=== PATIENT | male | born 1950 | race Caucasian/White ===

== ENCOUNTER → 2022-07-18 09:16 | Outpatient (CLI) | payer MEDICARE, BC, SELFPAY ==
[2022-07-18 10:33] LABS: Creatinine Urine Random 272.7 mg/dL
[2022-07-18 10:36] LABS: Microalbumi Creatinin Ratio Ur 32.2 ug/mg CR (<30); Microalbumin Urine Random 8.8 mg/dL (0-1.6)
[2022-07-18 10:38] LABS: Add Manual Diff / Slide Review NO; Basophils Absolute Auto 300 /uL (0-100); Eosinophils Absolute Auto 400 /uL (0-450); Eosinophils Percent Auto 4.2 % (2-4); Hematocrit 43.6 % (41-53); Hemoglobin 14.8 g/dL (13.5-17.5); Lymphocytes Absolute Auto 2300 /uL (1100-4500); Lymphocytes Percent Auto 24.8 % (25-40); Mean Corpuscular HGB Conc 33.9 % (30-36); Mean Corpuscular Hemoglobin 30.4 PG (26-34); Mean Corpuscular Volume 89.7 fL (80-100); Monocytes Absolute Auto 1000 /uL (0-900); Monocytes Percent Auto 10.8 % (3-14); Neutrophils Absolute Auto 5300 /uL (1500-7000); Neutrophils Percent Auto 57.2 % (50-75); Platelet Count 394 X10^3/uL (150-400); Red Blood Cell Count 4.86 X10^6/uL (4.5-5.9); White Blood Cell Count 9.3 X10^3/uL (4.5-11.0)
[2022-07-18 10:55] LABS: Hemoglobin A1C% w Est Avg Glu 8.9 % (4.0-6.0)
[2022-07-18 11:14] LABS: Alanine Aminotransferase 25 IU/L (<50); Albumin 4.4 g/dL (3.5-5.0); Albumin Globulin Ratio 1.3 (1.0-2.8); Alkaline Phosphatase 55 U/L (38-126); Aspartate Aminotransferase 24 IU/L (17-59); BUN Creatinine Ratio 16.3 (6-22); Bilirubin Total 0.6 mg/dL (0.2-1.3); Blood Urea Nitrogen 15 mg/dL (9-20); Carbon Dioxide 31 mmol/L (22-32); Chloride 97 mmol/L (98-107); Cholesterol 314 mg/dL (140-199); Estimated Glomerular Filt Rate > 60 mL/min (>60); Globulin 3.4 g/dL (1.7-4.1); Glucose 195 mg/dL (80-110); HDL Cholesterol 50 mg/dL (40-60); HEMOLYSIS < 15 (0-50); LDL Cholesterol Calculated 223 mg/dL (<100); Potassium 4.6 mmol/L (3.4-5.1); Sodium 136 mmol/L (137-145); Total Protein 7.8 g/dL (6.3-8.2); Triglycerides 204 mg/dL (35-150)
[2022-07-18 11:45] LABS: TSH w/ Reflex to FT4 2.18 uIU/mL (0.47-4.68)
[2022-07-18 12:01] LABS: Vitamin B12 691 pg/mL (239-931)
== END ==
PROVIDERS: PCP Family Medicine; Referring Provider Family Medicine; Visit Provider Family Medicine
DX: E11.9 Type 2 diabetes mellitus without complications (principal); G62.9 Polyneuropathy, unspecified
CPT/HCPCS: 36415; 80053; 80061; 82043; 82570; 82607; 83036; 84443; 85025

== ENCOUNTER → 2022-09-20 09:22 | Outpatient (CLI) | payer MEDICARE, BC, SELFPAY ==
--- NOTE | 2022-10-02 09:01 | DIAB.MNT ---
Initial Diabetes Medical Nutrition Therapy Assessment Name: Dawn Rios Date: 09/20/22 Time: 940-11a Dx: Type II Diabetes Provider: Adelia Reyes presents today for initial DM visit. Dx with DM 1 year ago with +FH of DM via brother, who had serious diabetes. States he is motivated to make change to avoid injections. Wants to know what her can do to improve his DM and how serious his DM is. Prior to dx endorses high carb diet, especially t night. Has reduced CHO intake since. Also not eating any red meat. Endorses some loss of feeing in LE. States he is working on increasing vegetable intake. Was eating out more frequently with a friend here recently. Not eating out since she left. Concerns for erectile dysfunction and connection to DM. 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 Has 2 adult children. Diet Recall: B: coffee, eggs x 2 with chilies, cheese, sausage or conrad OR egg salad on rice crackers D: salmon burger with onions and 1c couscous OR beyond burger with salad and onions OR chicken salad Sn: nuts Beverages: water 16oz, coffee 2c, +/- coconut water, ETOH 0-2 servings Anthropometrics: Ht: 69 Wt: 188# reported Weight history: +10# when first moved here reported d/t eating out Physical Activity: will be starting PT for hip. Walks 2-3 x per week for 2-4 mi. Self-Monitoring Blood Glucose: None. Diabetes Medications: Metformin 2000mg Glipizide 2.5mg Pertinent Labs: 07/2023: HgA1c 8.9% Chol: 314 T LDL: 223 HDL: 50 Past Medical History: (Last Updated 08/13/22 @ 12:50 by Jitendra Lockwood MD) Chronic back pain (~2017) Chronic knee pain Chronic neck pain Erectile dysfunction Grieving Hearing loss HSV-2 (herpes simplex virus 2) infection Hyperlipidemia Low back pain Peripheral neuropathy Type 2 diabetes mellitus without complication, with no history of insulin use (~2019) Nutrition Rx: Plate Method Nutrition Diagnosis: - Food and nutrition related knowledge deficit r/t no previous DSME or MNT for T2DM aeb pt report - Inconsistent energy intake r/t knowledge deficit aeb diet recall - Predicted inadequate fluids intake r/t limited water aeb diet recall Intervention: This participant was very receptive. Provided appropriate educational handouts. Discussed the following topics: Completed intake assessment. Discussed barriers to care. Pathophysiology of T2DM HgA1c, its correlation to blood glucose numbers, and rationale for goal Potential for self monitoring, benefits Plate Method, impact of macronutrients on blood sugar, meal timing, carbohydrate counting, pairing macronutrients and spreading out carbohydrates for better blood glucose management Fluid recommendations and impact of DM health ED and how DM and HTN impact blood flow Role of physical activity and recommendations Created SMART goals for patient self-care and success. Goals: Add protein shake 1x per day Increase water to 3-4c per day Add rowing machine safely 1x per week Follow-up: SUDARSHAN LORA follow-up in 4 weeks Joy Tolbert RDN, [facility] Certified Diabetes Care and Line Cook P: [phone] Thank you for this referral
== END ==
PROVIDERS: PCP Family Medicine; Referring Provider Family Medicine; Visit Provider Family Medicine
DX: E11.9 Type 2 diabetes mellitus without complications (principal); Z79.84 Long term (current) use of oral hypoglycemic drugs; Z71.3 Dietary counseling and surveillance
CPT/HCPCS: 97802

== ENCOUNTER → 2022-10-16 10:46 | Outpatient (CLI) | payer MEDICARE, BC, SELFPAY ==
[2022-10-16 11:38] LABS: Hemoglobin A1C% w Est Avg Glu 6.6 % (4.0-6.0)
[2022-10-16 11:47] LABS: Alanine Aminotransferase 25 IU/L (<50); Albumin 4.3 g/dL (3.5-5.0); Albumin Globulin Ratio 1.5 (1.0-2.8); Alkaline Phosphatase 48 U/L (38-126); Aspartate Aminotransferase 28 IU/L (17-59); BUN Creatinine Ratio 17.1 (6-22); Bilirubin Total 1.1 mg/dL (0.2-1.3); Blood Urea Nitrogen 18 mg/dL (9-20); Calcium 8.8 mg/dL (8.4-10.2); Carbon Dioxide 30 mmol/L (22-32); Chloride 96 mmol/L (98-107); Cholesterol 162 mg/dL (140-199); Estimated Glomerular Filt Rate > 60 mL/min (>60); Globulin 2.9 g/dL (1.7-4.1); Glucose 123 mg/dL (80-110); HDL Cholesterol 49 mg/dL (40-60); HEMOLYSIS < 15 (0-50); LDL Cholesterol Calculated 97 mg/dL (<100); Potassium 4.2 mmol/L (3.4-5.1); Sodium 134 mmol/L (137-145); Total Protein 7.2 g/dL (6.3-8.2); Triglycerides 80 mg/dL (35-150)
== END ==
PROVIDERS: PCP Family Medicine; Referring Provider Family Medicine; Visit Provider Family Medicine
DX: E11.9 Type 2 diabetes mellitus without complications (principal); E78.5 Hyperlipidemia, unspecified
CPT/HCPCS: 36415; 80053; 80061; 83036

== ENCOUNTER → 2022-10-17 13:51 | Outpatient (CLI) | payer MEDICARE, BC, SELFPAY ==
[2022-10-19 18:05] LABS: Fecal Immunochemical Test Negative (Negative)
== END ==
PROVIDERS: PCP Family Medicine; Referring Provider Family Medicine; Visit Provider Family Medicine
DX: Z12.11 Encounter for screening for malignant neoplasm of colon (principal); N52.9 Male erectile dysfunction, unspecified
CPT/HCPCS: 82274

== ENCOUNTER → 2022-11-19 | Outpatient (CLI) | payer MEDICARE, BC, SELFPAY ==
--- NOTE | 2022-11-19 10:57 | DI.RAD.S_ITS ---
PROCEDURE: XR LUMBAR SPINE MIN 4V INDICATIONS: chronic low back and SI pain TECHNIQUE: 5 views of the lumbar spine acquired, including oblique views. COMPARISON: None. FINDINGS: Bones: 5 [id number] vertebrae are present. There is scoliosis. Grade 1 anterolisthesis of L3 on L4. No vertebral body compression fractures. No suspicious bony lesions. Moderate degenerative disc disease at T12-L1, L2-L3, L3-L4, L4-L5 and L5-S1, and mild degenerative disease at L1-L2. There is bilateral severe facet arthropathy at L3-L4, L4-L5 and L5-S1. Baastrup's disease with enlarged spinous processes. Soft tissues: Overlying bowel gas pattern is normal. No suspicious soft tissue calcifications. Oblique: No pars defects. IMPRESSION: 1. Moderate degenerative disc disease in cervical spine. 2. Severe facet arthropathy. 3. Baastrup's disease. Dictated by: Thor Ritter M.D. on 11/19/2022 at 16:28 Approved by: Thor Ritter M.D. on 11/19/2022 at 16:32
== END ==
PROVIDERS: PCP Family Medicine; Referring Provider Family Medicine; Visit Provider Family Medicine
DX: M51.35 Other intervertebral disc degeneration, thoracolumbar region (principal); M51.36 Other intervertebral disc degeneration, lumbar region; M51.37 Other intervertebral disc degeneration, lumbosacral region; M47.816 Spondylosis without myelopathy or radiculopathy, lumbar region; M47.817 Spondylosis without myelopathy or radiculopathy, lumbosacral region; M48.26 Kissing spine, lumbar region; M54.9 Dorsalgia, unspecified; G89.29 Other chronic pain
CPT/HCPCS: 72110

== ENCOUNTER 2022-11-20 13:45 | Outpatient (RCR) | payer MEDICARE, BC, SELFPAY ==
--- NOTE | 2022-09-24 10:47 | PT.OIE ---
Current Diagnoses Type 2 diabetes mellitus without complications (09/24/22) Polyneuropathy, unspecified (09/24/22) Other chronic pain (09/24/22) Pain in right hip (09/24/22) Pain in right knee (09/24/22) Pain in unspecified knee (09/24/22) Stiffness of right hip, not elsewhere classified (09/24/22) Stiffness of right knee, not elsewhere classified (09/24/22) Low back pain, unspecified (09/24/22) Past Medical History (Last Updated 08/13/22 @ 12:50 by Jitendra Lockwood MD) Chronic back pain (~2017) Chronic knee pain Chronic neck pain Erectile dysfunction Grieving Hearing loss HSV-2 (herpes simplex virus 2) infection Hyperlipidemia Low back pain Peripheral neuropathy Type 2 diabetes mellitus without complication, with no history of insulin use (~2019) Past Surgical History (Last Updated 07/30/22 @ 20:04 by Merly Soria) Anesthesia History of Achilles tendon repair (~2015) Visit Care Team Role Provider Type Kristi Delvalle DO Attending Provider Physician Primary Care Provider Referring Provider Specialty: [facility] Address: [address] [place] [address], [address], [address] Phone: Fax: Email: [email or web address] Initial Evaluation PT-OP-A Visit Information Start: 09/24/22 17:31 Freq: Status: Active Protocol: Document 09/24/22 09:50 DCW (Rec: 09/24/22 17:53 DC [id number]) Out-Patient Physical Therapy Visit Information Visit Information Visit Type Initial Evaluation Visit Start Time 09:50 Visit Stop Time 10:30 Total Visit Minutes 40 Visit Number 1 Number of WIND ENERGY MECHANIC Visits 0 Evaluation Information Evaluation Date 09/24/22 PT-OP-B Current Condition Start: 09/24/22 17:31 Freq: Status: Active Protocol: Document 09/24/22 09:50 DCW (Rec: 09/24/22 17:53 DCW [id number]) Current Condition History of Current Condition Onset Date Six year history Current Complaints Low back pain, right hip pain, right knee pain History of Current Condition Pt is a 72 year old male presenting with a six year history of complex low back and right leg pain. Pt notes that pain largely began six years ago, when he tore his Achilles tendon while playing Pickleball. Reports he underwent a surgical repair that failed, and he was then unwilling to get any further surgery. Since that time, he has had a right medial meniscus tear, significant worsening of right hip pain, as well as a long-standing history of low back pain. 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 Pt has recently moved to the area from [place], where he had been participating in PT, which he notes was helpful . Admits, however, that in the five months since he moved, he has not really done anything at all. Feels working on flexibility and strength was helpful in the past. Treatment Goals Patient/Caregiver Goals Return to riding his bike, would also like to try playing pickleball again PT-OP-C Subjective Start: 09/24/22 17:31 Freq: Status: Active Protocol: Document 09/24/22 09:50 DCW (Rec: 09/24/22 17:53 DCW [id number]) OP-PT Subjective Patient Comments Patient Comments My medial calf is really atrophied after that Achilles tear. Patient Questionnaires Oswestry Low Back Index Oswestry Score 14/50 = 28% Oswestry Impairment 20 to 39% Impaired (Score 20- 39) OP-PT Pain Assessment Pain Assessment Grid Paper Pain Assessment Grid Completed Yes Location Right Posterior Hip Intensity 6 Scale Used Numeric (0 - 10) Frequency Frequent PT-OP-F Manual Assessment Start: 09/24/22 17:31 Freq: Status: Active Protocol: Document 09/24/22 09:50 DCW (Rec: 09/24/22 17:53 DCW [id number]) Manual Assessments Soft Tissue Assessment Soft Tissue Mobility Assessment Moderate-severe tone right piriformis, TFL/ITB, hamstrings Joint Mobility Assessment Joint Mobility Assessment Limitations in passive hip mobility into flexion or adduction, hard end feel PT-OP-K Range of Motion Start: 09/24/22 17:31 Freq: Status: Active Protocol: Document 09/24/22 09:50 DCW (Rec: 09/25/22 10:35 DCW [id number]) Hip Goniometric Range of Motion Hip Right Passive Hip ROM WFL No Testing Position Supine Flexion w/Knee Flexed 96 Straight Leg Raise 55 Comments Horizontal adduction unable to cross midline, hard end-feel PT-OP-L Special Tests Start: 09/24/22 17:31 Freq: Status: Active Protocol: Document 09/24/22 09:50 DCW (Rec: 09/25/22 10:35 DCW [id number]) Special Tests Lumbar Spine Special Tests Straight Leg Raise Test Results Hamstring tightness, limited 55? on R Manual Traction Test Results Negative A-P Shearing Test Results Negative PT-OP-M Strength Start: 09/24/22 17:31 Freq: Status: Active Protocol: Document 09/24/22 09:50 DCW (Rec: 09/25/22 10:35 DCW [id number]) Hip Strength Hip Manual Muscle Testing Right Flexion (L2) 3+ Fair+ Abduction 3+ Fair+ Adduction 3+ Fair+ Left Flexion (L2) 4 Good Abduction 4- Good- Adduction 4- Good- Knee Strength Knee Manual Muscle Testing Right Flexion (S2) 4+ Good+ Extension (L3) 4+ Good+ Left Flexion (S2) 4+ Good+ Extension (L3) 4+ Good+ Ankle/Foot Strength Ankle and Foot Manual Muscle Testing Right Dorsiflexion (L4) 4+ Good+ Plantarflexion (S1) 2+ Poor+ Left Dorsiflexion (L4) 4+ Good+ Plantarflexion (S1) 4+ Good+ PT-OP-Q Treatments Start: 09/24/22 17:31 Freq: Status: Active Protocol: Document 09/24/22 09:50 DCW (Rec: 09/25/22 10:35 AZW [id number]) Therapeutic Exercises Supine Exercises ITB stretch Supine Exercise Name ITB stretch /c strap Side right Comments HEP Hamstring stretch Supine Exercise Name HS stretch /c strap Side right Comments HEP Sitting Exercises Piriformis stretch Sitting Exercise Name Seated figure-4 Side right Comments HEP PT-OP-T Assessment and Plan Start: 09/24/22 17:31 Freq: Status: Active Protocol: Document 09/24/22 09:50 DCW (Rec: 09/25/22 10:47 DCW [id number]) Physical Therapy Assessment Rehab Potential Rehabilitation Potential Fair Evaluation Complexity Number of Personal Factors/Comorbidities 3 or More Number of Body Systems Impaired 4 or More Clinical Presentation at Evaluation Unstable Impairments Impairments Functional Activities, Functional Mobility,Gait,ROM, Soft Tissue Mobility,Strength, Tone Goals Three Impairment Pt unable to perform heel raise on right foot due to calf atrophy Halfway Goal (LTG) Pt to increase MMT of right plantar flexion to at least 3+ /5, demonstrating ability to perform heel raise on single leg, in order to help push-off during gait. LTG Duration 12/23/22 Two Impairment Pt unable to perform preffered outdoor activities, like bike riding Payroll Clerk Goal (LTG) Pt to safely return to road bike riding without pain in his hip or knee LTG Duration 12/23/22 One Impairment Pt does not have an appropriate home exercise program Short Term Goal (STG) Pt to be independent and compliant with an appropriate HEP STG Duration 10/22/22 Assessment Summary Assessment Pt presents with a complex injury history affecting his right ankle, knee, and hip, as well as his low back. [age]- year-old injury to his Achilles tendon has impacted his entire chain up his leg, resulting in uneven degeneration in his knee and hip, a medial meniscus injury, and low back pain, DJD. Pt has previously undergone physical therapy when he was living in [place], and felt a focus on flexibility and LE strengthening was beneficial, but has since stopped doing most of his activities. Pt should benefit from skilled therapeutic intervention focusing on decreasing tone, improving joint mobility, and balance/gait training, which has been impacted by his prior Achilles injury. Physical Therapy Plan Frequency and Duration Frequency of Treatment 1-2x/week Plan of Care Start Date 09/24/22 Plan of Care End Date 12/23/22 Therapeutic Interventions Therapeutic Interventions Balance Training,Gait Training ,Home Exercise Program,Joint Mobilizations,Manual Therapy, Neuromuscular Re-education, Patient/Caregiver Education, Self-Care/Home Management,Soft Tissue Mobilization, Therapeutic Activities, Therapeutic Exercises Next Visit Focus/Plan Next Note Type Treatment Note Next Visit Plan LE strengthening, joint mobs, STM, balance training
--- NOTE | 2022-09-24 10:48 | PT.OPPOC ---
Physical, Occupational & Speech Therapy At [facility] Current Diagnoses Type 2 diabetes mellitus without complications (09/24/22) Polyneuropathy, unspecified (09/24/22) Other chronic pain (09/24/22) Pain in right hip (09/24/22) Pain in right knee (09/24/22) Pain in unspecified knee (09/24/22) Stiffness of right hip, not elsewhere classified (09/24/22) Stiffness of right knee, not elsewhere classified (09/24/22) Low back pain, unspecified (09/24/22) Visit Care Team Role Provider Type Kristi Delvalle DO Attending Provider Physician Primary Care Provider Referring Provider Specialty: Family Practice Address: [address] [place] [address], [address], [address] Phone: Fax: Email: [email or web address] Plan Of Care PT-OP-T Assessment and Plan Start: 09/24/22 17:31 Freq: Status: Active Protocol: Document 09/24/22 09:50 DCW (Rec: 09/25/22 10:47 DCW [id number]) Physical Therapy Assessment Rehab Potential Rehabilitation Potential Fair Evaluation Complexity Number of Personal Factors/Comorbidities 3 or More Number of Body Systems Impaired 4 or More Clinical Presentation at Evaluation Unstable Impairments Impairments Functional Activities, Functional Mobility,Gait,ROM, Soft Tissue Mobility,Strength, Tone Goals Three Impairment Pt unable to perform heel raise on right foot due to calf atrophy Patch Sander Goal (LTG) Pt to increase MMT of right plantar flexion to at least 3+ /5, demonstrating ability to perform heel raise on single leg, in order to help push-off during gait. LTG Duration 12/23/22 Two Impairment Pt unable to perform preffered outdoor activities, like bike riding Patch Sander Goal (LTG) Pt to safely return to road bike riding without pain in his hip or knee LTG Duration 12/23/22 One Impairment Pt does not have an appropriate home exercise program Short Term Goal (STG) Pt to be independent and compliant with an appropriate HEP STG Duration 10/22/22 Assessment Summary Assessment Pt presents with a complex injury history affecting his right ankle, knee, and hip, as well as his low back. [age]- year-old injury to his Achilles tendon has impacted his entire chain up his leg, resulting in uneven degeneration in his knee and hip, a medial meniscus injury, and low back pain, DJD. Pt has previously undergone physical therapy when he was living in [place], and felt a focus on flexibility and LE strengthening was beneficial, but has since stopped doing most of his activities. Pt should benefit from skilled therapeutic intervention focusing on decreasing tone, improving joint mobility, and balance/gait training, which has been impacted by his prior Achilles injury. Physical Therapy Plan Frequency and Duration Frequency of Treatment 1-2x/week Plan of Care Start Date 09/24/22 Plan of Care End Date 12/23/22 Therapeutic Interventions Therapeutic Interventions Balance Training,Gait Training ,Home Exercise Program,Joint Mobilizations,Manual Therapy, Neuromuscular Re-education, Patient/Caregiver Education, Self-Care/Home Management,Soft Tissue Mobilization, Therapeutic Activities, Therapeutic Exercises Next Visit Focus/Plan Next Note Type Treatment Note Next Visit Plan LE strengthening, joint mobs, STM, balance training Plan of Care Dates Plan of Care Start Date 09/24/22 Plan of Care End Date 12/23/22 Electronically Signed by: Pete Peralta, PT 09/25/22 0008 If you are in agreement with this Plan of Care, please return a signed and dated copy. I have reviewed this Plan of Care and certify that the skilled therapy services above are required to meet the patient?s needs. Physician Signature Date Printed Name and Credentials Clinical Instructor Signature Printed Name and Credentials
--- NOTE | 2022-09-28 10:34 | PT.OTN ---
Current Diagnoses Type 2 diabetes mellitus without complications (09/28/22) Polyneuropathy, unspecified (09/28/22) Other chronic pain (09/28/22) Pain in right hip (09/28/22) Pain in right knee (09/28/22) Pain in unspecified knee (09/28/22) Stiffness of right hip, not elsewhere classified (09/28/22) Stiffness of right knee, not elsewhere classified (09/28/22) Low back pain, unspecified (09/28/22) Physical Therapy Treatment Note PT-OP-A Visit Information Start: 09/24/22 17:31 Freq: Status: Active Protocol: Document 09/28/22 09:55 DCW (Rec: 09/28/22 10:34 DCW [id number]) Out-Patient Physical Therapy Visit Information Visit Information Visit Type Treatment Note Visit Note 10 min late Visit Start Time 09:55 Visit Stop Time 10:30 Total Visit Minutes 35 Visit Number 2 Number of PHYSICIAN SCIENTIST Visits 0 Evaluation Information Evaluation Date 09/24/22 PT-OP-B Current Condition Start: 09/24/22 17:31 Freq: Status: Active Protocol: Document 09/24/22 09:50 DCW (Rec: 09/24/22 17:53 DCW [id number]) Current Condition History of Current Condition Onset Date Six year history Current Complaints Low back pain, right hip pain, right knee pain History of Current Condition Pt is a 72 year old male presenting with a six year history of complex low back and right leg pain. Pt notes that pain largely began six years ago, when he tore his Achilles tendon while playing Pickleball. Reports he underwent a surgical repair that failed, and he was then unwilling to get any further surgery. Since that time, he has had a right medial meniscus tear, significant worsening of right hip pain, as well as a long-standing history of low back pain. 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 Pt has recently moved to the area from [place], where he had been participating in PT, which he notes was helpful . Admits, however, that in the five months since he moved, he has not really done anything at all. Feels working on flexibility and strength was helpful in the past. Treatment Goals Patient/Caregiver Goals Return to riding his bike, would also like to try playing pickleball again PT-OP-C Subjective Start: 09/24/22 17:31 Freq: Status: Active Protocol: Document 09/28/22 09:55 DCW (Rec: 09/28/22 10:34 DCW [id number]) OP-PT Subjective Patient Comments Patient Comments Has been doing a lot of yard work, bending and digging, and reports his back and hip are pretty sore. PT-OP-F Manual Assessment Start: 09/24/22 17:31 Freq: Status: Active Protocol: Document 09/24/22 09:50 DCW (Rec: 09/24/22 17:53 DCW [id number]) Manual Assessments Soft Tissue Assessment Soft Tissue Mobility Assessment Moderate-severe tone right piriformis, TFL/ITB, hamstrings Joint Mobility Assessment Joint Mobility Assessment Limitations in passive hip mobility into flexion or adduction, hard end feel PT-OP-K Range of Motion Start: 09/24/22 17:31 Freq: Status: Active Protocol: Document 09/24/22 09:50 DCW (Rec: 09/25/22 10:35 DCW [id number]) Hip Goniometric Range of Motion Hip Right Passive Hip ROM WFL No Testing Position Supine Flexion w/Knee Flexed 96 Straight Leg Raise 55 Comments Horizontal adduction unable to cross midline, hard end-feel PT-OP-L Special Tests Start: 09/24/22 17:31 Freq: Status: Active Protocol: Document 09/24/22 09:50 DCW (Rec: 09/25/22 10:35 DCW [id number]) Special Tests Lumbar Spine Special Tests Straight Leg Raise Test Results Hamstring tightness, limited 55? on R Manual Traction Test Results Negative A-P Shearing Test Results Negative PT-OP-M Strength Start: 09/24/22 17:31 Freq: Status: Active Protocol: Document 09/24/22 09:50 DCW (Rec: 09/25/22 10:35 DCW [id number]) Hip Strength Hip Manual Muscle Testing Right Flexion (L2) 3+ Fair+ Abduction 3+ Fair+ Adduction 3+ Fair+ Left Flexion (L2) 4 Good Abduction 4- Good- Adduction 4- Good- Knee Strength Knee Manual Muscle Testing Right Flexion (S2) 4+ Good+ Extension (L3) 4+ Good+ Left Flexion (S2) 4+ Good+ Extension (L3) 4+ Good+ Ankle/Foot Strength Ankle and Foot Manual Muscle Testing Right Dorsiflexion (L4) 4+ Good+ Plantarflexion (S1) 2+ Poor+ Left Dorsiflexion (L4) 4+ Good+ Plantarflexion (S1) 4+ Good+ PT-OP-Q Treatments Start: 09/24/22 17:31 Freq: Status: Active Protocol: Document 09/28/22 09:55 DCW (Rec: 09/28/22 10:34 DCW [id number]) Therapeutic Exercises Supine Exercises Psoas stretch Supine Exercise Name Off table stretch Side right ITB stretch Supine Exercise Name ITB stretch Side right Comments HEP Hamstring stretch Supine Exercise Name HS stretch Side right Comments HEP Sidelying Exercises Reverse Clamshell Sidelying Exercise Name Reverse Clamshell Side bilateral Resistance Lv 3 Clamshell Sidelying Exercise Name Clamshell Side bilateral Resistance Lv 3 Manual Therapy Treatment Soft Tissue Mobilization ITB Body Location R ITB Mobilization Type Sustained Pressure,Trigger Point Release Intensity/Depth Superficial Piriformis Body Location R Piriformis Mobilization Type Sustained Pressure,Trigger Point Release Intensity/Depth Superficial PT-OP-T Assessment and Plan Start: 09/24/22 17:31 Freq: Status: Active Protocol: Document 09/28/22 09:55 DCW (Rec: 09/28/22 10:34 DCW [id number]) Physical Therapy Assessment Impairments Impairments Functional Activities, Functional Mobility,Gait,ROM, Soft Tissue Mobility,Strength, Tone Goals Three Impairment Pt unable to perform heel raise on right foot due to calf atrophy Retirement Goal (LTG) Pt to increase MMT of right plantar flexion to at least 3+ /5, demonstrating ability to perform heel raise on single leg, in order to help push-off during gait. LTG Duration 12/23/22 Two Impairment Pt unable to perform preffered outdoor activities, like bike riding Retirement Goal (LTG) Pt to safely return to road bike riding without pain in his hip or knee LTG Duration 12/23/22 One Impairment Pt does not have an appropriate home exercise program Short Term Goal (STG) Pt to be independent and compliant with an appropriate HEP STG Duration 10/22/22 Assessment Summary Assessment Pt running late today, focus on today's treatment session mainly flexibility and stretching, added clamshell and reverse clamshell to HEP, pt reports he is wanting to get out and walk more if weather starts to warm up. Physical Therapy Plan Frequency and Duration Frequency of Treatment 1-2x/week Plan of Care Start Date 09/24/22 Plan of Care End Date 12/23/22 Therapeutic Interventions Therapeutic Interventions Balance Training,Gait Training ,Home Exercise Program,Joint Mobilizations,Manual Therapy, Neuromuscular Re-education, Patient/Caregiver Education, Self-Care/Home Management,Soft Tissue Mobilization, Therapeutic Activities, Therapeutic Exercises Next Visit Focus/Plan Next Note Type Treatment Note Next Visit Plan LE strengthening, joint mobs, STM, balance training
--- NOTE | 2022-10-02 10:36 | PT.OTN ---
Current Diagnoses Type 2 diabetes mellitus without complications (10/02/22) Polyneuropathy, unspecified (10/02/22) Other chronic pain (10/02/22) Pain in right hip (10/02/22) Pain in right knee (10/02/22) Pain in unspecified knee (10/02/22) Stiffness of right hip, not elsewhere classified (10/02/22) Stiffness of right knee, not elsewhere classified (10/02/22) Low back pain, unspecified (10/02/22) Physical Therapy Treatment Note PT-OP-A Visit Information Start: 09/24/22 17:31 Freq: Status: Active Protocol: Document 10/02/22 09:45 DCW (Rec: 10/02/22 10:36 DCW [id number]) Out-Patient Physical Therapy Visit Information Visit Information Visit Type Treatment Note Visit Start Time 09:45 Visit Stop Time 10:30 Total Visit Minutes 45 Visit Number 3 Number of CHIEF OPERATING OFFICER Visits 0 Evaluation Information Evaluation Date 09/24/22 PT-OP-B Current Condition Start: 09/24/22 17:31 Freq: Status: Active Protocol: Document 09/24/22 09:50 DCW (Rec: 09/24/22 17:53 DCW [id number]) Current Condition History of Current Condition Onset Date Six year history Current Complaints Low back pain, right hip pain, right knee pain History of Current Condition Pt is a 72 year old male presenting with a six year history of complex low back and right leg pain. Pt notes that pain largely began six years ago, when he tore his Achilles tendon while playing Pickleball. Reports he underwent a surgical repair that failed, and he was then unwilling to get any further surgery. Since that time, he has had a right medial meniscus tear, significant worsening of right hip pain, as well as a long-standing history of low back pain. 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 Pt has recently moved to the area from [place], where he had been participating in PT, which he notes was helpful . Admits, however, that in the five months since he moved, he has not really done anything at all. Feels working on flexibility and strength was helpful in the past. Treatment Goals Patient/Caregiver Goals Return to riding his bike, would also like to try playing pickleball again PT-OP-C Subjective Start: 09/24/22 17:31 Freq: Status: Active Protocol: Document 10/02/22 09:45 DCW (Rec: 10/02/22 10:36 DCW [id number]) OP-PT Subjective Patient Comments Patient Comments Pt notes he is not good. Notes he was very sore following his last appointment , has been limping around all weekend. Has not done any of the strengthening exercises, because that was the only thing that was different, so he doesn't want to add them. PT-OP-F Manual Assessment Start: 09/24/22 17:31 Freq: Status: Active Protocol: Document 09/24/22 09:50 DCW (Rec: 09/24/22 17:53 DCW [id number]) Manual Assessments Soft Tissue Assessment Soft Tissue Mobility Assessment Moderate-severe tone right piriformis, TFL/ITB, hamstrings Joint Mobility Assessment Joint Mobility Assessment Limitations in passive hip mobility into flexion or adduction, hard end feel PT-OP-K Range of Motion Start: 09/24/22 17:31 Freq: Status: Active Protocol: Document 09/24/22 09:50 DCW (Rec: 09/25/22 10:35 DCW [id number]) Hip Goniometric Range of Motion Hip Right Passive Hip ROM WFL No Testing Position Supine Flexion w/Knee Flexed 96 Straight Leg Raise 55 Comments Horizontal adduction unable to cross midline, hard end-feel PT-OP-L Special Tests Start: 09/24/22 17:31 Freq: Status: Active Protocol: Document 09/24/22 09:50 DCW (Rec: 09/25/22 10:35 DCW [id number]) Special Tests Lumbar Spine Special Tests Straight Leg Raise Test Results Hamstring tightness, limited 55? on R Manual Traction Test Results Negative A-P Shearing Test Results Negative PT-OP-M Strength Start: 09/24/22 17:31 Freq: Status: Active Protocol: Document 09/24/22 09:50 DCW (Rec: 09/25/22 10:35 DCW [id number]) Hip Strength Hip Manual Muscle Testing Right Flexion (L2) 3+ Fair+ Abduction 3+ Fair+ Adduction 3+ Fair+ Left Flexion (L2) 4 Good Abduction 4- Good- Adduction 4- Good- Knee Strength Knee Manual Muscle Testing Right Flexion (S2) 4+ Good+ Extension (L3) 4+ Good+ Left Flexion (S2) 4+ Good+ Extension (L3) 4+ Good+ Ankle/Foot Strength Ankle and Foot Manual Muscle Testing Right Dorsiflexion (L4) 4+ Good+ Plantarflexion (S1) 2+ Poor+ Left Dorsiflexion (L4) 4+ Good+ Plantarflexion (S1) 4+ Good+ PT-OP-Q Treatments Start: 09/24/22 17:31 Freq: Status: Active Protocol: Document 10/02/22 09:45 DCW (Rec: 10/02/22 10:36 DCW [id number]) Therapeutic Exercises Supine Exercises Hamstring stretch Supine Exercise Name HS stretch Side right Comments HEP Other Exercises Step-ups Other Exercise Name Step-ups Side right Equipment Used 4 step Manual Therapy Treatment Soft Tissue Mobilization ITB Body Location R ITB Mobilization Type Sustained Pressure,Trigger Point Release Intensity/Depth Superficial Piriformis Body Location R Piriformis Mobilization Type Sustained Pressure,Trigger Point Release Intensity/Depth Superficial PT-OP-T Assessment and Plan Start: 09/24/22 17:31 Freq: Status: Active Protocol: Document 10/02/22 09:45 DCW (Rec: 10/02/22 10:36 DCW [id number]) Physical Therapy Assessment Impairments Impairments Functional Activities, Functional Mobility,Gait,ROM, Soft Tissue Mobility,Strength, Tone Goals Three Impairment Pt unable to perform heel raise on right foot due to calf atrophy [facility] Goal (LTG) Pt to increase MMT of right plantar flexion to at least 3+ /5, demonstrating ability to perform heel raise on single leg, in order to help push-off during gait. LTG Duration 12/23/22 Two Impairment Pt unable to perform preffered outdoor activities, like bike riding [facility] Goal (LTG) Pt to safely return to road bike riding without pain in his hip or knee LTG Duration 12/23/22 One Impairment Pt does not have an appropriate home exercise program Short Term Goal (STG) Pt to be independent and compliant with an appropriate HEP STG Duration 10/22/22 Assessment Summary Assessment Pt complaining of increased pain along medial knee, notes point-specific pain at pes anserine, flared up following last visit. Attempted to avoid any medial/lateral shearing force during today's treatment , pt noted some mild increased tenderness, but overall improvement compared to this past weekend. Physical Therapy Plan Frequency and Duration Frequency of Treatment 1-2x/week Plan of Care Start Date 09/24/22 Plan of Care End Date 12/23/22 Therapeutic Interventions Therapeutic Interventions Balance Training,Gait Training ,Home Exercise Program,Joint Mobilizations,Manual Therapy, Neuromuscular Re-education, Patient/Caregiver Education, Self-Care/Home Management,Soft Tissue Mobilization, Therapeutic Activities, Therapeutic Exercises Next Visit Focus/Plan Next Note Type Treatment Note Next Visit Plan LE strengthening, joint mobs, STM, balance training
--- NOTE | 2022-10-05 10:31 | PT.OTN ---
Current Diagnoses Type 2 diabetes mellitus without complications (10/05/22) Polyneuropathy, unspecified (10/05/22) Other chronic pain (10/05/22) Pain in right hip (10/05/22) Pain in right knee (10/05/22) Pain in unspecified knee (10/05/22) Stiffness of right hip, not elsewhere classified (10/05/22) Stiffness of right knee, not elsewhere classified (10/05/22) Low back pain, unspecified (10/05/22) Physical Therapy Treatment Note PT-OP-A Visit Information Start: 09/24/22 17:31 Freq: Status: Active Protocol: Document 10/05/22 09:45 DCW (Rec: 10/05/22 10:31 DCW [id number]) Out-Patient Physical Therapy Visit Information Visit Information Visit Type Treatment Note Visit Start Time 09:45 Visit Stop Time 10:30 Total Visit Minutes 45 Visit Number 4 Number of VICE PRESIDENT [employer] Visits 0 Evaluation Information Evaluation Date 09/24/22 PT-OP-B Current Condition Start: 09/24/22 17:31 Freq: Status: Active Protocol: Document 09/24/22 09:50 DCW (Rec: 09/24/22 17:53 DCW [id number]) Current Condition History of Current Condition Onset Date Six year history Current Complaints Low back pain, right hip pain, right knee pain History of Current Condition Pt is a 72 year old male presenting with a six year history of complex low back and right leg pain. Pt notes that pain largely began six years ago, when he tore his Achilles tendon while playing Pickleball. Reports he underwent a surgical repair that failed, and he was then unwilling to get any further surgery. Since that time, he has had a right medial meniscus tear, significant worsening of right hip pain, as well as a long-standing history of low back pain. 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 Pt has recently moved to the area from [place], where he had been participating in PT, which he notes was helpful . Admits, however, that in the five months since he moved, he has not really done anything at all. Feels working on flexibility and strength was helpful in the past. Treatment Goals Patient/Caregiver Goals Return to riding his bike, would also like to try playing pickleball again PT-OP-C Subjective Start: 09/24/22 17:31 Freq: Status: Active Protocol: Document 10/05/22 09:45 DCW (Rec: 10/05/22 10:31 DCW [id number]) OP-PT Subjective Patient Comments Patient Comments Pt reports he is about 80% better following his flare-up last week, however still feeling more sore than usual PT-OP-F Manual Assessment Start: 09/24/22 17:31 Freq: Status: Active Protocol: Document 09/24/22 09:50 DCW (Rec: 09/24/22 17:53 DCW [id number]) Manual Assessments Soft Tissue Assessment Soft Tissue Mobility Assessment Moderate-severe tone right piriformis, TFL/ITB, hamstrings Joint Mobility Assessment Joint Mobility Assessment Limitations in passive hip mobility into flexion or adduction, hard end feel PT-OP-K Range of Motion Start: 09/24/22 17:31 Freq: Status: Active Protocol: Document 09/24/22 09:50 DCW (Rec: 09/25/22 10:35 DCW [id number]) Hip Goniometric Range of Motion Hip Right Passive Hip ROM WFL No Testing Position Supine Flexion w/Knee Flexed 96 Straight Leg Raise 55 Comments Horizontal adduction unable to cross midline, hard end-feel PT-OP-L Special Tests Start: 09/24/22 17:31 Freq: Status: Active Protocol: Document 09/24/22 09:50 DCW (Rec: 09/25/22 10:35 DCW [id number]) Special Tests Lumbar Spine Special Tests Straight Leg Raise Test Results Hamstring tightness, limited 55? on R Manual Traction Test Results Negative A-P Shearing Test Results Negative PT-OP-M Strength Start: 09/24/22 17:31 Freq: Status: Active Protocol: Document 09/24/22 09:50 DCW (Rec: 09/25/22 10:35 DCW [id number]) Hip Strength Hip Manual Muscle Testing Right Flexion (L2) 3+ Fair+ Abduction 3+ Fair+ Adduction 3+ Fair+ Left Flexion (L2) 4 Good Abduction 4- Good- Adduction 4- Good- Knee Strength Knee Manual Muscle Testing Right Flexion (S2) 4+ Good+ Extension (L3) 4+ Good+ Left Flexion (S2) 4+ Good+ Extension (L3) 4+ Good+ Ankle/Foot Strength Ankle and Foot Manual Muscle Testing Right Dorsiflexion (L4) 4+ Good+ Plantarflexion (S1) 2+ Poor+ Left Dorsiflexion (L4) 4+ Good+ Plantarflexion (S1) 4+ Good+ PT-OP-Q Treatments Start: 09/24/22 17:31 Freq: Status: Active Protocol: Document 10/05/22 09:45 DCW (Rec: 10/05/22 10:31 DCW [id number]) Therapeutic Exercises Supine Exercises ITB stretch Supine Exercise Name ITB stretch Side right Comments HEP Hamstring stretch Supine Exercise Name HS stretch Side right Comments HEP Sidelying Exercises Psoas Stretch Sidelying Exercise Name Hip flexor stretch Side right Sitting Exercises Hamstring Stretch Sitting Exercise Name Seated HS stretch Side bilateral Manual Therapy Treatment Soft Tissue Mobilization ITB Body Location R ITB Mobilization Type Sustained Pressure,Trigger Point Release Intensity/Depth Superficial Body Position Sidelying Piriformis Body Location R Piriformis Mobilization Type Sustained Pressure,Trigger Point Release Intensity/Depth Superficial Body Position Sidelying PT-OP-T Assessment and Plan Start: 09/24/22 17:31 Freq: Status: Active Protocol: Document 10/05/22 09:45 DCW (Rec: 10/05/22 10:31 DCW [id number]) Physical Therapy Assessment Impairments Impairments Functional Activities, Functional Mobility,Gait,ROM, Soft Tissue Mobility,Strength, Tone Goals Three Impairment Pt unable to perform heel raise on right foot due to calf atrophy Steam Hammer Operator Goal (LTG) Pt to increase MMT of right plantar flexion to at least 3+ /5, demonstrating ability to perform heel raise on single leg, in order to help push-off during gait. LTG Duration 12/23/22 Two Impairment Pt unable to perform preffered outdoor activities, like bike riding Steam Hammer Operator Goal (LTG) Pt to safely return to road bike riding without pain in his hip or knee LTG Duration 12/23/22 One Impairment Pt does not have an appropriate home exercise program Short Term Goal (STG) Pt to be independent and compliant with an appropriate HEP STG Duration 10/22/22 Assessment Summary Assessment Continued to focus more on STM and flexibility due to ongoing complaints of knee soreness, does appear to be getting better, recommended increasing focus on HS stretching, insertion of semitendinosis appears to be the tender point. Physical Therapy Plan Frequency and Duration Frequency of Treatment 1-2x/week Plan of Care Start Date 09/24/22 Plan of Care End Date 12/23/22 Therapeutic Interventions Therapeutic Interventions Balance Training,Gait Training ,Home Exercise Program,Joint Mobilizations,Manual Therapy, Neuromuscular Re-education, Patient/Caregiver Education, Self-Care/Home Management,Soft Tissue Mobilization, Therapeutic Activities, Therapeutic Exercises Next Visit Focus/Plan Next Note Type Treatment Note Next Visit Plan LE strengthening, joint mobs, STM, balance training
--- NOTE | 2022-10-08 10:30 | PT.OTN ---
Current Diagnoses Type 2 diabetes mellitus without complications (10/08/22) Polyneuropathy, unspecified (10/08/22) Other chronic pain (10/08/22) Pain in right hip (10/08/22) Pain in right knee (10/08/22) Pain in unspecified knee (10/08/22) Stiffness of right hip, not elsewhere classified (10/08/22) Stiffness of right knee, not elsewhere classified (10/08/22) Low back pain, unspecified (10/08/22) Physical Therapy Treatment Note PT-OP-A Visit Information Start: 09/24/22 17:31 Freq: Status: Active Protocol: Document 10/08/22 09:50 SP (Rec: 10/08/22 10:41 SP [id number]) Out-Patient Physical Therapy Visit Information Visit Information Visit Type Treatment Note Visit Start Time 09:50 Visit Stop Time 10:30 Total Visit Minutes 40 Visit Number 5 Number of QUALITY IMPROVEMENT COORDINATOR Visits 1 PT-OP-B Current Condition Start: 09/24/22 17:31 Freq: Status: Active Protocol: Document 09/24/22 09:50 DCW (Rec: 09/24/22 17:53 DCW [id number]) Current Condition History of Current Condition Onset Date Six year history Current Complaints Low back pain, right hip pain, right knee pain History of Current Condition Pt is a 72 year old male presenting with a six year history of complex low back and right leg pain. Pt notes that pain largely began six years ago, when he tore his Achilles tendon while playing Pickleball. Reports he underwent a surgical repair that failed, and he was then unwilling to get any further surgery. Since that time, he has had a right medial meniscus tear, significant worsening of right hip pain, as well as a long-standing history of low back pain. 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 Pt has recently moved to the area from [place], where he had been participating in PT, which he notes was helpful . Admits, however, that in the five months since he moved, he has not really done anything at all. Feels working on flexibility and strength was helpful in the past. Treatment Goals Patient/Caregiver Goals Return to riding his bike, would also like to try playing pickleball again PT-OP-C Subjective Start: 09/24/22 17:31 Freq: Status: Active Protocol: Document 10/08/22 09:50 SP (Rec: 10/08/22 10:41 SP [id number]) OP-PT Subjective Patient Comments Patient Comments Pt reports maybe little better 85% medial L knee, ITB. He stated adverse affects >24 hrs thinks with clam/reverse clam so stopped. PT-OP-F Manual Assessment Start: 09/24/22 17:31 Freq: Status: Active Protocol: Document 09/24/22 09:50 DCW (Rec: 09/24/22 17:53 DCW [id number]) Manual Assessments Soft Tissue Assessment Soft Tissue Mobility Assessment Moderate-severe tone right piriformis, TFL/ITB, hamstrings Joint Mobility Assessment Joint Mobility Assessment Limitations in passive hip mobility into flexion or adduction, hard end feel PT-OP-K Range of Motion Start: 09/24/22 17:31 Freq: Status: Active Protocol: Document 09/24/22 09:50 DCW (Rec: 09/25/22 10:35 DCW [id number]) Hip Goniometric Range of Motion Hip Right Passive Hip ROM WFL No Testing Position Supine Flexion w/Knee Flexed 96 Straight Leg Raise 55 Comments Horizontal adduction unable to cross midline, hard end-feel PT-OP-L Special Tests Start: 09/24/22 17:31 Freq: Status: Active Protocol: Document 09/24/22 09:50 DCW (Rec: 09/25/22 10:35 DCW [id number]) Special Tests Lumbar Spine Special Tests Straight Leg Raise Test Results Hamstring tightness, limited 55? on R Manual Traction Test Results Negative A-P Shearing Test Results Negative PT-OP-M Strength Start: 09/24/22 17:31 Freq: Status: Active Protocol: Document 09/24/22 09:50 DCW (Rec: 09/25/22 10:35 DCW [id number]) Hip Strength Hip Manual Muscle Testing Right Flexion (L2) 3+ Fair+ Abduction 3+ Fair+ Adduction 3+ Fair+ Left Flexion (L2) 4 Good Abduction 4- Good- Adduction 4- Good- Knee Strength Knee Manual Muscle Testing Right Flexion (S2) 4+ Good+ Extension (L3) 4+ Good+ Left Flexion (S2) 4+ Good+ Extension (L3) 4+ Good+ Ankle/Foot Strength Ankle and Foot Manual Muscle Testing Right Dorsiflexion (L4) 4+ Good+ Plantarflexion (S1) 2+ Poor+ Left Dorsiflexion (L4) 4+ Good+ Plantarflexion (S1) 4+ Good+ PT-OP-Q Treatments Start: 09/24/22 17:31 Freq: Status: Active Protocol: Document 10/08/22 09:50 SP (Rec: 10/08/22 10:41 SP [id number]) Therapeutic Exercises Supine Exercises resisted clamshell Supine Exercise Name added to HEP Side bilateral Reps/Minutes x10 Comments cued PPT/neutral spine- painfree range LTR Supine Exercise Name in PT- recheck for HEP next tx Side bilateral Reps/Minutes 10SH x5 reps- (more limited L) Comments cued awareness neutral pelvic- good feedback stretch Psoas stretch Supine Exercise Name Off table stretch- added toHEP Side right Reps/Minutes 30-60 Comments cued awareness neutral pelvic ITB stretch Supine Exercise Name ITB stretch Side right Reps/Minutes 60 w/ Strap Comments HEP Hamstring stretch Supine Exercise Name HS stretch- HEP reviewed Side right Equipment Used strap Reps/Minutes 30 Comments cue quad fac, knee extension Sidelying Exercises Reverse Clamshell Sidelying Exercise Name Hold- thinks caused R knee pain 24 hrs last tx Clamshell Sidelying Exercise Name Hold- thinks caused R knee pain 24 hrs last tx Standing Exercises TKE Standing Exercise Name added to HEP Resistance TB #2 Reps/Minutes x10 Comments good response Manual Therapy Treatment Soft Tissue Mobilization ITB Body Location R ITB Mobilization Type Instrument Assisted,Sustained Pressure,Trigger Point Release Intensity/Depth Moderate Body Position Sidelying Comments manual, use rolling pin- good feedback response Piriformis Body Location R Piriformis Mobilization Type Sustained Pressure,Trigger Point Release Intensity/Depth Moderate Body Position Sidelying Comments manual sustained pressure with /without small range hip ER FM PT-OP-T Assessment and Plan Start: 09/24/22 17:31 Freq: Status: Active Protocol: Document 10/08/22 09:50 SP (Rec: 10/08/22 10:41 SP [id number]) Physical Therapy Assessment Goals Three Impairment Pt unable to perform heel raise on right foot due to calf atrophy Prison Goal (LTG) Pt to increase MMT of right plantar flexion to at least 3+ /5, demonstrating ability to perform heel raise on single leg, in order to help push-off during gait. LTG Duration 12/23/22 Two Impairment Pt unable to perform preffered outdoor activities, like bike riding Director Of Development Goal (LTG) Pt to safely return to road bike riding without pain in his hip or knee LTG Duration 12/23/22 One Impairment Pt does not have an appropriate home exercise program Short Term Goal (STG) Pt to be independent and compliant with an appropriate HEP STG Duration 10/22/22 Assessment Summary Assessment Pt good response to stretching HEP painfree. Discontinued side clam HEP due to adverse affects post last tx, no adverse affect to added resisted supine clam and standing TKE. PRovided HOs for recall/set up/form with verbalized understanding perform at home for progression if good feedback as in today's tx. Cues for set up/form Physical Therapy Plan Frequency and Duration Frequency of Treatment 1-2x/week Plan of Care Start Date 09/24/22 Plan of Care End Date 12/23/22 Therapeutic Interventions Therapeutic Interventions Balance Training,Gait Training ,Home Exercise Program,Joint Mobilizations,Manual Therapy, Neuromuscular Re-education, Patient/Caregiver Education, Self-Care/Home Management,Soft Tissue Mobilization, Therapeutic Activities, Therapeutic Exercises Next Visit Focus/Plan Next Note Type Treatment Note Next Visit Plan Recheck: TKE, resisted supine clam. POC: LE strengthening, joint mobs, STM, balance training
--- NOTE | 2022-10-12 10:30 | PT.OTN ---
Current Diagnoses Type 2 diabetes mellitus without complications (10/12/22) Polyneuropathy, unspecified (10/12/22) Other chronic pain (10/12/22) Pain in right hip (10/12/22) Pain in right knee (10/12/22) Pain in unspecified knee (10/12/22) Stiffness of right hip, not elsewhere classified (10/12/22) Stiffness of right knee, not elsewhere classified (10/12/22) Low back pain, unspecified (10/12/22) Physical Therapy Treatment Note PT-OP-A Visit Information Start: 09/24/22 17:31 Freq: Status: Active Protocol: Document 10/12/22 09:49 SP (Rec: 10/12/22 10:37 SP [id number]) Out-Patient Physical Therapy Visit Information Visit Information Visit Type Treatment Note Visit Start Time 09:49 Visit Stop Time 10:30 Total Visit Minutes 41 Visit Number 6 Number of CENTRAL COMMUNICATIONS SPECIALIST Visits 2 Evaluation Information Evaluation Date 09/24/22 PT-OP-B Current Condition Start: 09/24/22 17:31 Freq: Status: Active Protocol: Document 09/24/22 09:50 DCW (Rec: 09/24/22 17:53 DCW [id number]) Current Condition History of Current Condition Onset Date Six year history Current Complaints Low back pain, right hip pain, right knee pain History of Current Condition Pt is a 72 year old male presenting with a six year history of complex low back and right leg pain. Pt notes that pain largely began six years ago, when he tore his Achilles tendon while playing Pickleball. Reports he underwent a surgical repair that failed, and he was then unwilling to get any further surgery. Since that time, he has had a right medial meniscus tear, significant worsening of right hip pain, as well as a long-standing history of low back pain. 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 Pt has recently moved to the area from [place], where he had been participating in PT, which he notes was helpful . Admits, however, that in the five months since he moved, he has not really done anything at all. Feels working on flexibility and strength was helpful in the past. Treatment Goals Patient/Caregiver Goals Return to riding his bike, would also like to try playing pickleball again PT-OP-C Subjective Start: 09/24/22 17:31 Freq: Status: Active Protocol: Document 10/12/22 09:49 SP (Rec: 10/12/22 10:37 SP [id number]) OP-PT Subjective Patient Comments Patient Comments Pt reports back stiff wants get more flexibility. L knee feeling better. PT-OP-F Manual Assessment Start: 09/24/22 17:31 Freq: Status: Active Protocol: Document 09/24/22 09:50 DCW (Rec: 09/24/22 17:53 DCW [id number]) Manual Assessments Soft Tissue Assessment Soft Tissue Mobility Assessment Moderate-severe tone right piriformis, TFL/ITB, hamstrings Joint Mobility Assessment Joint Mobility Assessment Limitations in passive hip mobility into flexion or adduction, hard end feel PT-OP-K Range of Motion Start: 09/24/22 17:31 Freq: Status: Active Protocol: Document 09/24/22 09:50 DCW (Rec: 09/25/22 10:35 DCW [id number]) Hip Goniometric Range of Motion Hip Right Passive Hip ROM WFL No Testing Position Supine Flexion w/Knee Flexed 96 Straight Leg Raise 55 Comments Horizontal adduction unable to cross midline, hard end-feel PT-OP-L Special Tests Start: 09/24/22 17:31 Freq: Status: Active Protocol: Document 09/24/22 09:50 DCW (Rec: 09/25/22 10:35 DCW [id number]) Special Tests Lumbar Spine Special Tests Straight Leg Raise Test Results Hamstring tightness, limited 55? on R Manual Traction Test Results Negative A-P Shearing Test Results Negative PT-OP-M Strength Start: 09/24/22 17:31 Freq: Status: Active Protocol: Document 09/24/22 09:50 DCW (Rec: 09/25/22 10:35 DCW [id number]) Hip Strength Hip Manual Muscle Testing Right Flexion (L2) 3+ Fair+ Abduction 3+ Fair+ Adduction 3+ Fair+ Left Flexion (L2) 4 Good Abduction 4- Good- Adduction 4- Good- Knee Strength Knee Manual Muscle Testing Right Flexion (S2) 4+ Good+ Extension (L3) 4+ Good+ Left Flexion (S2) 4+ Good+ Extension (L3) 4+ Good+ Ankle/Foot Strength Ankle and Foot Manual Muscle Testing Right Dorsiflexion (L4) 4+ Good+ Plantarflexion (S1) 2+ Poor+ Left Dorsiflexion (L4) 4+ Good+ Plantarflexion (S1) 4+ Good+ PT-OP-Q Treatments Start: 09/24/22 17:31 Freq: Status: Active Protocol: Document 10/12/22 09:49 SP (Rec: 10/12/22 10:37 SP [id number]) Therapeutic Exercises Supine Exercises piriformis stretch Side bilateral Reps/Minutes 30 x2 each LE Comments limited range Psoas stretch Supine Exercise Name Off table stretch- added toHEP Side bilateral Reps/Minutes 60 Comments cued awareness neutral pelvic Sitting Exercises trunk/lumbar flexion Sitting Exercise Name forward and off to side: ES and QL Reps/Minutes 30 x2 Comments good feedback response stretch , limited range Standing Exercises resisted stepping Standing Exercise Name lateral Side bilateral Resistance GTB Reps/Minutes 20 ft x2 lap Comments good feedback lateral thigh effort tiring- stated may be sore later. Manual Therapy Treatment Soft Tissue Mobilization anterior hip Body Location R>L TFL, prox rect femoris Mobilization Type Strumming,Sustained Pressure Intensity/Depth Moderate Body Position Hooklying Comments manual states uses massage gun at home but looking for a MT to see for self care. ES, paraspinal Body Location R>L Mobilization Type Strumming,Sustained Pressure Intensity/Depth Moderate Body Position Prone Comments manual, ed use ball wall or self massage at home Piriformis Body Location R>L Piriformis, glut max Mobilization Type Sustained Pressure,Trigger Point Release Intensity/Depth Moderate Body Position Sidelying Comments manual sustained pressure with /without small range hip ER FM PT-OP-T Assessment and Plan Start: 09/24/22 17:31 Freq: Status: Active Protocol: Document 10/12/22 09:49 SP (Rec: 10/12/22 10:37 SP [id number]) Physical Therapy Assessment Goals Three Impairment Pt unable to perform heel raise on right foot due to calf atrophy Care Home Goal (LTG) Pt to increase MMT of right plantar flexion to at least 3+ /5, demonstrating ability to perform heel raise on single leg, in order to help push-off during gait. LTG Duration 12/23/22 Two Impairment Pt unable to perform preffered outdoor activities, like bike riding Heat Set Operator Goal (LTG) Pt to safely return to road bike riding without pain in his hip or knee LTG Duration 12/23/22 One Impairment Pt does not have an appropriate home exercise program Short Term Goal (STG) Pt to be independent and compliant with an appropriate HEP STG Duration 10/22/22 Assessment Summary Assessment Pt reponded well to manual, stated limited stretching range and doesn't last long. He states compliant with stretching HEP, unsure really helping. Good muscle effort during band walk. Trying to find MT in area to help compliment what doing in PT. Physical Therapy Plan Frequency and Duration Frequency of Treatment 1-2x/week Plan of Care Start Date 09/24/22 Plan of Care End Date 12/23/22 Therapeutic Interventions Therapeutic Interventions Balance Training,Gait Training ,Home Exercise Program,Joint Mobilizations,Manual Therapy, Neuromuscular Re-education, Patient/Caregiver Education, Self-Care/Home Management,Soft Tissue Mobilization, Therapeutic Activities, Therapeutic Exercises Next Visit Focus/Plan Next Note Type Treatment Note Next Visit Plan Recheck: TKE, resisted supine clam, response to resisted lateral stepping last tx. POC: LE strengthening, joint mobs, STM, balance training
--- NOTE | 2022-10-15 11:17 | PT.OTN ---
Current Diagnoses Type 2 diabetes mellitus without complications (10/15/22) Polyneuropathy, unspecified (10/15/22) Other chronic pain (10/15/22) Pain in right hip (10/15/22) Pain in right knee (10/15/22) Pain in unspecified knee (10/15/22) Stiffness of right hip, not elsewhere classified (10/15/22) Stiffness of right knee, not elsewhere classified (10/15/22) Low back pain, unspecified (10/15/22) Physical Therapy Treatment Note PT-OP-A Visit Information Start: 09/24/22 17:31 Freq: Status: Active Protocol: Document 10/15/22 10:32 DCW (Rec: 10/15/22 11:17 DCW [id number]) Out-Patient Physical Therapy Visit Information Visit Information Visit Type Treatment Note Visit Start Time 10:32 Visit Stop Time 11:15 Total Visit Minutes 43 Visit Number 7 Number of EARLY CHILDHOOD SPECIAL EDUCATOR Visits 0 Evaluation Information Evaluation Date 09/24/22 PT-OP-B Current Condition Start: 09/24/22 17:31 Freq: Status: Active Protocol: Document 09/24/22 09:50 DCW (Rec: 09/24/22 17:53 DCW [id number]) Current Condition History of Current Condition Onset Date Six year history Current Complaints Low back pain, right hip pain, right knee pain History of Current Condition Pt is a 72 year old male presenting with a six year history of complex low back and right leg pain. Pt notes that pain largely began six years ago, when he tore his Achilles tendon while playing Pickleball. Reports he underwent a surgical repair that failed, and he was then unwilling to get any further surgery. Since that time, he has had a right medial meniscus tear, significant worsening of right hip pain, as well as a long-standing history of low back pain. 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 Pt has recently moved to the area from [place], where he had been participating in PT, which he notes was helpful . Admits, however, that in the five months since he moved, he has not really done anything at all. Feels working on flexibility and strength was helpful in the past. Treatment Goals Patient/Caregiver Goals Return to riding his bike, would also like to try playing pickleball again PT-OP-C Subjective Start: 09/24/22 17:31 Freq: Status: Active Protocol: Document 10/15/22 10:32 DCW (Rec: 10/15/22 11:17 DCW [id number]) OP-PT Subjective Patient Comments Patient Comments Just the normal soreness and achiness. Reports mostly in R SI/Hip area. PT-OP-F Manual Assessment Start: 09/24/22 17:31 Freq: Status: Active Protocol: Document 09/24/22 09:50 DCW (Rec: 09/24/22 17:53 DCW [id number]) Manual Assessments Soft Tissue Assessment Soft Tissue Mobility Assessment Moderate-severe tone right piriformis, TFL/ITB, hamstrings Joint Mobility Assessment Joint Mobility Assessment Limitations in passive hip mobility into flexion or adduction, hard end feel PT-OP-K Range of Motion Start: 09/24/22 17:31 Freq: Status: Active Protocol: Document 09/24/22 09:50 DCW (Rec: 09/25/22 10:35 DCW [id number]) Hip Goniometric Range of Motion Hip Right Passive Hip ROM WFL No Testing Position Supine Flexion w/Knee Flexed 96 Straight Leg Raise 55 Comments Horizontal adduction unable to cross midline, hard end-feel PT-OP-L Special Tests Start: 09/24/22 17:31 Freq: Status: Active Protocol: Document 09/24/22 09:50 DCW (Rec: 09/25/22 10:35 DCW [id number]) Special Tests Lumbar Spine Special Tests Straight Leg Raise Test Results Hamstring tightness, limited 55? on R Manual Traction Test Results Negative A-P Shearing Test Results Negative PT-OP-M Strength Start: 09/24/22 17:31 Freq: Status: Active Protocol: Document 09/24/22 09:50 DCW (Rec: 09/25/22 10:35 DCW [id number]) Hip Strength Hip Manual Muscle Testing Right Flexion (L2) 3+ Fair+ Abduction 3+ Fair+ Adduction 3+ Fair+ Left Flexion (L2) 4 Good Abduction 4- Good- Adduction 4- Good- Knee Strength Knee Manual Muscle Testing Right Flexion (S2) 4+ Good+ Extension (L3) 4+ Good+ Left Flexion (S2) 4+ Good+ Extension (L3) 4+ Good+ Ankle/Foot Strength Ankle and Foot Manual Muscle Testing Right Dorsiflexion (L4) 4+ Good+ Plantarflexion (S1) 2+ Poor+ Left Dorsiflexion (L4) 4+ Good+ Plantarflexion (S1) 4+ Good+ PT-OP-Q Treatments Start: 09/24/22 17:31 Freq: Status: Active Protocol: Document 10/15/22 10:32 DCW (Rec: 10/15/22 11:17 DCW [id number]) Gym Equipment Therapeutic Ball Pelvic Tilts/Circles Exercise Details Pelvic tilts/circles Ball Size/Color Green - 65 cm Body Position Sitting Therapeutic Exercises Supine Exercises ITB stretch Supine Exercise Name ITB stretch Side right Reps/Minutes 60 w/ Strap Comments HEP Hamstring stretch Supine Exercise Name HS stretch- HEP reviewed Side right Equipment Used strap Reps/Minutes 30 Comments cue quad fac, knee extension Standing Exercises Hip Extension Standing Exercise Name Hip Extension Side bilateral Resistance Green resisted stepping Standing Exercise Name lateral Side bilateral Resistance GTB Reps/Minutes 10 ft x2 lap Other Exercises BOSU Stance Other Exercise Name DL, SL Comments Blue BOSU Step-ups Other Exercise Name Step-ups Side right Equipment Used 6 step Manual Therapy Treatment Soft Tissue Mobilization anterior hip Body Location R>L TFL, prox rect femoris Mobilization Type Strumming,Sustained Pressure Intensity/Depth Moderate Body Position Hooklying ITB Body Location R ITB Mobilization Type Instrument Assisted,Sustained Pressure,Trigger Point Release Intensity/Depth Moderate Body Position Sidelying Comments manual, use rolling pin- good feedback response Piriformis Body Location R Piriformis Mobilization Type Sustained Pressure,Trigger Point Release Intensity/Depth Moderate Body Position Sidelying Comments manual sustained pressure with /without small range hip ER FM PT-OP-T Assessment and Plan Start: 09/24/22 17:31 Freq: Status: Active Protocol: Document 10/15/22 10:32 DCW (Rec: 10/15/22 11:17 DCW [id number]) Physical Therapy Assessment Goals Three Impairment Pt unable to perform heel raise on right foot due to calf atrophy Highwall Drill Operator Goal (LTG) Pt to increase MMT of right plantar flexion to at least 3+ /5, demonstrating ability to perform heel raise on single leg, in order to help push-off during gait. LTG Duration 12/23/22 Two Impairment Pt unable to perform preffered outdoor activities, like bike riding Highwall Drill Operator Goal (LTG) Pt to safely return to road bike riding without pain in his hip or knee LTG Duration 12/23/22 One Impairment Pt does not have an appropriate home exercise program Short Term Goal (STG) Pt to be independent and compliant with an appropriate HEP STG Duration 10/22/22 Assessment Summary Assessment Pt admitted he was a little more sore after his session today, but in a good way, I can tell we're doing something . Continue to focus on hip and back mobility Physical Therapy Plan Frequency and Duration Frequency of Treatment 1-2x/week Plan of Care Start Date 09/24/22 Plan of Care End Date 12/23/22 Therapeutic Interventions Therapeutic Interventions Balance Training,Gait Training ,Home Exercise Program,Joint Mobilizations,Manual Therapy, Neuromuscular Re-education, Patient/Caregiver Education, Self-Care/Home Management,Soft Tissue Mobilization, Therapeutic Activities, Therapeutic Exercises Next Visit Focus/Plan Next Note Type Treatment Note Next Visit Plan Recheck: TKE, resisted supine clam, response to resisted lateral stepping last tx. POC: LE strengthening, joint mobs, STM, balance training
--- NOTE | 2022-10-19 10:29 | PT.OTN ---
Current Diagnoses Type 2 diabetes mellitus without complications (10/19/22) Polyneuropathy, unspecified (10/19/22) Other chronic pain (10/19/22) Pain in right hip (10/19/22) Pain in right knee (10/19/22) Pain in unspecified knee (10/19/22) Stiffness of right hip, not elsewhere classified (10/19/22) Stiffness of right knee, not elsewhere classified (10/19/22) Low back pain, unspecified (10/19/22) Physical Therapy Treatment Note PT-OP-A Visit Information Start: 09/24/22 17:31 Freq: Status: Active Protocol: Document 10/19/22 09:45 DCW (Rec: 10/19/22 10:29 DCW [id number]) Out-Patient Physical Therapy Visit Information Visit Information Visit Type Treatment Note Visit Start Time 09:45 Visit Stop Time 10:30 Total Visit Minutes 45 Visit Number 8 Number of 4TH GRADE TEACHER Visits 0 Evaluation Information Evaluation Date 09/24/22 PT-OP-B Current Condition Start: 09/24/22 17:31 Freq: Status: Active Protocol: Document 09/24/22 09:50 DCW (Rec: 09/24/22 17:53 DCW [id number]) Current Condition History of Current Condition Onset Date Six year history Current Complaints Low back pain, right hip pain, right knee pain History of Current Condition Pt is a 72 year old male presenting with a six year history of complex low back and right leg pain. Pt notes that pain largely began six years ago, when he tore his Achilles tendon while playing Pickleball. Reports he underwent a surgical repair that failed, and he was then unwilling to get any further surgery. Since that time, he has had a right medial meniscus tear, significant worsening of right hip pain, as well as a long-standing history of low back pain. 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 Pt has recently moved to the area from [place], where he had been participating in PT, which he notes was helpful . Admits, however, that in the five months since he moved, he has not really done anything at all. Feels working on flexibility and strength was helpful in the past. Treatment Goals Patient/Caregiver Goals Return to riding his bike, would also like to try playing pickleball again PT-OP-C Subjective Start: 09/24/22 17:31 Freq: Status: Active Protocol: Document 10/19/22 09:45 DCW (Rec: 10/19/22 10:29 DCW [id number]) OP-PT Subjective Patient Comments Patient Comments Pt not feeling any worse, scheduled for injection in hip 11/02/22. PT-OP-F Manual Assessment Start: 09/24/22 17:31 Freq: Status: Active Protocol: Document 09/24/22 09:50 DCW (Rec: 09/24/22 17:53 DCW [id number]) Manual Assessments Soft Tissue Assessment Soft Tissue Mobility Assessment Moderate-severe tone right piriformis, TFL/ITB, hamstrings Joint Mobility Assessment Joint Mobility Assessment Limitations in passive hip mobility into flexion or adduction, hard end feel PT-OP-K Range of Motion Start: 09/24/22 17:31 Freq: Status: Active Protocol: Document 09/24/22 09:50 DCW (Rec: 09/25/22 10:35 DCW [id number]) Hip Goniometric Range of Motion Hip Right Passive Hip ROM WFL No Testing Position Supine Flexion w/Knee Flexed 96 Straight Leg Raise 55 Comments Horizontal adduction unable to cross midline, hard end-feel PT-OP-L Special Tests Start: 09/24/22 17:31 Freq: Status: Active Protocol: Document 09/24/22 09:50 DCW (Rec: 09/25/22 10:35 DCW [id number]) Special Tests Lumbar Spine Special Tests Straight Leg Raise Test Results Hamstring tightness, limited 55? on R Manual Traction Test Results Negative A-P Shearing Test Results Negative PT-OP-M Strength Start: 09/24/22 17:31 Freq: Status: Active Protocol: Document 09/24/22 09:50 DCW (Rec: 09/25/22 10:35 DCW [id number]) Hip Strength Hip Manual Muscle Testing Right Flexion (L2) 3+ Fair+ Abduction 3+ Fair+ Adduction 3+ Fair+ Left Flexion (L2) 4 Good Abduction 4- Good- Adduction 4- Good- Knee Strength Knee Manual Muscle Testing Right Flexion (S2) 4+ Good+ Extension (L3) 4+ Good+ Left Flexion (S2) 4+ Good+ Extension (L3) 4+ Good+ Ankle/Foot Strength Ankle and Foot Manual Muscle Testing Right Dorsiflexion (L4) 4+ Good+ Plantarflexion (S1) 2+ Poor+ Left Dorsiflexion (L4) 4+ Good+ Plantarflexion (S1) 4+ Good+ PT-OP-Q Treatments Start: 09/24/22 17:31 Freq: Status: Active Protocol: Document 10/19/22 09:45 DCW (Rec: 10/19/22 10:29 DCW [id number]) Gym Equipment Therapeutic Ball Resisted Trunk Rotation Exercise Details Resisted Trunk Rotation Ball Size/Color Green - 65 cm Lv 3 T-band Body Position Sitting Pelvic Tilts/Circles Exercise Details Pelvic tilts/circles Ball Size/Color Green - 65 cm Body Position Sitting Therapeutic Exercises Supine Exercises Psoas stretch Supine Exercise Name Off table stretch Side bilateral Reps/Minutes 60 Comments cued awareness neutral pelvic ITB stretch Supine Exercise Name ITB stretch Side right Reps/Minutes 60 w/ Strap Comments HEP Hamstring stretch Supine Exercise Name HS stretch Side right Equipment Used strap Reps/Minutes 30 Comments cue quad fac, knee extension Standing Exercises Hip Extension Standing Exercise Name Hip Extension Side bilateral Resistance Green resisted stepping Standing Exercise Name lateral Side bilateral Resistance GTB Reps/Minutes 10 ft x2 lap Manual Therapy Treatment Soft Tissue Mobilization anterior hip Body Location R>L TFL, prox rect femoris Mobilization Type Strumming,Sustained Pressure Intensity/Depth Moderate Body Position Hooklying ITB Body Location R ITB Mobilization Type Instrument Assisted,Sustained Pressure,Trigger Point Release Intensity/Depth Moderate Body Position Sidelying Comments manual, use rolling pin- good feedback response Piriformis Body Location R Piriformis Mobilization Type Sustained Pressure,Trigger Point Release Intensity/Depth Moderate Body Position Sidelying Comments manual sustained pressure with /without small range hip ER FM PT-OP-T Assessment and Plan Start: 09/24/22 17:31 Freq: Status: Active Protocol: Document 10/19/22 09:45 DCW (Rec: 10/19/22 10:29 DCW [id number]) Physical Therapy Assessment Impairments Impairments Functional Activities, Functional Mobility,Gait,ROM, Soft Tissue Mobility,Strength, Tone Goals Three Impairment Pt unable to perform heel raise on right foot due to calf atrophy Racquet Maker Goal (LTG) Pt to increase MMT of right plantar flexion to at least 3+ /5, demonstrating ability to perform heel raise on single leg, in order to help push-off during gait. LTG Duration 12/23/22 Two Impairment Pt unable to perform preffered outdoor activities, like bike riding Intermediate Goal (LTG) Pt to safely return to road bike riding without pain in his hip or knee LTG Duration 12/23/22 One Impairment Pt does not have an appropriate home exercise program Short Term Goal (STG) Pt to be independent and compliant with an appropriate HEP STG Duration 10/22/22 Assessment Summary Assessment Pt felt like he is getting a good workout in his hips/low back. Good overall improvement with functional mobility. Physical Therapy Plan Frequency and Duration Frequency of Treatment 1-2x/week Plan of Care Start Date 09/24/22 Plan of Care End Date 12/23/22 Therapeutic Interventions Therapeutic Interventions Balance Training,Gait Training ,Home Exercise Program,Joint Mobilizations,Manual Therapy, Neuromuscular Re-education, Patient/Caregiver Education, Self-Care/Home Management,Soft Tissue Mobilization, Therapeutic Activities, Therapeutic Exercises Next Visit Focus/Plan Next Note Type Treatment Note Next Visit Plan Recheck: TKE, resisted supine clam, response to resisted lateral stepping last tx. POC: LE strengthening, joint mobs, STM, balance training
--- NOTE | 2022-10-29 15:15 | PT.OTN ---
Current Diagnoses Type 2 diabetes mellitus without complications (10/29/22) Polyneuropathy, unspecified (10/29/22) Other chronic pain (10/29/22) Pain in right hip (10/29/22) Pain in right knee (10/29/22) Pain in unspecified knee (10/29/22) Stiffness of right hip, not elsewhere classified (10/29/22) Stiffness of right knee, not elsewhere classified (10/29/22) Low back pain, unspecified (10/29/22) Physical Therapy Treatment Note PT-OP-A Visit Information Start: 09/24/22 17:31 Freq: Status: Active Protocol: Document 10/29/22 14:30 DCW (Rec: 10/29/22 15:15 DCW [id number]) Out-Patient Physical Therapy Visit Information Visit Information Visit Type Treatment Note Visit Start Time 14:30 Visit Stop Time 15:15 Total Visit Minutes 45 Visit Number 9 Number of WIND TUNNEL TECHNICIAN Visits 0 Evaluation Information Evaluation Date 09/24/22 PT-OP-B Current Condition Start: 09/24/22 17:31 Freq: Status: Active Protocol: Document 09/24/22 09:50 DCW (Rec: 09/24/22 17:53 DCW [id number]) Current Condition History of Current Condition Onset Date Six year history Current Complaints Low back pain, right hip pain, right knee pain History of Current Condition Pt is a 72 year old male presenting with a six year history of complex low back and right leg pain. Pt notes that pain largely began six years ago, when he tore his Achilles tendon while playing Pickleball. Reports he underwent a surgical repair that failed, and he was then unwilling to get any further surgery. Since that time, he has had a right medial meniscus tear, significant worsening of right hip pain, as well as a long-standing history of low back pain. 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 Pt has recently moved to the area from [place], where he had been participating in PT, which he notes was helpful . Admits, however, that in the five months since he moved, he has not really done anything at all. Feels working on flexibility and strength was helpful in the past. Treatment Goals Patient/Caregiver Goals Return to riding his bike, would also like to try playing pickleball again PT-OP-C Subjective Start: 09/24/22 17:31 Freq: Status: Active Protocol: Document 10/29/22 14:30 DCW (Rec: 10/29/22 15:15 DCW [id number]) OP-PT Subjective Patient Comments Patient Comments I went to accupuncture earlier today. I've been more active, so it's no wonder things are a little sore. PT-OP-F Manual Assessment Start: 09/24/22 17:31 Freq: Status: Active Protocol: Document 09/24/22 09:50 DCW (Rec: 09/24/22 17:53 DCW [id number]) Manual Assessments Soft Tissue Assessment Soft Tissue Mobility Assessment Moderate-severe tone right piriformis, TFL/ITB, hamstrings Joint Mobility Assessment Joint Mobility Assessment Limitations in passive hip mobility into flexion or adduction, hard end feel PT-OP-K Range of Motion Start: 09/24/22 17:31 Freq: Status: Active Protocol: Document 09/24/22 09:50 DCW (Rec: 09/25/22 10:35 DCW [id number]) Hip Goniometric Range of Motion Hip Right Passive Hip ROM WFL No Testing Position Supine Flexion w/Knee Flexed 96 Straight Leg Raise 55 Comments Horizontal adduction unable to cross midline, hard end-feel PT-OP-L Special Tests Start: 09/24/22 17:31 Freq: Status: Active Protocol: Document 09/24/22 09:50 DCW (Rec: 09/25/22 10:35 DCW [id number]) Special Tests Lumbar Spine Special Tests Straight Leg Raise Test Results Hamstring tightness, limited 55? on R Manual Traction Test Results Negative A-P Shearing Test Results Negative PT-OP-M Strength Start: 09/24/22 17:31 Freq: Status: Active Protocol: Document 09/24/22 09:50 DCW (Rec: 09/25/22 10:35 DCW [id number]) Hip Strength Hip Manual Muscle Testing Right Flexion (L2) 3+ Fair+ Abduction 3+ Fair+ Adduction 3+ Fair+ Left Flexion (L2) 4 Good Abduction 4- Good- Adduction 4- Good- Knee Strength Knee Manual Muscle Testing Right Flexion (S2) 4+ Good+ Extension (L3) 4+ Good+ Left Flexion (S2) 4+ Good+ Extension (L3) 4+ Good+ Ankle/Foot Strength Ankle and Foot Manual Muscle Testing Right Dorsiflexion (L4) 4+ Good+ Plantarflexion (S1) 2+ Poor+ Left Dorsiflexion (L4) 4+ Good+ Plantarflexion (S1) 4+ Good+ PT-OP-Q Treatments Start: 09/24/22 17:31 Freq: Status: Active Protocol: Document 10/29/22 14:30 DCW (Rec: 10/29/22 15:15 DCW [id number]) Therapeutic Exercises Supine Exercises ITB stretch Supine Exercise Name ITB stretch Side right Reps/Minutes 60 w/ Strap Comments HEP Hamstring stretch Supine Exercise Name HS stretch Side right Equipment Used strap Reps/Minutes 30 Comments cue quad fac, knee extension Standing Exercises Hip Extension Standing Exercise Name Hip Extension Side bilateral Resistance Green resisted stepping Standing Exercise Name lateral Side bilateral Resistance Green Reps/Minutes 10 ft x2 lap Other Exercises BOSU Stance Other Exercise Name D, step-ups Comments Blue BOSU Manual Therapy Treatment Soft Tissue Mobilization anterior hip Body Location R>L TFL, prox rect femoris Mobilization Type Strumming,Sustained Pressure Intensity/Depth Moderate Body Position Hooklying ITB Body Location R ITB Mobilization Type Instrument Assisted,Sustained Pressure,Trigger Point Release Intensity/Depth Moderate Body Position Sidelying Comments manual, use rolling pin- good feedback response Piriformis Body Location R Piriformis Mobilization Type Sustained Pressure,Trigger Point Release Intensity/Depth Moderate Body Position Sidelying Comments manual sustained pressure with /without small range hip ER FM PT-OP-T Assessment and Plan Start: 09/24/22 17:31 Freq: Status: Active Protocol: Document 10/29/22 14:30 DCW (Rec: 10/29/22 15:15 DCW [id number]) Physical Therapy Assessment Impairments Impairments Functional Activities, Functional Mobility,Gait,ROM, Soft Tissue Mobility,Strength, Tone Goals Three Impairment Pt unable to perform heel raise on right foot due to calf atrophy Monotype Caster Goal (LTG) Pt to increase MMT of right plantar flexion to at least 3+ /5, demonstrating ability to perform heel raise on single leg, in order to help push-off during gait. LTG Duration 12/23/22 Two Impairment Pt unable to perform preffered outdoor activities, like bike riding Monotype Caster Goal (LTG) Pt to safely return to road bike riding without pain in his hip or knee LTG Duration 12/23/22 One Impairment Pt does not have an appropriate home exercise program Short Term Goal (STG) Pt to be independent and compliant with an appropriate HEP STG Duration 10/22/22 Assessment Summary Assessment Pt tolerated well, a little hesitant regarding his hip injection later this week, pt is unsure if it is going to help much. Doing well with recent purchase of ebike to help with independent activity levels. Physical Therapy Plan Frequency and Duration Frequency of Treatment 1-2x/week Plan of Care Start Date 09/24/22 Plan of Care End Date 12/23/22 Therapeutic Interventions Therapeutic Interventions Balance Training,Gait Training ,Home Exercise Program,Joint Mobilizations,Manual Therapy, Neuromuscular Re-education, Patient/Caregiver Education, Self-Care/Home Management,Soft Tissue Mobilization, Therapeutic Activities, Therapeutic Exercises Next Visit Focus/Plan Next Note Type Treatment Note Next Visit Plan Recheck: TKE, resisted supine clam, response to resisted lateral stepping last tx. POC: LE strengthening, joint mobs, STM, balance training
--- NOTE | 2022-11-01 10:30 | PT.OTN ---
Current Diagnoses Type 2 diabetes mellitus without complications (11/01/22) Polyneuropathy, unspecified (11/01/22) Other chronic pain (11/01/22) Pain in right hip (11/01/22) Pain in right knee (11/01/22) Pain in unspecified knee (11/01/22) Stiffness of right hip, not elsewhere classified (11/01/22) Stiffness of right knee, not elsewhere classified (11/01/22) Low back pain, unspecified (11/01/22) Physical Therapy Treatment Note PT-OP-A Visit Information Start: 09/24/22 17:31 Freq: Status: Active Protocol: Document 11/01/22 09:51 SP (Rec: 11/01/22 10:34 SP [id number]) Out-Patient Physical Therapy Visit Information Visit Information Visit Type Treatment Note Visit Start Time 09:51 Visit Stop Time 10:30 Total Visit Minutes 39 Visit Number 10 Number of PLANT PROTECTION OFFICER Visits 1 Evaluation Information Evaluation Date 09/24/22 PT-OP-B Current Condition Start: 09/24/22 17:31 Freq: Status: Active Protocol: Document 09/24/22 09:50 DCW (Rec: 09/24/22 17:53 DCW [id number]) Current Condition History of Current Condition Onset Date Six year history Current Complaints Low back pain, right hip pain, right knee pain History of Current Condition Pt is a 72 year old male presenting with a six year history of complex low back and right leg pain. Pt notes that pain largely began six years ago, when he tore his Achilles tendon while playing Pickleball. Reports he underwent a surgical repair that failed, and he was then unwilling to get any further surgery. Since that time, he has had a right medial meniscus tear, significant worsening of right hip pain, as well as a long-standing history of low back pain. 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 Pt has recently moved to the area from [place], where he had been participating in PT, which he notes was helpful . Admits, however, that in the five months since he moved, he has not really done anything at all. Feels working on flexibility and strength was helpful in the past. Treatment Goals Patient/Caregiver Goals Return to riding his bike, would also like to try playing pickleball again PT-OP-C Subjective Start: 09/24/22 17:31 Freq: Status: Active Protocol: Document 11/01/22 09:51 SP (Rec: 11/01/22 10:34 SP [id number]) OP-PT Subjective Patient Comments Patient Comments Pt reports went on his 1st 25 miles bike ride with friends and achy soreness over B more medial than lateral knees more than back, tried to be aware of R hip/knee/ankle alignment compensations to decrease medial knee stress and R heel hitting bike when peddling. Did some stretching for back. He stated add ointment, voltarian to help recover. Stated didn't stretch/massage yet. He stated is going to do some running soon. PT-OP-F Manual Assessment Start: 09/24/22 17:31 Freq: Status: Active Protocol: Document 09/24/22 09:50 DCW (Rec: 09/24/22 17:53 DCW [id number]) Manual Assessments Soft Tissue Assessment Soft Tissue Mobility Assessment Moderate-severe tone right piriformis, TFL/ITB, hamstrings Joint Mobility Assessment Joint Mobility Assessment Limitations in passive hip mobility into flexion or adduction, hard end feel PT-OP-K Range of Motion Start: 09/24/22 17:31 Freq: Status: Active Protocol: Document 09/24/22 09:50 DCW (Rec: 09/25/22 10:35 DCW [id number]) Hip Goniometric Range of Motion Hip Right Passive Hip ROM WFL No Testing Position Supine Flexion w/Knee Flexed 96 Straight Leg Raise 55 Comments Horizontal adduction unable to cross midline, hard end-feel PT-OP-L Special Tests Start: 09/24/22 17:31 Freq: Status: Active Protocol: Document 09/24/22 09:50 DCW (Rec: 09/25/22 10:35 DCW [id number]) Special Tests Lumbar Spine Special Tests Straight Leg Raise Test Results Hamstring tightness, limited 55? on R Manual Traction Test Results Negative A-P Shearing Test Results Negative PT-OP-M Strength Start: 09/24/22 17:31 Freq: Status: Active Protocol: Document 09/24/22 09:50 DCW (Rec: 09/25/22 10:35 DCW [id number]) Hip Strength Hip Manual Muscle Testing Right Flexion (L2) 3+ Fair+ Abduction 3+ Fair+ Adduction 3+ Fair+ Left Flexion (L2) 4 Good Abduction 4- Good- Adduction 4- Good- Knee Strength Knee Manual Muscle Testing Right Flexion (S2) 4+ Good+ Extension (L3) 4+ Good+ Left Flexion (S2) 4+ Good+ Extension (L3) 4+ Good+ Ankle/Foot Strength Ankle and Foot Manual Muscle Testing Right Dorsiflexion (L4) 4+ Good+ Plantarflexion (S1) 2+ Poor+ Left Dorsiflexion (L4) 4+ Good+ Plantarflexion (S1) 4+ Good+ PT-OP-Q Treatments Start: 09/24/22 17:31 Freq: Status: Active Protocol: Document 11/01/22 09:51 SP (Rec: 11/01/22 10:34 SP [id number]) Therapeutic Exercises Sitting Exercises Piriformis stretch Sitting Exercise Name Seated figure-4 Side right Resistance R>L Reps/Minutes 30 x2 Comments ed for incorporating 3xdaily to allow increase AROM to less achiness Standing Exercises Hip Extension Standing Exercise Name Hip Extension Side bilateral Resistance Green TB- around thighs Reps/Minutes 2x10 Comments better response, no knee irritation resisted stepping Standing Exercise Name lateral Side bilateral Resistance Green TB- thighs Equipment Used better response, no knee irritation Reps/Minutes 10 ft x2 lap Comments cued head up/ CS neutral, PPT/ TA Manual Therapy Treatment Soft Tissue Mobilization anterior hip Body Location R>L distal rect femoris/ superior patella Mobilization Type Strumming,Sustained Pressure Intensity/Depth Moderate Body Position Hooklying ES, paraspinal Body Location R>L L5/S1 Mobilization Type Strumming,Sustained Pressure Intensity/Depth Moderate Body Position Prone Comments manual, ed use ball wall or self massage at home ITB Body Location R ITB Mobilization Type Instrument Assisted,Sustained Pressure,Trigger Point Release Intensity/Depth Moderate Body Position Sidelying Comments manual, use rolling pin- good feedback response Piriformis Body Location R Piriformis Mobilization Type Sustained Pressure,Trigger Point Release Intensity/Depth Moderate Body Position Sidelying Comments manual sustained pressure with /without small range hip ER FM , limited IR but improved little more range. PT-OP-T Assessment and Plan Start: 09/24/22 17:31 Freq: Status: Active Protocol: Document 11/01/22 09:51 SP (Rec: 11/01/22 10:34 SP [id number]) Physical Therapy Assessment Goals Three Impairment Pt unable to perform heel raise on right foot due to calf atrophy [facility] Goal (LTG) Pt to increase MMT of right plantar flexion to at least 3+ /5, demonstrating ability to perform heel raise on single leg, in order to help push-off during gait. LTG Duration 12/23/22 Two Impairment Pt unable to perform preffered outdoor activities, like bike riding Engineering Consultant Goal (LTG) Pt to safely return to road bike riding without pain in his hip or knee LTG Duration 12/23/22 One Impairment Pt does not have an appropriate home exercise program Short Term Goal (STG) Pt to be independent and compliant with an appropriate HEP STG Duration 10/22/22 Assessment Summary Assessment Pt improved decrease back, R medial knee and R hip discomfort post manual and seated stretching. No pain today with resisted (TB around thighs) standing lateral stepping/LE ext. Pt more mindful of foot/thigh alignment to lessen ITB/ lateral knee compensations giving stres to medial R knee. Ed for continued stretching, self massage and strengthening with awareness of new past activities and may need to slow progress into to allow for recovery. Good feedback response to tx. Physical Therapy Plan Frequency and Duration Frequency of Treatment 1-2x/week Plan of Care Start Date 09/24/22 Plan of Care End Date 12/23/22 Therapeutic Interventions Therapeutic Interventions Balance Training,Gait Training ,Home Exercise Program,Joint Mobilizations,Manual Therapy, Neuromuscular Re-education, Patient/Caregiver Education, Self-Care/Home Management,Soft Tissue Mobilization, Therapeutic Activities, Therapeutic Exercises Next Visit Focus/Plan Next Note Type Treatment Note Next Visit Plan Recheck: TKE, resisted supine clam, response to resisted lateral stepping last tx. POC: LE strengthening, joint mobs, STM, balance training
--- NOTE | 2022-11-08 11:25 | PT.OTN ---
Current Diagnoses Type 2 diabetes mellitus without complications (11/08/22) Polyneuropathy, unspecified (11/08/22) Other chronic pain (11/08/22) Pain in right hip (11/08/22) Pain in right knee (11/08/22) Pain in unspecified knee (11/08/22) Stiffness of right hip, not elsewhere classified (11/08/22) Stiffness of right knee, not elsewhere classified (11/08/22) Low back pain, unspecified (11/08/22) Physical Therapy Treatment Note PT-OP-A Visit Information Start: 09/24/22 17:31 Freq: Status: Active Protocol: Document 11/08/22 10:32 SP (Rec: 11/08/22 11:54 SP [id number]) Out-Patient Physical Therapy Visit Information Visit Information Visit Type Treatment Note Visit Start Time 10:32 Visit Stop Time 11:25 Total Visit Minutes 53 Visit Number 11 Number of FLUOROSCOPE OPERATOR Visits 2 Evaluation Information Evaluation Date 09/24/22 PT-OP-B Current Condition Start: 09/24/22 17:31 Freq: Status: Active Protocol: Document 09/24/22 09:50 DCW (Rec: 09/24/22 17:53 DCW [id number]) Current Condition History of Current Condition Onset Date Six year history Current Complaints Low back pain, right hip pain, right knee pain History of Current Condition Pt is a 72 year old male presenting with a six year history of complex low back and right leg pain. Pt notes that pain largely began six years ago, when he tore his Achilles tendon while playing Pickleball. Reports he underwent a surgical repair that failed, and he was then unwilling to get any further surgery. Since that time, he has had a right medial meniscus tear, significant worsening of right hip pain, as well as a long-standing history of low back pain. 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 Pt has recently moved to the area from [place], where he had been participating in PT, which he notes was helpful . Admits, however, that in the five months since he moved, he has not really done anything at all. Feels working on flexibility and strength was helpful in the past. Treatment Goals Patient/Caregiver Goals Return to riding his bike, would also like to try playing pickleball again PT-OP-C Subjective Start: 09/24/22 17:31 Freq: Status: Active Protocol: Document 11/08/22 10:32 SP (Rec: 11/08/22 11:54 SP [id number]) OP-PT Subjective Patient Comments Patient Comments Pt reports has been hiking around, bike ride, stretching, HEP. Got an injection in R hip after last tx, maybe little better. R>L LB notice worse lately. PT-OP-F Manual Assessment Start: 09/24/22 17:31 Freq: Status: Active Protocol: Document 09/24/22 09:50 DCW (Rec: 09/24/22 17:53 DCW [id number]) Manual Assessments Soft Tissue Assessment Soft Tissue Mobility Assessment Moderate-severe tone right piriformis, TFL/ITB, hamstrings Joint Mobility Assessment Joint Mobility Assessment Limitations in passive hip mobility into flexion or adduction, hard end feel PT-OP-K Range of Motion Start: 09/24/22 17:31 Freq: Status: Active Protocol: Document 09/24/22 09:50 DCW (Rec: 09/25/22 10:35 DCW [id number]) Hip Goniometric Range of Motion Hip Right Passive Hip ROM WFL No Testing Position Supine Flexion w/Knee Flexed 96 Straight Leg Raise 55 Comments Horizontal adduction unable to cross midline, hard end-feel PT-OP-L Special Tests Start: 09/24/22 17:31 Freq: Status: Active Protocol: Document 09/24/22 09:50 DCW (Rec: 09/25/22 10:35 DCW [id number]) Special Tests Lumbar Spine Special Tests Straight Leg Raise Test Results Hamstring tightness, limited 55? on R Manual Traction Test Results Negative A-P Shearing Test Results Negative PT-OP-M Strength Start: 09/24/22 17:31 Freq: Status: Active Protocol: Document 09/24/22 09:50 DCW (Rec: 09/25/22 10:35 DCW [id number]) Hip Strength Hip Manual Muscle Testing Right Flexion (L2) 3+ Fair+ Abduction 3+ Fair+ Adduction 3+ Fair+ Left Flexion (L2) 4 Good Abduction 4- Good- Adduction 4- Good- Knee Strength Knee Manual Muscle Testing Right Flexion (S2) 4+ Good+ Extension (L3) 4+ Good+ Left Flexion (S2) 4+ Good+ Extension (L3) 4+ Good+ Ankle/Foot Strength Ankle and Foot Manual Muscle Testing Right Dorsiflexion (L4) 4+ Good+ Plantarflexion (S1) 2+ Poor+ Left Dorsiflexion (L4) 4+ Good+ Plantarflexion (S1) 4+ Good+ PT-OP-Q Treatments Start: 09/24/22 17:31 Freq: Status: Active Protocol: Document 11/08/22 10:32 SP (Rec: 11/08/22 11:54 SP [id number]) Therapeutic Exercises Supine Exercises piriformis stretch Supine Exercise Name piriformis> fig 4 stretch Side bilateral Reps/Minutes 10 sec before c/o R groin pain Comments PF stretch groin pain, fig 4 SI back pain - stopped no benefit felt Standing Exercises SLS star reaches Standing Exercise Name initiated in PT Side right Resistance RLE SLS time,LLE reach outside SAM Equipment Used contact counter stability Reps/Minutes 2 min Comments max cues ankle, R knee with behond toes, level/fwd pelvis for add/core/abd resisted stepping Standing Exercise Name lateral- going at home no pain reports- not demo during tx Side bilateral Resistance Green TB- thighs Equipment Used better response, no knee irritation Reps/Minutes 10 ft x2 lap Comments cued head up/ CS neutral, PPT/ TA Manual Therapy Treatment Soft Tissue Mobilization anterior hip Body Location R TFL distal rect femoris/ superior patella Mobilization Type Strumming,Sustained Pressure Intensity/Depth Moderate Body Position Hooklying ES, paraspinal Body Location R L5/S1 Mobilization Type Strumming,Sustained Pressure Intensity/Depth Moderate Body Position Prone Comments manual, knows to use ball wall or self massage at home ITB Body Location R ITB Mobilization Type Instrument Assisted,Sustained Pressure,Trigger Point Release Intensity/Depth Moderate Body Position Sidelying Comments manual strumming,, uses rolling pin at home- good feedback response Piriformis Body Location R Piriformis Mobilization Type Sustained Pressure,Trigger Point Release Intensity/Depth Moderate Body Position Sidelying Comments manual sustained pressure with /without small range hip ER FM Manual Techniques self MWM Comments tennis ball under R piriformis , near R SI, R hip PNF flossing No response if helps but used to do in past, forgot since moved here. Self-Care/Home Management Treatment Activities Self-Care/Home Management Activities Extensive time ed importance for selfcare: stretching, strengthening, documentation of activities in PT and outside for progress making. Pain so signficant improvement post manual, ther ex, agreeable to IFC and CP end tx with good results, less pain upon wB standing/walking end tx. PT-OP-T Assessment and Plan Start: 09/24/22 17:31 Freq: Status: Active Protocol: Document 11/08/22 10:32 SP (Rec: 11/08/22 11:54 SP [id number]) Physical Therapy Assessment Goals Three Impairment Pt unable to perform heel raise on right foot due to calf atrophy [facility] Goal (LTG) Pt to increase MMT of right plantar flexion to at least 3+ /5, demonstrating ability to perform heel raise on single leg, in order to help push-off during gait. LTG Duration 12/23/22 Two Impairment Pt unable to perform preffered outdoor activities, like bike riding [facility] Goal (LTG) Pt to safely return to road bike riding without pain in his hip or knee 11/08/22: still some stress on R hip and knee when riding bike but started, always constant 6-7/10 andR LB 8/10. States R knee flares. LTG Duration 12/23/22 progress 11/08/22 One Impairment Pt does not have an appropriate home exercise program Short Term Goal (STG) Pt to be independent and compliant with an appropriate HEP 11/08/22: stretching, rowing maching stretch LB. STG Duration 10/22/22 progressing 11/08/22 Assessment Summary Assessment Pt reported improvement in R SI pain mostly post modalities and potentially manual. He states doesn't feel alot change in increased ROM and pain gets in R hip/SI/back regardless of HEP. Improved understanding knee/ankle /hip alignment during SLS star reach. Physical Therapy Plan Frequency and Duration Frequency of Treatment 1-2x/week Plan of Care Start Date 09/24/22 Plan of Care End Date 12/23/22 Therapeutic Interventions Therapeutic Interventions Balance Training,Gait Training ,Home Exercise Program,Joint Mobilizations,Manual Therapy, Neuromuscular Re-education, Patient/Caregiver Education, Self-Care/Home Management,Soft Tissue Mobilization, Therapeutic Activities, Therapeutic Exercises Next Visit Focus/Plan Next Note Type Treatment Note Next Visit Plan Recheck HEP, MMT for goal feedback. Manual needed and self. TKE, resisted supine clam, response to resisted lateral stepping last tx. POC: LE strengthening, joint mobs, STM, balance training
--- NOTE | 2022-11-08 11:25 | PT.OTN ---
Current Diagnoses Type 2 diabetes mellitus without complications (11/08/22) Polyneuropathy, unspecified (11/08/22) Other chronic pain (11/08/22) Pain in right hip (11/08/22) Pain in right knee (11/08/22) Pain in unspecified knee (11/08/22) Stiffness of right hip, not elsewhere classified (11/08/22) Stiffness of right knee, not elsewhere classified (11/08/22) Low back pain, unspecified (11/08/22) Physical Therapy Treatment Note PT-OP-A Visit Information Start: 09/24/22 17:31 Freq: Status: Active Protocol: Document 11/08/22 10:32 SP (Rec: 11/08/22 11:54 SP [id number]) Out-Patient Physical Therapy Visit Information Visit Information Visit Type Treatment Note Visit Start Time 10:32 Visit Stop Time 11:25 Total Visit Minutes 53 Visit Number 11 Number of VALUE ANALYSIS COORDINATOR Visits 2 Evaluation Information Evaluation Date 09/24/22 PT-OP-B Current Condition Start: 09/24/22 17:31 Freq: Status: Active Protocol: Document 09/24/22 09:50 DCW (Rec: 09/24/22 17:53 DCW [id number]) Current Condition History of Current Condition Onset Date Six year history Current Complaints Low back pain, right hip pain, right knee pain History of Current Condition Pt is a 72 year old male presenting with a six year history of complex low back and right leg pain. Pt notes that pain largely began six years ago, when he tore his Achilles tendon while playing Pickleball. Reports he underwent a surgical repair that failed, and he was then unwilling to get any further surgery. Since that time, he has had a right medial meniscus tear, significant worsening of right hip pain, as well as a long-standing history of low back pain. 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 Pt has recently moved to the area from [place], where he had been participating in PT, which he notes was helpful . Admits, however, that in the five months since he moved, he has not really done anything at all. Feels working on flexibility and strength was helpful in the past. Treatment Goals Patient/Caregiver Goals Return to riding his bike, would also like to try playing pickleball again PT-OP-C Subjective Start: 09/24/22 17:31 Freq: Status: Active Protocol: Document 11/08/22 10:32 SP (Rec: 11/08/22 11:54 SP [id number]) OP-PT Subjective Patient Comments Patient Comments Pt reports has been hiking around, bike ride, stretching, HEP. Got an injection in R hip after last tx, maybe little better. R>L LB notice worse lately. PT-OP-F Manual Assessment Start: 09/24/22 17:31 Freq: Status: Active Protocol: Document 09/24/22 09:50 DCW (Rec: 09/24/22 17:53 DCW [id number]) Manual Assessments Soft Tissue Assessment Soft Tissue Mobility Assessment Moderate-severe tone right piriformis, TFL/ITB, hamstrings Joint Mobility Assessment Joint Mobility Assessment Limitations in passive hip mobility into flexion or adduction, hard end feel PT-OP-K Range of Motion Start: 09/24/22 17:31 Freq: Status: Active Protocol: Document 09/24/22 09:50 DCW (Rec: 09/25/22 10:35 DCW [id number]) Hip Goniometric Range of Motion Hip Right Passive Hip ROM WFL No Testing Position Supine Flexion w/Knee Flexed 96 Straight Leg Raise 55 Comments Horizontal adduction unable to cross midline, hard end-feel PT-OP-L Special Tests Start: 09/24/22 17:31 Freq: Status: Active Protocol: Document 09/24/22 09:50 DCW (Rec: 09/25/22 10:35 DCW [id number]) Special Tests Lumbar Spine Special Tests Straight Leg Raise Test Results Hamstring tightness, limited 55? on R Manual Traction Test Results Negative A-P Shearing Test Results Negative PT-OP-M Strength Start: 09/24/22 17:31 Freq: Status: Active Protocol: Document 09/24/22 09:50 DCW (Rec: 09/25/22 10:35 DCW [id number]) Hip Strength Hip Manual Muscle Testing Right Flexion (L2) 3+ Fair+ Abduction 3+ Fair+ Adduction 3+ Fair+ Left Flexion (L2) 4 Good Abduction 4- Good- Adduction 4- Good- Knee Strength Knee Manual Muscle Testing Right Flexion (S2) 4+ Good+ Extension (L3) 4+ Good+ Left Flexion (S2) 4+ Good+ Extension (L3) 4+ Good+ Ankle/Foot Strength Ankle and Foot Manual Muscle Testing Right Dorsiflexion (L4) 4+ Good+ Plantarflexion (S1) 2+ Poor+ Left Dorsiflexion (L4) 4+ Good+ Plantarflexion (S1) 4+ Good+ PT-OP-Q Treatments Start: 09/24/22 17:31 Freq: Status: Active Protocol: Document 11/08/22 10:32 SP (Rec: 11/08/22 11:54 SP [id number]) Therapeutic Exercises Supine Exercises piriformis stretch Supine Exercise Name piriformis> fig 4 stretch Side bilateral Reps/Minutes 10 sec before c/o R groin pain Comments PF stretch groin pain, fig 4 SI back pain - stopped no benefit felt Standing Exercises SLS star reaches Standing Exercise Name initiated in PT Side right Resistance RLE SLS time,LLE reach outside SAM Equipment Used contact counter stability Reps/Minutes 2 min Comments max cues ankle, R knee with behond toes, level/fwd pelvis for add/core/abd resisted stepping Standing Exercise Name lateral- going at home no pain reports- not demo during tx Side bilateral Resistance Green TB- thighs Equipment Used better response, no knee irritation Reps/Minutes 10 ft x2 lap Comments cued head up/ CS neutral, PPT/ TA Manual Therapy Treatment Soft Tissue Mobilization anterior hip Body Location R TFL distal rect femoris/ superior patella Mobilization Type Strumming,Sustained Pressure Intensity/Depth Moderate Body Position Hooklying ES, paraspinal Body Location R L5/S1 Mobilization Type Strumming,Sustained Pressure Intensity/Depth Moderate Body Position Prone Comments manual, knows to use ball wall or self massage at home ITB Body Location R ITB Mobilization Type Instrument Assisted,Sustained Pressure,Trigger Point Release Intensity/Depth Moderate Body Position Sidelying Comments manual strumming,, uses rolling pin at home- good feedback response Piriformis Body Location R Piriformis Mobilization Type Sustained Pressure,Trigger Point Release Intensity/Depth Moderate Body Position Sidelying Comments manual sustained pressure with /without small range hip ER FM Manual Techniques self MWM Comments tennis ball under R piriformis , near R SI, R hip PNF flossing No response if helps but used to do in past, forgot since moved here. Self-Care/Home Management Treatment Activities Self-Care/Home Management Activities Extensive time ed importance for selfcare: stretching, strengthening, documentation of activities in PT and outside for progress making. Pain so signficant improvement post manual, ther ex, agreeable to IFC and CP end tx with good results, less pain upon wB standing/walking end tx. PT-OP-T Assessment and Plan Start: 09/24/22 17:31 Freq: Status: Active Protocol: Document 11/08/22 10:32 SP (Rec: 11/08/22 11:54 SP [id number]) Physical Therapy Assessment Goals Three Impairment Pt unable to perform heel raise on right foot due to calf atrophy Nursing Home Goal (LTG) Pt to increase MMT of right plantar flexion to at least 3+ /5, demonstrating ability to perform heel raise on single leg, in order to help push-off during gait. LTG Duration 12/23/22 Two Impairment Pt unable to perform preffered outdoor activities, like bike riding Nursing Home Goal (LTG) Pt to safely return to road bike riding without pain in his hip or knee 11/08/22: still some stress on R hip and knee when riding bike but started, always constant 6-7/10 andR LB 8/10. States R knee flares. LTG Duration 12/23/22 progress 11/08/22 One Impairment Pt does not have an appropriate home exercise program Short Term Goal (STG) Pt to be independent and compliant with an appropriate HEP 11/08/22: stretching, rowing maching stretch LB. STG Duration 10/22/22 progressing 11/08/22 Assessment Summary Assessment Pt reported improvement in R SI pain mostly post modalities and potentially manual. He states doesn't feel alot change in increased ROM and pain gets in R hip/SI/back regardless of HEP. Improved understanding knee/ankle /hip alignment during SLS star reach. Physical Therapy Plan Frequency and Duration Frequency of Treatment 1-2x/week Plan of Care Start Date 09/24/22 Plan of Care End Date 12/23/22 Therapeutic Interventions Therapeutic Interventions Balance Training,Gait Training ,Home Exercise Program,Joint Mobilizations,Manual Therapy, Neuromuscular Re-education, Patient/Caregiver Education, Self-Care/Home Management,Soft Tissue Mobilization, Therapeutic Activities, Therapeutic Exercises Next Visit Focus/Plan Next Note Type Treatment Note Next Visit Plan Recheck HEP, MMT for goal feedback. Manual needed and self. TKE, resisted supine clam, response to resisted lateral stepping last tx. POC: LE strengthening, joint mobs, STM, balance training
--- NOTE | 2022-11-13 10:33 | PT.OTN ---
Current Diagnoses Type 2 diabetes mellitus without complications (11/13/22) Polyneuropathy, unspecified (11/13/22) Other chronic pain (11/13/22) Pain in right hip (11/13/22) Pain in right knee (11/13/22) Pain in unspecified knee (11/13/22) Stiffness of right hip, not elsewhere classified (11/13/22) Stiffness of right knee, not elsewhere classified (11/13/22) Low back pain, unspecified (11/13/22) Physical Therapy Treatment Note PT-OP-A Visit Information Start: 09/24/22 17:31 Freq: Status: Active Protocol: Document 11/13/22 09:49 SP (Rec: 11/13/22 10:34 SP [id number]) Out-Patient Physical Therapy Visit Information Visit Information Visit Type Treatment Note Visit Start Time 09:49 Visit Stop Time 10:33 Total Visit Minutes 44 Visit Number 12 Number of MANAGER MEDICAL AFFAIRS Visits 3 Evaluation Information Evaluation Date 09/24/22 PT-OP-B Current Condition Start: 09/24/22 17:31 Freq: Status: Active Protocol: Document 09/24/22 09:50 DCW (Rec: 09/24/22 17:53 DCW [id number]) Current Condition History of Current Condition Onset Date Six year history Current Complaints Low back pain, right hip pain, right knee pain History of Current Condition Pt is a 72 year old male presenting with a six year history of complex low back and right leg pain. Pt notes that pain largely began six years ago, when he tore his Achilles tendon while playing Pickleball. Reports he underwent a surgical repair that failed, and he was then unwilling to get any further surgery. Since that time, he has had a right medial meniscus tear, significant worsening of right hip pain, as well as a long-standing history of low back pain. 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 Pt has recently moved to the area from [place], where he had been participating in PT, which he notes was helpful . Admits, however, that in the five months since he moved, he has not really done anything at all. Feels working on flexibility and strength was helpful in the past. Treatment Goals Patient/Caregiver Goals Return to riding his bike, would also like to try playing pickleball again PT-OP-C Subjective Start: 09/24/22 17:31 Freq: Status: Active Protocol: Document 11/13/22 09:49 SP (Rec: 11/13/22 10:34 SP [id number]) OP-PT Subjective Patient Comments Patient Comments Pt reported does some of his stretches and trying keep/be active. PT-OP-F Manual Assessment Start: 09/24/22 17:31 Freq: Status: Active Protocol: Document 09/24/22 09:50 DCW (Rec: 09/24/22 17:53 DCW [id number]) Manual Assessments Soft Tissue Assessment Soft Tissue Mobility Assessment Moderate-severe tone right piriformis, TFL/ITB, hamstrings Joint Mobility Assessment Joint Mobility Assessment Limitations in passive hip mobility into flexion or adduction, hard end feel PT-OP-K Range of Motion Start: 09/24/22 17:31 Freq: Status: Active Protocol: Document 09/24/22 09:50 DCW (Rec: 09/25/22 10:35 DCW [id number]) Hip Goniometric Range of Motion Hip Right Passive Hip ROM WFL No Testing Position Supine Flexion w/Knee Flexed 96 Straight Leg Raise 55 Comments Horizontal adduction unable to cross midline, hard end-feel PT-OP-L Special Tests Start: 09/24/22 17:31 Freq: Status: Active Protocol: Document 09/24/22 09:50 DCW (Rec: 09/25/22 10:35 DCW [id number]) Special Tests Lumbar Spine Special Tests Straight Leg Raise Test Results Hamstring tightness, limited 55? on R Manual Traction Test Results Negative A-P Shearing Test Results Negative PT-OP-M Strength Start: 09/24/22 17:31 Freq: Status: Active Protocol: Document 09/24/22 09:50 DCW (Rec: 09/25/22 10:35 DCW [id number]) Hip Strength Hip Manual Muscle Testing Right Flexion (L2) 3+ Fair+ Abduction 3+ Fair+ Adduction 3+ Fair+ Left Flexion (L2) 4 Good Abduction 4- Good- Adduction 4- Good- Knee Strength Knee Manual Muscle Testing Right Flexion (S2) 4+ Good+ Extension (L3) 4+ Good+ Left Flexion (S2) 4+ Good+ Extension (L3) 4+ Good+ Ankle/Foot Strength Ankle and Foot Manual Muscle Testing Right Dorsiflexion (L4) 4+ Good+ Plantarflexion (S1) 2+ Poor+ Left Dorsiflexion (L4) 4+ Good+ Plantarflexion (S1) 4+ Good+ PT-OP-Q Treatments Start: 09/24/22 17:31 Freq: Status: Active Protocol: Document 11/13/22 09:49 SP (Rec: 11/13/22 10:34 SP [id number]) Therapeutic Exercises Supine Exercises SKTC Side right Reps/Minutes 30 x2 Sidelying Exercises Reverse Clamshell Sidelying Exercise Name good form response painfree Side right Reps/Minutes x10 Comments good feedback painfree Clamshell Sidelying Exercise Name good form response painfree Side right Reps/Minutes x10 Comments good feedback painfree Standing Exercises lateral side bend Standing Exercise Name add Side left resisted stepping Standing Exercise Name lateral- going at home no pain reports- not demo during tx Side bilateral Resistance Green TB- thighs Equipment Used better response, no knee irritation Reps/Minutes 10 ft x2 lap Comments cued head up/ CS neutral, PPT/ TA Manual Therapy Treatment Soft Tissue Mobilization anterior hip Body Location R TFL, psoas, prox rect femoris Mobilization Type Strumming,Sustained Pressure Intensity/Depth Moderate Body Position Hooklying ES, paraspinal Body Location R L5/S1, QL Mobilization Type Strumming,Sustained Pressure, Other Intensity/Depth Moderate Body Position Prone Comments manual, elevation Piriformis Body Location R Piriformis Mobilization Type Sustained Pressure,Trigger Point Release Intensity/Depth Moderate Body Position Sidelying Comments manual sustained pressure with /without small range hip ER FM PT-OP-T Assessment and Plan Start: 09/24/22 17:31 Freq: Status: Active Protocol: Document 11/13/22 09:49 SP (Rec: 11/13/22 10:34 SP [id number]) Physical Therapy Assessment Goals Three Impairment Pt unable to perform heel raise on right foot due to calf atrophy Engineering Technician Goal (LTG) Pt to increase MMT of right plantar flexion to at least 3+ /5, demonstrating ability to perform heel raise on single leg, in order to help push-off during gait. LTG Duration 12/23/22 Two Impairment Pt unable to perform preffered outdoor activities, like bike riding Group Home Goal (LTG) Pt to safely return to road bike riding without pain in his hip or knee 11/08/22: still some stress on R hip and knee when riding bike but started, always constant 6-7/10 andR LB 03/14. States R knee flares. LTG Duration 12/23/22 progress 11/08/22 One Impairment Pt does not have an appropriate home exercise program Short Term Goal (STG) Pt to be independent and compliant with an appropriate HEP 11/08/22: stretching, rowing maching stretch LB. STG Duration 10/22/22 progressing 11/08/22 Assessment Summary Assessment Pt good feedback response to focused L5/S1 and hip flexor mobility with reported less tension in R LB post manual. Reviewed past HEP clamshell/ reverse clamshell and resisted side stepping with no adverse affects. Pt reports has person stim unit at home and will trial at home for compliment to manual support for pain and lessening muscle tension carryover at home. Physical Therapy Plan Frequency and Duration Frequency of Treatment 1-2x/week Plan of Care Start Date 09/24/22 Plan of Care End Date 12/23/22 Therapeutic Interventions Therapeutic Interventions Balance Training,Gait Training ,Home Exercise Program,Joint Mobilizations,Manual Therapy, Neuromuscular Re-education, Patient/Caregiver Education, Self-Care/Home Management,Soft Tissue Mobilization, Therapeutic Activities, Therapeutic Exercises Next Visit Focus/Plan Next Note Type Treatment Note Next Visit Plan Recheck HEP, MMT for goal feedback. Manual needed and self. Add resisted supine clam , paloff press, LTR, balance training, functional LE strethening. POC: LE strengthening, joint mobs, STM, balance training
--- NOTE | 2022-11-15 10:30 | PT.OTN ---
Current Diagnoses Type 2 diabetes mellitus without complications (11/15/22) Polyneuropathy, unspecified (11/15/22) Other chronic pain (11/15/22) Pain in right hip (11/15/22) Pain in right knee (11/15/22) Pain in unspecified knee (11/15/22) Stiffness of right hip, not elsewhere classified (11/15/22) Stiffness of right knee, not elsewhere classified (11/15/22) Low back pain, unspecified (11/15/22) Physical Therapy Treatment Note PT-OP-A Visit Information Start: 09/24/22 17:31 Freq: Status: Active Protocol: Document 11/15/22 09:50 SP (Rec: 11/15/22 10:36 SP [id number]) Out-Patient Physical Therapy Visit Information Visit Information Visit Type Treatment Note Visit Start Time 09:50 Visit Stop Time 10:30 Total Visit Minutes 40 Visit Number 13 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 Pt notes that pain largely began six years ago, when he tore his Achilles tendon while playing Pickleball. Reports he underwent a surgical repair that failed, and he was then unwilling to get any further surgery. Since that time, he has had a right medial meniscus tear, significant worsening of right hip pain, as well as a long-standing history of low back pain. 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 Pt has recently moved to the area from [place], where he had been participating in PT, which he notes was helpful . Admits, however, that in the five months since he moved, he has not really done anything at all. Feels working on flexibility and strength was helpful in the past. Treatment Goals Patient/Caregiver Goals Return to riding his bike, would also like to try playing pickleball again PT-OP-C Subjective Start: 09/24/22 17:31 Freq: Status: Active Protocol: Document 11/15/22 09:50 SP (Rec: 11/15/22 10:36 SP [id number]) OP-PT Subjective Patient Comments Patient Comments Pt reports felt little better after last tx and compliant with stretching but doesn't seem to help long lasting. He states not seeing significant improvement in pain in R L5 and SI region, is hopeful can find a massage therapist and chiropractor to help release or mobilize this area lacking mobility. He did use his portable stimulator but isn't as strong as a clinic uses. Pt asked if would be ok to perform a plank for support for low back. PT-OP-F Manual Assessment Start: 09/24/22 17:31 Freq: Status: Active Protocol: Document 09/24/22 09:50 DCW (Rec: 09/24/22 17:53 DCW [id number]) Manual Assessments Soft Tissue Assessment Soft Tissue Mobility Assessment Moderate-severe tone right piriformis, TFL/ITB, hamstrings Joint Mobility Assessment Joint Mobility Assessment Limitations in passive hip mobility into flexion or adduction, hard end feel PT-OP-K Range of Motion Start: 09/24/22 17:31 Freq: Status: Active Protocol: Document 09/24/22 09:50 DCW (Rec: 09/25/22 10:35 DCW [id number]) Hip Goniometric Range of Motion Hip Right Passive Hip ROM WFL No Testing Position Supine Flexion w/Knee Flexed 96 Straight Leg Raise 55 Comments Horizontal adduction unable to cross midline, hard end-feel PT-OP-L Special Tests Start: 09/24/22 17:31 Freq: Status: Active Protocol: Document 09/24/22 09:50 DCW (Rec: 09/25/22 10:35 DCW [id number]) Special Tests Lumbar Spine Special Tests Straight Leg Raise Test Results Hamstring tightness, limited 55? on R Manual Traction Test Results Negative A-P Shearing Test Results Negative PT-OP-M Strength Start: 09/24/22 17:31 Freq: Status: Active Protocol: Document 09/24/22 09:50 DCW (Rec: 09/25/22 10:35 DCW [id number]) Hip Strength Hip Manual Muscle Testing Right Flexion (L2) 3+ Fair+ Abduction 3+ Fair+ Adduction 3+ Fair+ Left Flexion (L2) 4 Good Abduction 4- Good- Adduction 4- Good- Knee Strength Knee Manual Muscle Testing Right Flexion (S2) 4+ Good+ Extension (L3) 4+ Good+ Left Flexion (S2) 4+ Good+ Extension (L3) 4+ Good+ Ankle/Foot Strength Ankle and Foot Manual Muscle Testing Right Dorsiflexion (L4) 4+ Good+ Plantarflexion (S1) 2+ Poor+ Left Dorsiflexion (L4) 4+ Good+ Plantarflexion (S1) 4+ Good+ PT-OP-Q Treatments Start: 09/24/22 17:31 Freq: Status: Active Protocol: Document 11/15/22 09:50 SP (Rec: 11/15/22 10:36 SP [id number]) Therapeutic Exercises Supine Exercises isometric Supine Exercise Name adduction ball between knees, hip/knee flexion Side bilateral Comments good feedback response painfree Standing Exercises plank Standing Exercise Name assess next tx: wanted to try home for added back/core rows, extension Standing Exercise Name added to HEP Side bilateral Equipment Used Tb #3 ext, Tb #4 rows Reps/Minutes 2x10 each Comments cued neutral pelvis, head neutral- painfree response palloff press Standing Exercise Name added to HEP Side bilateral Resistance Tb #3 Reps/Minutes 2x10 Comments cued neutral pelvis, head neutral- painfree response Manual Therapy Treatment Soft Tissue Mobilization ES, paraspinal Body Location R L5/S1, QL Mobilization Type Strumming,Sustained Pressure, Other Intensity/Depth Moderate Body Position Prone Comments manual, elevation Piriformis Body Location R Piriformis Mobilization Type Sustained Pressure,Trigger Point Release Intensity/Depth Moderate Body Position Sidelying Comments manual sustained pressure with /without small range hip ER FM Manual Techniques muscle energy R hip Type R hip Comments isometric hip/knee flexion, abd 90/90, PNF add/flexion/ER patterning Neuro Re-Education Treatment Balance Activities hurdles Equipment 6 hurdles, foam Comments good stability, cue x1 for slower pacing when foot caught 1 liliana. PT-OP-T Assessment and Plan Start: 09/24/22 17:31 Freq: Status: Active Protocol: Document 11/15/22 09:50 SP (Rec: 11/15/22 10:36 SP [id number]) Physical Therapy Assessment Goals Three Impairment Pt unable to perform heel raise on right foot due to calf atrophy Group Home Goal (LTG) Pt to increase MMT of right plantar flexion to at least 3+ /5, demonstrating ability to perform heel raise on single leg, in order to help push-off during gait. LTG Duration 12/23/22 Two Impairment Pt unable to perform preffered outdoor activities, like bike riding Group Home Goal (LTG) Pt to safely return to road bike riding without pain in his hip or knee 11/08/22: still some stress on R hip and knee when riding bike but started, always constant 6-7/10 andR LB 8/. States R knee flares. LTG Duration 12/23/22 progress 11/08/22 One Impairment Pt does not have an appropriate home exercise program Short Term Goal (STG) Pt to be independent and compliant with an appropriate HEP 11/08/22: stretching, rowing maching stretch LB. STG Duration 10/22/22 progressing 11/08/22 Assessment Summary Assessment Pt responded well to manual and added resisted palloff press, rows and extension exercises for core strengthening to HEP today with painfree in LB response. Pt not wanting to add more PT appts at this time, will wait to assess next and last tx scheduled follow up appt with PT. Physical Therapy Plan Frequency and Duration Frequency of Treatment 1-2x/week Plan of Care Start Date 09/24/22 Plan of Care End Date 12/23/22 Therapeutic Interventions Therapeutic Interventions Balance Training,Gait Training ,Home Exercise Program,Joint Mobilizations,Manual Therapy, Neuromuscular Re-education, Patient/Caregiver Education, Self-Care/Home Management,Soft Tissue Mobilization, Therapeutic Activities, Therapeutic Exercises Next Visit Focus/Plan Next Note Type Treatment Note Next Visit Plan Recheck response to resisted rows, ext, paloff press added last tx. Assess planks next tx : didn't get to last tx. Review HEP. MMT for goal feedback. Add resisted supine clam, LTR, balance training. POC: LE strengthening, joint mobs, STM, balance training
--- NOTE | 2022-11-20 14:31 | PT.OTN ---
Current Diagnoses Type 2 diabetes mellitus without complications (11/20/22) Polyneuropathy, unspecified (11/20/22) Other chronic pain (11/20/22) Pain in right hip (11/20/22) Pain in right knee (11/20/22) Pain in unspecified knee (11/20/22) Stiffness of right hip, not elsewhere classified (11/20/22) Stiffness of right knee, not elsewhere classified (11/20/22) Low back pain, unspecified (11/20/22) Physical Therapy Treatment Note PT-OP-A Visit Information Start: 09/24/22 17:31 Freq: Status: Active Protocol: Document 11/20/22 13:45 DCW (Rec: 11/20/22 14:31 DCW [id number]) Out-Patient Physical Therapy Visit Information Visit Information Visit Type Discharge Summary Visit Start Time 13:45 Visit Stop Time 14:30 Total Visit Minutes 45 Visit Number 14 Number of PLANNER Visits 0 Evaluation Information Evaluation Date 09/24/22 PT-OP-B Current Condition Start: 09/24/22 17:31 Freq: Status: Active Protocol: Document 09/24/22 09:50 DCW (Rec: 09/24/22 17:53 DCW [id number]) Current Condition History of Current Condition Onset Date Six year history Current Complaints Low back pain, right hip pain, right knee pain History of Current Condition Pt is a 72 year old male presenting with a six year history of complex low back and right leg pain. Pt notes that pain largely began six years ago, when he tore his Achilles tendon while playing Pickleball. Reports he underwent a surgical repair that failed, and he was then unwilling to get any further surgery. Since that time, he has had a right medial meniscus tear, significant worsening of right hip pain, as well as a long-standing history of low back pain. 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 Pt has recently moved to the area from [place], where he had been participating in PT, which he notes was helpful . Admits, however, that in the five months since he moved, he has not really done anything at all. Feels working on flexibility and strength was helpful in the past. Treatment Goals Patient/Caregiver Goals Return to riding his bike, would also like to try playing pickleball again PT-OP-C Subjective Start: 09/24/22 17:31 Freq: Status: Active Protocol: Document 11/20/22 13:45 DCW (Rec: 11/20/22 14:31 DCW [id number]) OP-PT Subjective Patient Comments Patient Comments Pt has not felt like there has been much change overall. PT-OP-F Manual Assessment Start: 09/24/22 17:31 Freq: Status: Active Protocol: Document 11/20/22 13:45 DCW (Rec: 11/20/22 14:20 DCW [id number]) Manual Assessments Joint Mobility Assessment Joint Mobility Assessment Limitations in passive hip mobility into flexion or adduction, hard end feel PT-OP-K Range of Motion Start: 09/24/22 17:31 Freq: Status: Active Protocol: Document 11/20/22 13:45 DCW (Rec: 11/20/22 14:20 DCW [id number]) Hip Goniometric Range of Motion Hip Right Passive Hip ROM WFL No Testing Position Supine Flexion w/Knee Flexed 104 Straight Leg Raise 62 Comments Horizontal adduction unable to cross midline, hard end-feel PT-OP-L Special Tests Start: 09/24/22 17:31 Freq: Status: Active Protocol: Document 11/20/22 13:45 DCW (Rec: 11/20/22 14:20 DCW [id number]) Special Tests Lumbar Spine Special Tests Straight Leg Raise Test Results Hamstring tightness, limited 62? on R PT-OP-M Strength Start: 09/24/22 17:31 Freq: Status: Active Protocol: Document 11/20/22 13:45 DCW (Rec: 11/20/22 14:20 DCW [id number]) Hip Strength Hip Manual Muscle Testing Right Flexion (L2) 3+ Fair+ Abduction 4 Good Adduction 4 Good Left Abduction 4+ Good+ Adduction 4+ Good+ Knee Strength Knee Manual Muscle Testing Right Flexion (S2) 4+ Good+ Extension (L3) 4+ Good+ Left Flexion (S2) 4+ Good+ Extension (L3) 4+ Good+ Ankle/Foot Strength Ankle and Foot Manual Muscle Testing Right Dorsiflexion (L4) 4+ Good+ Plantarflexion (S1) 3+ Fair+ Left Dorsiflexion (L4) 4+ Good+ Plantarflexion (S1) 4+ Good+ PT-OP-Q Treatments Start: 09/24/22 17:31 Freq: Status: Active Protocol: Document 11/20/22 13:45 DCW (Rec: 11/20/22 14:31 DCW [id number]) Therapeutic Exercises Supine Exercises Foam roll Supine Exercise Name foam roll on paraspinals Manual Therapy Treatment Soft Tissue Mobilization anterior hip Body Location R TFL, psoas Mobilization Type Strumming,Sustained Pressure Intensity/Depth Moderate Body Position Hooklying ES, paraspinal Body Location R L5/S1, QL Mobilization Type Strumming,Sustained Pressure, Other Intensity/Depth Moderate Body Position Prone Comments manual, elevation Piriformis Body Location R Piriformis Mobilization Type Sustained Pressure,Trigger Point Release Intensity/Depth Moderate Body Position Sidelying Comments manual sustained pressure with /without small range hip ER FM PT-OP-T Assessment and Plan Start: 09/24/22 17:31 Freq: Status: Active Protocol: Document 11/20/22 13:45 DCW (Rec: 11/20/22 14:31 DCW [id number]) Physical Therapy Assessment Goals Three Impairment Pt unable to perform heel raise on right foot due to calf atrophy Detention Goal (LTG) Pt to increase MMT of right plantar flexion to at least 3+ /5, demonstrating ability to perform heel raise on single leg, in order to help push-off during gait. LTG Duration 12/23/22 Two Impairment Pt unable to perform preffered outdoor activities, like bike riding Detention Goal (LTG) Pt to safely return to road bike riding without pain in his hip or knee 11/08/22: still some stress on R hip and knee when riding bike but started, always constant 6-7/10 andR LB 8/10. States R knee flares. LTG Duration 12/23/22 progress 11/08/22 One Impairment Pt does not have an appropriate home exercise program Short Term Goal (STG) Pt to be independent and compliant with an appropriate HEP 11/08/22: stretching, rowing maching stretch LB. STG Duration 10/22/22 progressing 11/08/22 Assessment Summary Assessment Pt largely plateaued in progress, has made minimal changes since initial evaluation. Return to PCP for next step, will be discharged from skilled PT at this time. Physical Therapy Plan Frequency and Duration Frequency of Treatment 1-2x/week Plan of Care Start Date 09/24/22 Plan of Care End Date 12/23/22 Therapeutic Interventions Therapeutic Interventions Balance Training,Gait Training ,Home Exercise Program,Joint Mobilizations,Manual Therapy, Neuromuscular Re-education, Patient/Caregiver Education, Self-Care/Home Management,Soft Tissue Mobilization, Therapeutic Activities, Therapeutic Exercises Discharge Physical Therapy Discharge Reasons Plateau in Progress Next Visit Focus/Plan Next Note Type Discharge Summary
== END 2022-11-22 14:21 | disposition home or self-care (01) ==
LOC: PHYS 13:45
PROVIDERS: PCP Family Medicine; Referring Provider Family Medicine; Visit Provider Family Medicine
DX: M54.50 Low back pain, unspecified (principal); M25.569 Pain in unspecified knee; G89.29 Other chronic pain; E11.9 Type 2 diabetes mellitus without complications; G62.9 Polyneuropathy, unspecified; M25.561 Pain in right knee; M25.551 Pain in right hip; M25.651 Stiffness of right hip, not elsewhere classified; M25.661 Stiffness of right knee, not elsewhere classified
CPT/HCPCS: 97110; 97140; 97163; 97535

== ENCOUNTER → 2022-11-21 13:55 | Outpatient (CLI) | payer MEDICARE, BC, SELFPAY ==
--- NOTE | 2022-11-30 16:30 | DIAB.MNTFU ---
Follow-up Diabetes Medical Nutrition Therapy Assessment Name: Dawn Rios (Eric) Date: 11/21/22 Time: 210-315p Dx: Type II Diabetes Provider: Adelia Reyes presents for Dm follow-up. States he continues to avoid sweets. States his PCP said he could relax a bit with nutrition changes. He reports he does not think this is a good idea for him, ie all or nothing mentality expressed. RD agrees that Eric could allow more room for moderation, but he does not yet feel comfortable with this. Much improved hgA1c from 8.9% to 6.6% 10/2022. Diet recall indicates continued low to moderate carb intake for most meals/snacks. Occasional high intake with couscous portion. Endorses grazing in the evening: yogurt with berries and granola, nuts, dark ben nut bar. Water intake the same, 2c daily. Feels he has gained a couple pounds from increased intake of dark ben nut bar. States he feels bored. Trying to connect more through rowing club, neighbors, senior center. Anthropometrics: Ht: 69 Wt: 190# reported Physical Activity: Completed PT, did not help. May see chiropractor. Bought electric bike. Rowing more recently, aiming for 3x per week. Walkign now weather dependent, less lately. Self-Monitoring Blood Glucose: None. Diabetes Medications: Metformin 2000mg Glipizide 2.5mg Pertinent Labs: Much improved hgA1c and lipids 10/2022 HgA1c: 6.6% Chol: 162 T LDL: 97 HDL: 49 07/2023: HgA1c 8.9% Chol: 314 T LDL: 223 HDL: 50 Past Medical History: (Last Updated 08/13/22 @ 12:50 by Jitendra Lockwood MD) Chronic back pain (~2017) Chronic knee pain Chronic neck pain Erectile dysfunction Grieving Hearing loss HSV-2 (herpes simplex virus 2) infection Hyperlipidemia Low back pain Peripheral neuropathy Type 2 diabetes mellitus without complication, with no history of insulin use (~2019) Nutrition Rx: Plate Method Nutrition Diagnosis: - Food and nutrition related knowledge deficit r/t no previous DSME or MNT for T2DM aeb pt report- improved - Inconsistent energy intake r/t knowledge deficit aeb diet recall- cont - Predicted inadequate fluids intake r/t limited water aeb diet recall- cont Intervention: This participant was very receptive. Provided appropriate educational handouts. Discussed the following topics Snack recs and meal timing Fluid recs Improved labs and lab review Plate Method review Physical activity plan and progress Created SMART goals for patient self-care and success. Goals: Add protein shake 1x per day- not met Increase water to 3-4c per day- in progress Add rowing machine safely 1x per week- met Walk [place]- new Walk 3x per week- new Set 10p snack and choose one option- new Increase water intake- new Follow-up: SUDARSHAN LORA follow-up 6 months [address] will be on leave February until Jun or Jul. Offered f/u with other RD. He would like to f/u at end of year. Scheduled for early Jul. Overall, DM management going very well. Joy Tolbert RDN, [facility] Certified Diabetes Care and [employer] P: [phone] Thank you for this referral
== END ==
PROVIDERS: PCP Family Medicine; Referring Provider Family Medicine; Visit Provider Family Medicine
DX: E11.9 Type 2 diabetes mellitus without complications (principal); Z79.84 Long term (current) use of oral hypoglycemic drugs; Z71.3 Dietary counseling and surveillance
CPT/HCPCS: 97803

== ENCOUNTER → 2023-01-16 09:11 | Outpatient (CLI) | payer MEDICARE, BC, SELFPAY ==
[2023-01-17 03:36] LABS: Labcorp Hemoglobin (Hb) A1c 6.6 % (4.8-5.6)
== END ==
PROVIDERS: PCP Family Medicine; Referring Provider Family Medicine; Visit Provider Family Medicine
DX: E11.9 Type 2 diabetes mellitus without complications (principal)
CPT/HCPCS: 36415; 83036

== ENCOUNTER → 2023-03-07 | Outpatient (CLI) | payer MEDICARE, BC, SELFPAY ==
--- NOTE | 2023-03-07 17:04 | DI.RAD.S_ITS ---
PROCEDURE: XR KNEE LT 3V INDICATIONS: acute medial knee pain since last night TECHNIQUE: 3 views of the knee were acquired. COMPARISON: [facility] [place], CR, XR KNEE 4+ VIEWS RIGHT, 08/15/2022, 14:37. FINDINGS: Bones: No fractures or dislocations. No suspicious bony lesions. Mild tricompartmental knee joint space narrowing with minimal periarticular osteophyte formation. Soft tissues: Small joint effusion. No suspicious soft tissue calcifications. Medial posterior soft tissue calcification. IMPRESSION: Mild tricompartmental knee joint degeneration and small knee joint effusion. Dictated by: Evangelist RECINOS Interpreted: Terry Manriquez MD on 03/07/2023 at 20:51 Transcribed by: HAYLEE on 03/07/2023 at 20:52 Approved by: Terry Manriquez M.D. on 03/18/2023 at 17:45
== END ==
PROVIDERS: PCP Family Medicine; Referring Provider Family Medicine; Visit Provider Family Medicine
DX: M17.12 Unilateral primary osteoarthritis, left knee; M25.462 Effusion, left knee; M25.569 Pain in unspecified knee
CPT/HCPCS: 73562

== ENCOUNTER 2023-04-15 13:30 | Outpatient (RCR) | payer MEDICARE, BC, SELFPAY ==
--- NOTE | 2023-03-28 13:32 | PT.OIE ---
Current Diagnoses Unilateral primary osteoarthritis, left knee (03/28/23) Unspecified injury of left lower leg, initial encounter (03/28/23) Past Medical History (Last Updated 08/13/22 @ 12:50 by Jitendra Lockwood MD) Chronic back pain (~2018) Chronic knee pain Chronic neck pain Erectile dysfunction Grieving Hearing loss HSV-2 (herpes simplex virus 2) infection Hyperlipidemia Low back pain Peripheral neuropathy Type 2 diabetes mellitus without complication, with no history of insulin use (~2019) Past Surgical History (Last Updated 07/30/22 @ 20:04 by Merly Soria) Anesthesia History of Achilles tendon repair (~2015) Visit Care Team Role Provider Type Kristi Delvalle DO Family Provider Physician Primary Care Provider Specialty: Family Practice Address: [address] [place] [address], [address], [address] Email: [email or web address] [email or web address] Attending Provider Advanced Farm Mechanic Referring Provider Specialty: Medical Address: [address] [place] [address], [id number] Email: [email or web address] Physical Therapy Initial Evaluation PT-OP-A Visit Information Start: 03/27/23 16:53 Freq: Status: Active Protocol: Document 03/28/23 13:32 AM (Rec: 03/28/23 15:04 AM [id number]) Out-Patient Physical Therapy Visit Information Visit Information Visit Type Initial Evaluation Visit Start Time 13:36 Visit Stop Time 14:28 Total Visit Minutes 52 Visit Number 1 Number of LEAF BLENDER Visits 0 Evaluation Information Evaluation Date 03/28/23 Precautions Precautions hx of LBP, Prior R achilles rupture with failed repair- unable to do heel raise PT-OP-B Current Condition Start: 03/27/23 16:53 Freq: Status: Active Protocol: Document 03/28/23 13:32 AM (Rec: 03/28/23 15:04 AM [id number]) Current Condition History of Current Condition Onset Date 3 weeks ago Current Complaints Pt with L medial knee pain that started 3 weeks ago. History of Current Condition Pt tore his R achilles tendon years ago and had failed surgical repair. Pt unable to do heel raise on R. Pt also has a R medial mensiscus tear. Pt notices gait faults and R muscle atrophy. Pt wondering if L knee pain is from years of compensation. Pt also has a hx of low back pain Prior Treatments and Tests Pt had an x-ray that showed arthritis. Possible medial meniscus tear? Accupuncture Future Testing and Treatments Planned Schedule cortisone injection for a few days before he goes on trip to [place] Treatment Goals Patient/Caregiver Goals To decrease pain and impove tolerance to walking/hiking. Prior Functional Status Baseline Function- ADL's Independent Baseline Function- Mobility Independent Current Functional Impairments (Reported) Functional Limitations- ADL's Difficulty to tie shoes Functional Limitations- Mobility/Gait Pt reports difficult ascending /descending stairs. Pt reports pain with twisting. Pt unable to walk as far. Pt reports that he would typically walk 7 ,500 steps per day. Functional Limitations- Recreation/ Pt is not hiking or going out Hobbies into the quick right now. Pt unable to ride his e-bike right now. PT-OP-C Subjective Start: 03/27/23 16:53 Freq: Status: Active Protocol: Document 03/28/23 13:32 AM (Rec: 03/28/23 15:04 AM [id number]) OP-PT Subjective Patient Comments Patient Reported Progress Worse Patient Questionnaires Lower Extremity Functional Scale LEFS Score 32/80 LEFS Impairment 40 to 59% Impaired (Score 32- 47) OP-PT Pain Assessment Pain Assessment Grid Paper Pain Assessment Grid Completed Yes Location Left Medial Knee Pain Location Details L medial knee Intensity 6 Scale Used Numeric (0 - 10) Description Aching,Sharp Frequency Daily Pain Aggravating Factors Activity,Exercise,Walking, Stair Climbing,Bending Other Pain Aggravating Factors Hiking Pain Alleviating Factors Cold,Medication Other Pain Alleviating Factors accupuncture Home Pain Medication Use Pain Medications Used Yes: Naproxen Home Pain Medication Frequency PRN PT-OP-D Balance Start: 03/27/23 16:53 Freq: Status: Active Protocol: Document 03/28/23 13:32 AM (Rec: 03/28/23 15:04 AM [id number]) OP-PT Balance Assessment Standing Balance Static Standing Balance Ability Fair Dynamic Standing Balance Ability Fair Balance Tests Single Limb Standing Single Limb- Right 8 sec Single Limb- Left 12 sec Tandem Tandem Standing 30 sec ea Smith Fall Scale Copyright Permission PT-OP-E Functional Tests Start: 03/27/23 16:53 Freq: Status: Active Protocol: Document 03/28/23 13:32 AM (Rec: 03/28/23 15:04 AM [id number]) Functional Tests Five Times Sit to Stand Test Score 17.25 Comments Pt reports 4/10 pain PT-OP-F Manual Assessment Start: 03/27/23 16:53 Freq: Status: Active Protocol: Document 03/28/23 13:32 AM (Rec: 03/28/23 15:04 AM [id number]) Manual Assessments Soft Tissue Assessment Soft Tissue Mobility Assessment Quad and hamstring soft tissue restrictions Joint Mobility Assessment Joint Mobility Assessment Patellar mobility WNL PT-OP-G Mobility & Gait Start: 03/27/23 16:53 Freq: Status: Active Protocol: Document 03/28/23 13:32 AM (Rec: 03/28/23 15:04 AM [id number]) OP Gait Assessment Gait Gait Assistance Required: Independent Assistive Devices Assistive Device None Orthotic/Prosthetic Devices or Brace: Yes Gait Deviations General Gait Pattern Antalgic,Wide Based Gait Factors Limiting Gait Function Factors Limiting Gait Function Decreased Strength,Limited Range of Motion,Pain Comments Gait Comments Pt with step-length variances, decreased push-off on R PT-OP-J Posture/Palpation/Skin Start: 03/27/23 16:53 Freq: Status: Active Protocol: Document 03/28/23 13:32 AM (Rec: 03/28/23 15:04 AM [id number]) Posture Evaluation Position Standing Knee Posture (L) Genu Varus,(R) Genu Varus, (L) Ext. Tibial Torsion,(R) Ext. Tibial Torsion Palpation Assessment Location One Palpation Location L medial knee Palpation Findings Soft Tissue Tightness, Tenderness Palpation Details Joint line tenderness PT-OP-K Range of Motion Start: 03/27/23 16:53 Freq: Status: Active Protocol: Document 03/28/23 13:32 AM (Rec: 03/28/23 15:04 AM [id number]) Knee Goniometric Range of Motion Knee Right Knee ROM WFL Yes Patient Position Supine Flexion Active (degrees) 126 Extension Active (degrees) 0 Comments Hamstring 90/90: 25 deg Left Knee ROM WFL Yes Patient Position Supine Flexion Active (degrees) 120 Extension Active (degrees) 5 Comments Hamstring 90/90 36 deg PT-OP-L Special Tests Start: 03/27/23 16:53 Freq: Status: Active Protocol: Document 03/28/23 13:32 AM (Rec: 03/28/23 15:04 AM [id number]) Special Tests Knee Special Tests Danika Test Test Results + on R Comments Pain with IR and ER PT-OP-M Strength Start: 03/27/23 16:53 Freq: Status: Active Protocol: Document 03/28/23 13:32 AM (Rec: 03/28/23 15:26 AM [id number]) Hip Strength Hip Manual Muscle Testing Right Flexion (L2) 4- Good- Abduction 4- Good- External Rotation 4- Good- Left Flexion (L2) 4- Good- Abduction 4- Good- External Rotation 4- Good- Knee Strength Knee Manual Muscle Testing Right Flexion (S2) 4 Good Extension (L3) 4 Good Left Flexion (S2) 4 Good Extension (L3) 4 Good Comments Pt with difficulty maintaining TKE with SLR on L. Pt required cueing for lower abdominal control PT-OP-Q Treatments Start: 03/27/23 16:53 Freq: Status: Active Protocol: Document 03/28/23 13:32 AM (Rec: 03/28/23 15:26 AM [id number]) Therapeutic Exercises Supine Exercises 3 Supine Exercise Name SLR Side left Reps/Minutes x5 2 Supine Exercise Name Heel slide Side left Reps/Minutes x10 1 Supine Exercise Name SAQ Side left Equipment Used pillow under knee Reps/Minutes x6x5 sec hold Sidelying Exercises 1 Sidelying Exercise Name Clamshell Side left Equipment Used pillow between knees Reps/Minutes x10 Standing Exercises 2 Standing Exercise Name Standing hip abd diagonal Side left Reps/Minutes x10 1 Standing Exercise Name Hamstring stretch Side bilateral Equipment Used at step Reps/Minutes x30 sec ea LE PT-OP-T Assessment and Plan Start: 03/27/23 16:53 Freq: Status: Active Protocol: Document 03/28/23 13:32 AM (Rec: 03/28/23 15:26 AM [id number]) Physical Therapy Assessment Rehab Potential Rehabilitation Potential Excellent Evaluation Complexity Number of Personal Factors/Comorbidities 1-2 Number of Body Systems Impaired 1-2 Clinical Presentation at Evaluation Stable Impairments Impairments Activity Tolerance,Balance, Edema,Functional Activities, Functional Mobility,Gait,Pain, ROM,Soft Tissue Mobility, Strength Goals Seven Impairment HEP Impairment Pt unsure of appropriate exercises for HEP. Nursing Home Goal (LTG) Pt independent with HEP LTG Duration 4 weeks Six Impairment Walking Impairment Pt reports that he has stopped walking for exercise secondary to increase in knee pain. Nursing Home Goal (LTG) Pt able to return to his walking exercise program and able to walk 7,500 steps without production of increased L knee pain. LTG Duration 4 weeks Five Impairment Biking Impairment Pt reports that he is unable to bike without increase in pain. Nursing Home Goal (LTG) Pt to report that he is able to return to biking without increase in L knee pain. LTG Duration 4 weeks Four Impairment Pain rating Impairment Pt with 6/10 pain when standing today. Short Term Goal (STG) Pt to report 3/10 pain when standing. STG Duration 2 weeks Jelly Filter Tender Goal (LTG) Pt to report <1/10 pain when standing. LTG Duration 4 weeks Three Impairment 5x STS test Impairment Pt able to complete 5 STS squats in 17.25 seconds Short Term Goal (STG) Pt able to complete 5 STS squats in 15 seconds. STG Duration 2 weeks Nursing Home Goal (LTG) Pt able complete 5 STS squats in 12 seconds LTG Duration 4 weeks Two Impairment Balance Impairment Pt able to maintain L SLS for 12 seconds. Short Term Goal (STG) Pt able to maintain L SLS for 16 seconds STG Duration 2 weeks Jelly Filter Tender Goal (LTG) Pt able to maintain SLS for 20 sec LTG Duration 4 weeks One Impairment LEFS Impairment Pt with 32/80 on LEFS Jelly Filter Tender Goal (LTG) PT with 60/80 on LEFS LTG Duration 4 weeks Assessment Summary Assessment Dawn Lesser presents to PT with recent onset of L medial knee pain. Pt demonstrates L knee flexion and extension ROM deficits compared to R. Pt also demonstrates decreased hamstring length on L compared to R. Pt demonstratrates weakness at quads with difficulty maintaining TKE and reported fatigue with SLR. Pt has hx of low back dysfunction, therefore SLR on hold until adequate quad length present. Pt able to tolerate SAQ without production of pain. Pt able to tolerate heel slides though cued to avoid end range pain. Pt demonstrates wider base, along with lateral tibial rotation with 5x STS squats. Pt has upcoming trip which will require extensive walking . Pt will benefit from continued PT to progress L LE strength and mobility to improve tolerance to functional and recreational activities. Physical Therapy Plan Frequency and Duration Frequency of Treatment 2x/Week Duration of treatment (weeks) 4 Plan of Care Start Date 03/28/23 Plan of Care End Date 04/25/23 Therapeutic Interventions Therapeutic Interventions Balance Training,Gait Training ,Home Exercise Program,Joint Mobilizations,Manual Therapy, Neuromuscular Re-education, Patient/Caregiver Education, Self-Care/Home Management,Soft Tissue Mobilization,Taping, Therapeutic Activities, Therapeutic Exercises Modalities Cold Pack/Ice Massage,Electric Stimulation,Hot Packs, Ultrasound Next Visit Focus/Plan Next Note Type Treatment Note Next Visit Plan Trial e-stim at next tx session to improve quad strength. Add manual techniques to decrease pain and improve STM. Progress strength as tolerated
--- NOTE | 2023-03-28 13:32 | PT.OPPOC ---
Physical, Occupational & Speech Therapy At [facility] Current Diagnoses Unilateral primary osteoarthritis, left knee (03/28/23) Unspecified injury of left lower leg, initial encounter (03/28/23) Visit Care Team Role Provider Type Kristi Delvalle DO Family Provider Physician Primary Care Provider Specialty: Family Practice Address: [address] [place] [address], [address], [address] Email: [email or web address] Attending Provider Advanced Director Of Academic Support Referring Provider Specialty: Medical Address: [address] [place] [address], [id number] Email: [email or web address] Plan Of Care PT-OP-T Assessment and Plan Start: 03/27/23 16:53 Freq: Status: Active Protocol: Document 03/28/23 13:32 AM (Rec: 03/28/23 15:26 AM [id number]) Physical Therapy Assessment Rehab Potential Rehabilitation Potential Excellent Evaluation Complexity Number of Personal Factors/Comorbidities 1-2 Number of Body Systems Impaired 1-2 Clinical Presentation at Evaluation Stable Impairments Impairments Activity Tolerance,Balance, Edema,Functional Activities, Functional Mobility,Gait,Pain, ROM,Soft Tissue Mobility, Strength Goals Seven Impairment HEP Impairment Pt unsure of appropriate exercises for HEP. Upper Shaper Goal (LTG) Pt independent with HEP LTG Duration 4 weeks Six Impairment Walking Impairment Pt reports that he has stopped walking for exercise secondary to increase in knee pain. Nursing Home Goal (LTG) Pt able to return to his walking exercise program and able to walk 7,500 steps without production of increased L knee pain. LTG Duration 4 weeks Five Impairment Biking Impairment Pt reports that he is unable to bike without increase in pain. Upper Shaper Goal (LTG) Pt to report that he is able to return to biking without increase in L knee pain. LTG Duration 4 weeks Four Impairment Pain rating Impairment Pt with 6/10 pain when standing today. Short Term Goal (STG) Pt to report 3/10 pain when standing. STG Duration 2 weeks Nursing Home Goal (LTG) Pt to report <1/10 pain when standing. LTG Duration 4 weeks Three Impairment 5x STS test Impairment Pt able to complete 5 STS squats in 17.25 seconds Short Term Goal (STG) Pt able to complete 5 STS squats in 15 seconds. STG Duration 2 weeks Nursing Home Goal (LTG) Pt able complete 5 STS squats in 12 seconds LTG Duration 4 weeks Two Impairment Balance Impairment Pt able to maintain L SLS for 12 seconds. Short Term Goal (STG) Pt able to maintain L SLS for 16 seconds STG Duration 2 weeks Nursing Home Goal (LTG) Pt able to maintain SLS for 20 sec LTG Duration 4 weeks One Impairment LEFS Impairment Pt with 32/80 on LEFS Upper Shaper Goal (LTG) PT with 60/80 on LEFS LTG Duration 4 weeks Assessment Summary Assessment Dawn Rios presents to PT with recent onset of L medial knee pain. Pt demonstrates L knee flexion and extension ROM deficits compared to R. Pt also demonstrates decreased hamstring length on L compared to R. Pt demonstrates weakness at quads with difficulty maintaining TKE and reported fatigue with SLR. Pt has hx of low back dysfunction, therefore SLR on hold until adequate quad length present. Pt able to tolerate SAQ without production of pain. Pt able to tolerate heel slides though cued to avoid end range pain. Pt demonstrates wider base, along with lateral tibial rotation with 5x STS squats. Pt has upcoming trip which will require extensive walking . Pt will benefit from continued PT to progress L LE strength and mobility to improve tolerance to functional and recreational activities. Physical Therapy Plan Frequency and Duration Frequency of Treatment 2x/Week Duration of treatment (weeks) 4 Plan of Care Start Date 03/28/23 Plan of Care End Date 04/25/23 Therapeutic Interventions Therapeutic Interventions Balance Training,Gait Training ,Home Exercise Program,Joint Mobilizations,Manual Therapy, Neuromuscular Re-education, Patient/Caregiver Education, Self-Care/Home Management,Soft Tissue Mobilization,Taping, Therapeutic Activities, Therapeutic Exercises Modalities Cold Pack/Ice Massage,Electric Stimulation,Hot Packs, Ultrasound Next Visit Focus/Plan Next Note Type Treatment Note Next Visit Plan Trial e-stim at next tx session to improve quad strength. Add manual techniques to decrease pain and improve STM. Progress strength as tolerated Plan of Care Dates Plan of Care Start Date 03/28/23 Plan of Care End Date 04/25/23 Electronically Signed by: Tasha Ventura, PT 03/28/23 3818 If you are in agreement with this Plan of Care, please return a signed and dated copy. I have reviewed this Plan of Care and certify that the skilled therapy services above are required to meet the patient?s needs. Physician Signature Date Printed Name and Credentials Clinical Instructor Signature Printed Name and Credentials
--- NOTE | 2023-04-01 13:33 | PT.OTN ---
Current Diagnoses Unilateral primary osteoarthritis, left knee (04/01/23) Unspecified injury of left lower leg, initial encounter (04/01/23) Unspecified injury of left lower leg, subsequent encounter (04/01/23) Physical Therapy Treatment Note PT-OP-A Visit Information Start: 03/27/23 16:53 Freq: Status: Active Protocol: Document 04/01/23 13:33 AM (Rec: 04/01/23 16:30 AM [id number]) Out-Patient Physical Therapy Visit Information Visit Information Visit Type Treatment Note Visit Start Time 13:33 Visit Stop Time 14:18 Total Visit Minutes 45 Visit Number 2 Number of MECHANICAL LABORATORY TECHNICIAN Visits 0 PT-OP-B Current Condition Start: 03/27/23 16:53 Freq: Status: Active Protocol: Document 04/01/23 13:33 AM (Rec: 04/01/23 16:30 AM [id number]) Current Condition History of Current Condition Onset Date 3 weeks ago Current Complaints Pt with L medial knee pain that started 3 weeks ago. History of Current Condition Pt tore his R achilles tendon years ago and had failed surgical repair. Pt unable to do heel raise on R. Pt also has a R medial mensiscus tear. Pt notices gait faults and R muscle atrophy. Pt wondering if L knee pain is from years of compensation. Pt also has a hx of low back pain Prior Treatments and Tests Pt had an x-ray that showed arthritis. Possible medial meniscus tear? Accupuncture Future Testing and Treatments Planned Schedule cortisone injection for a few days before he goes on trip to [place] PT-OP-C Subjective Start: 03/27/23 16:53 Freq: Status: Active Protocol: Document 04/01/23 13:33 AM (Rec: 04/01/23 16:30 AM [id number]) OP-PT Subjective Patient Comments Patient Comments Pt reports pain around 5-6/10 today. Pt reports that his symptoms seem to fluctuate. Yesterday was a good day, though pt reports that he was not very active. Pt leaves for trip on 04/18/23 PT-OP-D Balance Start: 03/27/23 16:53 Freq: Status: Active Protocol: Document 03/28/23 13:32 AM (Rec: 03/28/23 15:04 AM [id number]) OP-PT Balance Assessment Standing Balance Static Standing Balance Ability Fair Dynamic Standing Balance Ability Fair Balance Tests Single Limb Standing Single Limb- Right 8 sec Single Limb- Left 12 sec Tandem Tandem Standing 30 sec ea Smith Fall Scale Copyright Permission PT-OP-E Functional Tests Start: 03/27/23 16:53 Freq: Status: Active Protocol: Document 03/28/23 13:32 AM (Rec: 03/28/23 15:04 AM [id number]) Functional Tests Five Times Sit to Stand Test Score 17.25 Comments Pt reports 4/10 pain PT-OP-F Manual Assessment Start: 03/27/23 16:53 Freq: Status: Active Protocol: Document 03/28/23 13:32 AM (Rec: 03/28/23 15:04 AM [id number]) Manual Assessments Soft Tissue Assessment Soft Tissue Mobility Assessment Quad and hamstring soft tissue restrictions Joint Mobility Assessment Joint Mobility Assessment Patellar mobility WNL PT-OP-G Mobility & Gait Start: 03/27/23 16:53 Freq: Status: Active Protocol: Document 03/28/23 13:32 AM (Rec: 03/28/23 15:04 AM [id number]) OP Gait Assessment Gait Gait Assistance Required: Independent Assistive Devices Assistive Device None Orthotic/Prosthetic Devices or Brace: Yes Gait Deviations General Gait Pattern Antalgic,Wide Based Gait Factors Limiting Gait Function Factors Limiting Gait Function Decreased Strength,Limited Range of Motion,Pain Comments Gait Comments Pt with step-length variances, decreased push-off on R PT-OP-J Posture/Palpation/Skin Start: 03/27/23 16:53 Freq: Status: Active Protocol: Document 03/28/23 13:32 AM (Rec: 03/28/23 15:04 AM [id number]) Posture Evaluation Position Standing Knee Posture (L) Genu Varus,(R) Genu Varus, (L) Ext. Tibial Torsion,(R) Ext. Tibial Torsion Palpation Assessment Location One Palpation Location L medial knee Palpation Findings Soft Tissue Tightness, Tenderness Palpation Details Joint line tenderness PT-OP-K Range of Motion Start: 03/27/23 16:53 Freq: Status: Active Protocol: Document 03/28/23 13:32 AM (Rec: 03/28/23 15:04 AM [id number]) Knee Goniometric Range of Motion Knee Right Knee ROM WFL Yes Patient Position Supine Flexion Active (degrees) 126 Extension Active (degrees) 0 Comments Hamstring 90/90: 25 deg Left Knee ROM WFL Yes Patient Position Supine Flexion Active (degrees) 120 Extension Active (degrees) 5 Comments Hamstring 90/90 36 deg PT-OP-L Special Tests Start: 03/27/23 16:53 Freq: Status: Active Protocol: Document 03/28/23 13:32 AM (Rec: 03/28/23 15:04 AM [id number]) Special Tests Knee Special Tests Danika Test Test Results + on R Comments Pain with IR and ER PT-OP-M Strength Start: 03/27/23 16:53 Freq: Status: Active Protocol: Document 03/28/23 13:32 AM (Rec: 03/28/23 15:26 AM [id number]) Hip Strength Hip Manual Muscle Testing Right Flexion (L2) 4- Good- Abduction 4- Good- External Rotation 4- Good- Left Flexion (L2) 4- Good- Abduction 4- Good- External Rotation 4- Good- Knee Strength Knee Manual Muscle Testing Right Flexion (S2) 4 Good Extension (L3) 4 Good Left Flexion (S2) 4 Good Extension (L3) 4 Good Comments Pt with difficulty maintaining TKE with SLR on L. Pt required cueing for lower abdominal control PT-OP-Q Treatments Start: 03/27/23 16:53 Freq: Status: Active Protocol: Document 04/01/23 13:33 AM (Rec: 04/01/23 16:30 AM [id number]) Cardio Equipment Recumbent Stepper (Sci-Fit) Duration (Minutes) 6 Resistance L2-2.8 Seat Position 11 Therapeutic Exercises Supine Exercises 4 Supine Exercise Name Heelslides Side left Reps/Minutes x10 3 Supine Exercise Name SLR Side left Reps/Minutes x10 2 Supine Exercise Name Heel slide Side left Reps/Minutes x10 1 Supine Exercise Name SAQ Side left Resistance 2# Equipment Used foam roll under knee Reps/Minutes 20x3 sec hold Sidelying Exercises 1 Sidelying Exercise Name Clamshell Side left Resistance OTB Reps/Minutes x10 Comments cues for abdominal control Standing Exercises 3 Standing Exercise Name calf stretch Side bilateral Reps/Minutes 2x30 sec 2 Standing Exercise Name Standing hip abd diagonal Side bilateral Resistance OTB Equipment Used theraband Reps/Minutes 2x10 Comments x10 without band, x10 with 1 Standing Exercise Name Hamstring stretch Side bilateral Equipment Used at step Reps/Minutes 2x30 sec ea LE Manual Therapy Treatment Soft Tissue Mobilization L knee Body Location L ITB, adductors, hamstrings, quads Mobilization Type Myofascial Release Intensity/Depth Moderate Body Position Hooklying Joint Mobilizations Patellar mob Joint Patella Direction inf/med/sup Grade II Body Position Supine Reps/Duration x2 min PT-OP-T Assessment and Plan Start: 03/27/23 16:53 Freq: Status: Active Protocol: Document 04/01/23 13:33 AM (Rec: 04/01/23 16:30 AM [id number]) Physical Therapy Assessment Impairments Impairments Activity Tolerance,Balance, Edema,Functional Activities, Functional Mobility,Gait,Pain, ROM,Soft Tissue Mobility, Strength Goals Seven Impairment HEP Impairment Pt unsure of appropriate exercises for HEP. Care Home Goal (LTG) Pt independent with HEP LTG Duration 4 weeks Six Impairment Walking Impairment Pt reports that he has stopped walking for exercise secondary to increase in knee pain. Care Home Goal (LTG) Pt able to return to his walking exercise program and able to walk 7,500 steps without production of increased L knee pain. LTG Duration 4 weeks Five Impairment Biking Impairment Pt reports that he is unable to bike without increase in pain. Care Home Goal (LTG) Pt to report that he is able to return to biking without increase in L knee pain. LTG Duration 4 weeks Four Impairment Pain rating Impairment Pt with 6/10 pain when standing today. Short Term Goal (STG) Pt to report 3/10 pain when standing. STG Duration 2 weeks Temper Mill Operator Goal (LTG) Pt to report <1/10 pain when standing. LTG Duration 4 weeks Three Impairment 5x STS test Impairment Pt able to complete 5 STS squats in 17.25 seconds Short Term Goal (STG) Pt able to complete 5 STS squats in 15 seconds. STG Duration 2 weeks Care Home Goal (LTG) Pt able complete 5 STS squats in 12 seconds LTG Duration 4 weeks Two Impairment Balance Impairment Pt able to maintain L SLS for 12 seconds. Short Term Goal (STG) Pt able to maintain L SLS for 16 seconds STG Duration 2 weeks Care Home Goal (LTG) Pt able to maintain SLS for 20 sec LTG Duration 4 weeks One Impairment LEFS Impairment Pt with 32/80 on LEFS Temper Mill Operator Goal (LTG) PT with 60/80 on LEFS LTG Duration 4 weeks Progress Towards Goals Progress Towards Goals Progressing Toward Goals Assessment Summary Assessment Pt tolerated tx session well today. Pt with reports of knee clicking during tx session, though no reports of increase in symptoms. Pt does require cueing to avoid pain with end- range knee flexion during heel slides. Pt demonstrated tenderness along adductors, ITB and quads with STM. Pt with improved ability to do SLR today, compared to previous session. Pt fatigued at glutes with exercises. Pt will return to PT later this week to continue to progress L LE strength and mobility to decrease pain with functional/ recreational tasks. Physical Therapy Plan Frequency and Duration Frequency of Treatment 2x/Week Duration of treatment (weeks) 4 Plan of Care Start Date 03/28/23 Plan of Care End Date 04/25/23 Therapeutic Interventions Therapeutic Interventions Balance Training,Gait Training ,Home Exercise Program,Joint Mobilizations,Manual Therapy, Neuromuscular Re-education, Patient/Caregiver Education, Self-Care/Home Management,Soft Tissue Mobilization,Taping, Therapeutic Activities, Therapeutic Exercises Modalities Cold Pack/Ice Massage,Electric Stimulation,Hot Packs, Ultrasound Next Visit Focus/Plan Next Note Type Treatment Note Next Visit Plan Continue to progress knee mobility and strength
--- NOTE | 2023-04-04 13:33 | PT.OTN ---
Current Diagnoses Unilateral primary osteoarthritis, left knee (04/04/23) Unspecified injury of left lower leg, initial encounter (04/04/23) Unspecified injury of left lower leg, subsequent encounter (04/04/23) Physical Therapy Treatment Note PT-OP-A Visit Information Start: 03/27/23 16:53 Freq: Status: Active Protocol: Document 04/04/23 13:33 AM (Rec: 04/04/23 17:14 AM [id number]) Out-Patient Physical Therapy Visit Information Visit Information Visit Type Treatment Note Visit Start Time 13:33 Visit Stop Time 14:15 Total Visit Minutes 42 PT-OP-B Current Condition Start: 03/27/23 16:53 Freq: Status: Active Protocol: Document 04/04/23 13:33 AM (Rec: 04/04/23 17:14 AM [id number]) Current Condition History of Current Condition Onset Date 3 weeks ago Current Complaints Pt with L medial knee pain that started 3 weeks ago. History of Current Condition Pt tore his R achilles tendon years ago and had failed surgical repair. Pt unable to do heel raise on R. Pt also has a R medial mensiscus tear. Pt notices gait faults and R muscle atrophy. Pt wondering if L knee pain is from years of compensation. Pt also has a hx of low back pain Prior Treatments and Tests Pt had an x-ray that showed arthritis. Possible medial meniscus tear? Accupuncture Future Testing and Treatments Planned Schedule cortisone injection for a few days before he goes on trip to [place] PT-OP-C Subjective Start: 03/27/23 16:53 Freq: Status: Active Protocol: Document 04/04/23 13:33 AM (Rec: 04/04/23 17:14 AM [id number]) OP-PT Subjective Patient Comments Patient Comments Pt reports similar pain complaints. Pt reports that he feels that ice helps a little bit. Pt reports pain at 5/10 today. Pt is going to try to walk [place] this [place]. Patient Reported Progress Same PT-OP-D Balance Start: 03/27/23 16:53 Freq: Status: Active Protocol: Document 03/28/23 13:32 AM (Rec: 03/28/23 15:04 AM [id number]) OP-PT Balance Assessment Standing Balance Static Standing Balance Ability Fair Dynamic Standing Balance Ability Fair Balance Tests Single Limb Standing Single Limb- Right 8 sec Single Limb- Left 12 sec Tandem Tandem Standing 30 sec ea Smith Fall Scale Copyright Permission PT-OP-E Functional Tests Start: 03/27/23 16:53 Freq: Status: Active Protocol: Document 03/28/23 13:32 AM (Rec: 03/28/23 15:04 AM [id number]) Functional Tests Five Times Sit to Stand Test Score 17.25 Comments Pt reports 4/10 pain PT-OP-F Manual Assessment Start: 03/27/23 16:53 Freq: Status: Active Protocol: Document 03/28/23 13:32 AM (Rec: 03/28/23 15:04 AM [id number]) Manual Assessments Soft Tissue Assessment Soft Tissue Mobility Assessment Quad and hamstring soft tissue restrictions Joint Mobility Assessment Joint Mobility Assessment Patellar mobility WNL PT-OP-G Mobility & Gait Start: 03/27/23 16:53 Freq: Status: Active Protocol: Document 03/28/23 13:32 AM (Rec: 03/28/23 15:04 AM [id number]) OP Gait Assessment Gait Gait Assistance Required: Independent Assistive Devices Assistive Device None Orthotic/Prosthetic Devices or Brace: Yes Gait Deviations General Gait Pattern Antalgic,Wide Based Gait Factors Limiting Gait Function Factors Limiting Gait Function Decreased Strength,Limited Range of Motion,Pain Comments Gait Comments Pt with step-length variances, decreased push-off on R PT-OP-J Posture/Palpation/Skin Start: 03/27/23 16:53 Freq: Status: Active Protocol: Document 03/28/23 13:32 AM (Rec: 03/28/23 15:04 AM [id number]) Posture Evaluation Position Standing Knee Posture (L) Genu Varus,(R) Genu Varus, (L) Ext. Tibial Torsion,(R) Ext. Tibial Torsion Palpation Assessment Location One Palpation Location L medial knee Palpation Findings Soft Tissue Tightness, Tenderness Palpation Details Joint line tenderness PT-OP-K Range of Motion Start: 03/27/23 16:53 Freq: Status: Active Protocol: Document 03/28/23 13:32 AM (Rec: 03/28/23 15:04 AM [id number]) Knee Goniometric Range of Motion Knee Right Knee ROM WFL Yes Patient Position Supine Flexion Active (degrees) 126 Extension Active (degrees) 0 Comments Hamstring 90/90: 25 deg Left Knee ROM WFL Yes Patient Position Supine Flexion Active (degrees) 120 Extension Active (degrees) 5 Comments Hamstring 90/90 36 deg PT-OP-L Special Tests Start: 03/27/23 16:53 Freq: Status: Active Protocol: Document 03/28/23 13:32 AM (Rec: 03/28/23 15:04 AM [id number]) Special Tests Knee Special Tests Danika Test Test Results + on R Comments Pain with IR and ER PT-OP-M Strength Start: 03/27/23 16:53 Freq: Status: Active Protocol: Document 03/28/23 13:32 AM (Rec: 03/28/23 15:26 AM [id number]) Hip Strength Hip Manual Muscle Testing Right Flexion (L2) 4- Good- Abduction 4- Good- External Rotation 4- Good- Left Flexion (L2) 4- Good- Abduction 4- Good- External Rotation 4- Good- Knee Strength Knee Manual Muscle Testing Right Flexion (S2) 4 Good Extension (L3) 4 Good Left Flexion (S2) 4 Good Extension (L3) 4 Good Comments Pt with difficulty maintaining TKE with SLR on L. Pt required cueing for lower abdominal control PT-OP-Q Treatments Start: 03/27/23 16:53 Freq: Status: Active Protocol: Document 04/04/23 13:33 AM (Rec: 04/04/23 17:14 AM [id number]) Cardio Equipment Recumbent Stepper (Sci-Fit) Duration (Minutes) 5 Resistance L2-2.8 Seat Position 11 Gym Equipment Shuttle Recovery leg press Resistance 75# Akash, 50# unilateral Reps/Time x1 min BLE, x1 min ea LE Therapeutic Exercises Supine Exercises 3 Supine Exercise Name SLR Side left Reps/Minutes x10 1 Supine Exercise Name SAQ Side left Resistance 4# Equipment Used foam roll under knee Reps/Minutes 20x3 sec hold Sidelying Exercises Sidelying SLR Sidelying Exercise Name Sideling SLR Side left Reps/Minutes x10 1 Sidelying Exercise Name Clamshell Side left Resistance OTB Reps/Minutes x10 Comments cues for abdominal control Standing Exercises 1 Standing Exercise Name hamstring stretch Side bilateral Equipment Used at step Reps/Minutes 2x30 sec ea LE Manual Therapy Treatment Soft Tissue Mobilization L knee Body Location L ITB, adductors, hamstrings, quads Mobilization Type Myofascial Release Intensity/Depth Moderate Body Position Hooklying PT-OP-T Assessment and Plan Start: 03/27/23 16:53 Freq: Status: Active Protocol: Document 04/04/23 13:33 AM (Rec: 04/04/23 17:14 AM [id number]) Physical Therapy Assessment Impairments Impairments Activity Tolerance,Balance, Edema,Functional Activities, Functional Mobility,Gait,Pain, ROM,Soft Tissue Mobility, Strength Goals Seven Impairment HEP Impairment Pt unsure of appropriate exercises for HEP. Usp Goal (LTG) Pt independent with HEP LTG Duration 4 weeks Six Impairment Walking Impairment Pt reports that he has stopped walking for exercise secondary to increase in knee pain. Correctional Security Officer Goal (LTG) Pt able to return to his walking exercise program and able to walk 7,500 steps without production of increased L knee pain. LTG Duration 4 weeks Five Impairment Biking Impairment Pt reports that he is unable to bike without increase in pain. Correctional Security Officer Goal (LTG) Pt to report that he is able to return to biking without increase in L knee pain. LTG Duration 4 weeks Four Impairment Pain rating Impairment Pt with 6/10 pain when standing today. Short Term Goal (STG) Pt to report 3/10 pain when standing. STG Duration 2 weeks Usp Goal (LTG) Pt to report <1/10 pain when standing. LTG Duration 4 weeks Three Impairment 5x STS test Impairment Pt able to complete 5 STS squats in 17.25 seconds Short Term Goal (STG) Pt able to complete 5 STS squats in 15 seconds. STG Duration 2 weeks Usp Goal (LTG) Pt able complete 5 STS squats in 12 seconds LTG Duration 4 weeks Two Impairment Balance Impairment Pt able to maintain L SLS for 12 seconds. Short Term Goal (STG) Pt able to maintain L SLS for 16 seconds STG Duration 2 weeks Usp Goal (LTG) Pt able to maintain SLS for 20 sec LTG Duration 4 weeks One Impairment LEFS Impairment Pt with 32/80 on LEFS Usp Goal (LTG) PT with 60/80 on LEFS LTG Duration 4 weeks Assessment Summary Assessment Pt continues to have discomfort with end range knee flexion. Pt tolerated strengthening program today with minimal increase in symptoms. Pt with tenderness along medial hamstring and adductors with STM. Pt would benefit from continued PT to progress knee mobility and strength to improve tolerance to functional tasks. Physical Therapy Plan Frequency and Duration Frequency of Treatment 2x/Week Duration of treatment (weeks) 4 Plan of Care Start Date 03/28/23 Plan of Care End Date 04/25/23 Therapeutic Interventions Therapeutic Interventions Balance Training,Gait Training ,Home Exercise Program,Joint Mobilizations,Manual Therapy, Neuromuscular Re-education, Patient/Caregiver Education, Self-Care/Home Management,Soft Tissue Mobilization,Taping, Therapeutic Activities, Therapeutic Exercises Modalities Cold Pack/Ice Massage,Electric Stimulation,Hot Packs, Ultrasound Next Visit Focus/Plan Next Note Type Treatment Note Next Visit Plan Continue to progress knee mobility and strength, add hip flexor stretch
--- NOTE | 2023-04-09 13:31 | PT.OTN ---
Current Diagnoses Unilateral primary osteoarthritis, left knee (04/09/23) Unspecified injury of left lower leg, initial encounter (04/09/23) Unspecified injury of left lower leg, subsequent encounter (04/09/23) Physical Therapy Treatment Note PT-OP-A Visit Information Start: 03/27/23 16:53 Freq: Status: Active Protocol: Document 04/09/23 13:31 AM (Rec: 04/09/23 16:05 AM [id number]) Out-Patient Physical Therapy Visit Information Visit Information Visit Type Treatment Note Visit Start Time 13:31 Visit Stop Time 14:20 Total Visit Minutes 49 Visit Number 4 Number of BUSINESS SERVICES MANAGER Visits 0 PT-OP-B Current Condition Start: 03/27/23 16:53 Freq: Status: Active Protocol: Document 04/09/23 13:31 AM (Rec: 04/09/23 16:05 AM [id number]) Current Condition History of Current Condition Onset Date 3 weeks ago Current Complaints Pt with L medial knee pain that started 3 weeks ago. History of Current Condition Pt tore his R achilles tendon years ago and had failed surgical repair. Pt unable to do heel raise on R. Pt also has a R medial mensiscus tear. Pt notices gait faults and R muscle atrophy. Pt wondering if L knee pain is from years of compensation. Pt also has a hx of low back pain Prior Treatments and Tests Pt had an x-ray that showed arthritis. Possible medial meniscus tear? Accupuncture Future Testing and Treatments Planned Schedule cortisone injection for a few days before he goes on trip to [place] PT-OP-C Subjective Start: 03/27/23 16:53 Freq: Status: Active Protocol: Document 04/09/23 13:31 AM (Rec: 04/09/23 16:05 AM [id number]) OP-PT Subjective Patient Comments Patient Comments Pt reports pain at 5/10 today. Pt reports that symptoms vary throughout the day. Pt reports symptoms were not too bad with walking on the [employer] trail this weekend. Pt is concerned about being able to walk on uneven terrain and trails. Pt reports improvement is slow. PT-OP-D Balance Start: 03/27/23 16:53 Freq: Status: Active Protocol: Document 03/28/23 13:32 AM (Rec: 03/28/23 15:04 AM [id number]) OP-PT Balance Assessment Standing Balance Static Standing Balance Ability Fair Dynamic Standing Balance Ability Fair Balance Tests Single Limb Standing Single Limb- Right 8 sec Single Limb- Left 12 sec Tandem Tandem Standing 30 sec ea Smith Fall Scale Copyright Permission PT-OP-E Functional Tests Start: 03/27/23 16:53 Freq: Status: Active Protocol: Document 03/28/23 13:32 AM (Rec: 03/28/23 15:04 AM [id number]) Functional Tests Five Times Sit to Stand Test Score 17.25 Comments Pt reports 4/10 pain PT-OP-F Manual Assessment Start: 03/27/23 16:53 Freq: Status: Active Protocol: Document 03/28/23 13:32 AM (Rec: 03/28/23 15:04 AM [id number]) Manual Assessments Soft Tissue Assessment Soft Tissue Mobility Assessment Quad and hamstring soft tissue restrictions Joint Mobility Assessment Joint Mobility Assessment Patellar mobility WNL PT-OP-G Mobility & Gait Start: 03/27/23 16:53 Freq: Status: Active Protocol: Document 03/28/23 13:32 AM (Rec: 03/28/23 15:04 AM [id number]) OP Gait Assessment Gait Gait Assistance Required: Independent Assistive Devices Assistive Device None Orthotic/Prosthetic Devices or Brace: Yes Gait Deviations General Gait Pattern Antalgic,Wide Based Gait Factors Limiting Gait Function Factors Limiting Gait Function Decreased Strength,Limited Range of Motion,Pain Comments Gait Comments Pt with step-length variances, decreased push-off on R PT-OP-J Posture/Palpation/Skin Start: 03/27/23 16:53 Freq: Status: Active Protocol: Document 03/28/23 13:32 AM (Rec: 03/28/23 15:04 AM [id number]) Posture Evaluation Position Standing Knee Posture (L) Genu Varus,(R) Genu Varus, (L) Ext. Tibial Torsion,(R) Ext. Tibial Torsion Palpation Assessment Location One Palpation Location L medial knee Palpation Findings Soft Tissue Tightness, Tenderness Palpation Details Joint line tenderness PT-OP-K Range of Motion Start: 03/27/23 16:53 Freq: Status: Active Protocol: Document 03/28/23 13:32 AM (Rec: 03/28/23 15:04 AM [id number]) Knee Goniometric Range of Motion Knee Right Knee ROM WFL Yes Patient Position Supine Flexion Active (degrees) 126 Extension Active (degrees) 0 Comments Hamstring 90/90: 25 deg Left Knee ROM WFL Yes Patient Position Supine Flexion Active (degrees) 120 Extension Active (degrees) 5 Comments Hamstring 90/90 36 deg PT-OP-L Special Tests Start: 03/27/23 16:53 Freq: Status: Active Protocol: Document 03/28/23 13:32 AM (Rec: 03/28/23 15:04 AM [id number]) Special Tests Knee Special Tests Danika Test Test Results + on R Comments Pain with IR and ER PT-OP-M Strength Start: 03/27/23 16:53 Freq: Status: Active Protocol: Document 03/28/23 13:32 AM (Rec: 03/28/23 15:26 AM [id number]) Hip Strength Hip Manual Muscle Testing Right Flexion (L2) 4- Good- Abduction 4- Good- External Rotation 4- Good- Left Flexion (L2) 4- Good- Abduction 4- Good- External Rotation 4- Good- Knee Strength Knee Manual Muscle Testing Right Flexion (S2) 4 Good Extension (L3) 4 Good Left Flexion (S2) 4 Good Extension (L3) 4 Good Comments Pt with difficulty maintaining TKE with SLR on L. Pt required cueing for lower abdominal control PT-OP-Q Treatments Start: 03/27/23 16:53 Freq: Status: Active Protocol: Document 04/09/23 13:31 AM (Rec: 04/09/23 16:05 AM [id number]) Cardio Equipment Recumbent Stepper (Sci-Fit) Duration (Minutes) 6 Resistance L2 Seat Position 11 Gym Equipment Shuttle Recovery leg press Resistance 75# Akash, 50# unilateral Reps/Time x1 min BLE, x1 min ea LE Therapeutic Exercises Standing Exercises 4 Standing Exercise Name side steps Side bilateral Resistance OTB Reps/Minutes 2x20 ft 3 Standing Exercise Name Standing hip extension Resistance OTB Reps/Minutes 2x15 2 Standing Exercise Name Standing hip abd diagonal Side bilateral Resistance OTB Equipment Used theraband Reps/Minutes 2x15 1 Standing Exercise Name hamstring stretch Side bilateral Equipment Used at step Reps/Minutes 2x30 sec ea LE Other Exercises Kneeling hip flexor Other Exercise Name Kneeling hip flexor stretch Side left Reps/Minutes 1x30 sec Comments Hamstring cramping reported Manual Therapy Treatment Soft Tissue Mobilization L knee Body Location L ITB, adductors, hamstrings, quads Mobilization Type Myofascial Release Intensity/Depth Moderate Body Position Hooklying Joint Mobilizations Patellar mob Joint Patellar mob Direction inf, sup, med Grade III Body Position Supine PT-OP-T Assessment and Plan Start: 03/27/23 16:53 Freq: Status: Active Protocol: Document 04/09/23 13:31 AM (Rec: 04/09/23 16:05 AM [id number]) Physical Therapy Assessment Impairments Impairments Activity Tolerance,Balance, Edema,Functional Activities, Functional Mobility,Gait,Pain, ROM,Soft Tissue Mobility, Strength Goals Seven Impairment HEP Impairment Pt unsure of appropriate exercises for HEP. Half-Way Goal (LTG) Pt independent with HEP LTG Duration 4 weeks Six Impairment Walking Impairment Pt reports that he has stopped walking for exercise secondary to increase in knee pain. Merchandising Director Goal (LTG) Pt able to return to his walking exercise program and able to walk 7,500 steps without production of increased L knee pain. LTG Duration 4 weeks Five Impairment Biking Impairment Pt reports that he is unable to bike without increase in pain. Merchandising Director Goal (LTG) Pt to report that he is able to return to biking without increase in L knee pain. LTG Duration 4 weeks Four Impairment Pain rating Impairment Pt with 6/10 pain when standing today. Short Term Goal (STG) Pt to report 3/10 pain when standing. STG Duration 2 weeks Half-Way Goal (LTG) Pt to report <1/10 pain when standing. LTG Duration 4 weeks Three Impairment 5x STS test Impairment Pt able to complete 5 STS squats in 17.25 seconds Short Term Goal (STG) Pt able to complete 5 STS squats in 15 seconds. STG Duration 2 weeks Merchandising Director Goal (LTG) Pt able complete 5 STS squats in 12 seconds LTG Duration 4 weeks Two Impairment Balance Impairment Pt able to maintain L SLS for 12 seconds. Short Term Goal (STG) Pt able to maintain L SLS for 16 seconds STG Duration 2 weeks Half-Way Goal (LTG) Pt able to maintain SLS for 20 sec LTG Duration 4 weeks One Impairment LEFS Impairment Pt with 32/80 on LEFS Half-Way Goal (LTG) PT with 60/80 on LEFS LTG Duration 4 weeks Assessment Summary Assessment Pt continues to have discomfort at adductors with STM. Pt also with reported tenderness at patellar tendon with flexion activities today. Pt with reported fatigue of glutes with lateral movements. Pt will see PT for 1 more visit before trip. Will assess goals and HEP at next session . Physical Therapy Plan Frequency and Duration Frequency of Treatment 2x/Week Duration of treatment (weeks) 4 Plan of Care Start Date 03/28/23 Plan of Care End Date 04/25/23 Therapeutic Interventions Therapeutic Interventions Balance Training,Gait Training ,Home Exercise Program,Joint Mobilizations,Manual Therapy, Neuromuscular Re-education, Patient/Caregiver Education, Self-Care/Home Management,Soft Tissue Mobilization,Taping, Therapeutic Activities, Therapeutic Exercises Modalities Cold Pack/Ice Massage,Electric Stimulation,Hot Packs, Ultrasound Next Visit Focus/Plan Next Note Type Treatment Note Next Visit Plan Continue to progress knee mobility and strength, add hip flexor stretch, assess goals, progress HEP
--- NOTE | 2023-04-15 13:33 | PT.OTN ---
Current Diagnoses Unilateral primary osteoarthritis, left knee (04/15/23) Unspecified injury of left lower leg, subsequent encounter (04/15/23) Physical Therapy Treatment Note PT-OP-A Visit Information Start: 03/27/23 16:53 Freq: Status: Active Protocol: Document 04/15/23 13:33 AM (Rec: 04/15/23 14:26 AM [id number]) Out-Patient Physical Therapy Visit Information Visit Information Visit Type Discharge Summary Visit Start Time 13:33 Visit Stop Time 14:20 Total Visit Minutes 47 Visit Number 5 PT-OP-B Current Condition Start: 03/27/23 16:53 Freq: Status: Active Protocol: Document 04/15/23 13:33 AM (Rec: 04/15/23 14:26 AM [id number]) Current Condition History of Current Condition Onset Date 3 weeks ago Current Complaints Pt with L medial knee pain that started 3 weeks ago. History of Current Condition Pt tore his R achilles tendon years ago and had failed surgical repair. Pt unable to do heel raise on R. Pt also has a R medial mensiscus tear. Pt notices gait faults and R muscle atrophy. Pt wondering if L knee pain is from years of compensation. Pt also has a hx of low back pain Prior Treatments and Tests Pt had an x-ray that showed arthritis. Possible medial meniscus tear? Accupuncture Future Testing and Treatments Planned Schedule cortisone injection for a few days before he goes on trip to [place] PT-OP-C Subjective Start: 03/27/23 16:53 Freq: Status: Active Protocol: Document 04/15/23 13:33 AM (Rec: 04/15/23 14:26 AM [id number]) OP-PT Subjective Patient Comments Patient Comments Pt reports that he feels that his pain is a little less constant. Pt reports that he has been wearing a accounting officer compression/knee brace. PT-OP-D Balance Start: 03/27/23 16:53 Freq: Status: Active Protocol: Document 03/28/23 13:32 AM (Rec: 03/28/23 15:04 AM [id number]) OP-PT Balance Assessment Standing Balance Static Standing Balance Ability Fair Dynamic Standing Balance Ability Fair Balance Tests Single Limb Standing Single Limb- Right 8 sec Single Limb- Left 12 sec Tandem Tandem Standing 30 sec ea Smith Fall Scale Copyright Permission PT-OP-E Functional Tests Start: 03/27/23 16:53 Freq: Status: Active Protocol: Document 03/28/23 13:32 AM (Rec: 03/28/23 15:04 AM [id number]) Functional Tests Five Times Sit to Stand Test Score 17.25 Comments Pt reports 4/10 pain PT-OP-F Manual Assessment Start: 03/27/23 16:53 Freq: Status: Active Protocol: Document 03/28/23 13:32 AM (Rec: 03/28/23 15:04 AM [id number]) Manual Assessments Soft Tissue Assessment Soft Tissue Mobility Assessment Quad and hamstring soft tissue restrictions Joint Mobility Assessment Joint Mobility Assessment Patellar mobility WNL PT-OP-G Mobility & Gait Start: 03/27/23 16:53 Freq: Status: Active Protocol: Document 03/28/23 13:32 AM (Rec: 03/28/23 15:04 AM [id number]) OP Gait Assessment Gait Gait Assistance Required: Independent Assistive Devices Assistive Device None Orthotic/Prosthetic Devices or Brace: Yes Gait Deviations General Gait Pattern Antalgic,Wide Based Gait Factors Limiting Gait Function Factors Limiting Gait Function Decreased Strength,Limited Range of Motion,Pain Comments Gait Comments Pt with step-length variances, decreased push-off on R PT-OP-J Posture/Palpation/Skin Start: 03/27/23 16:53 Freq: Status: Active Protocol: Document 03/28/23 13:32 AM (Rec: 03/28/23 15:04 AM [id number]) Posture Evaluation Position Standing Knee Posture (L) Genu Varus,(R) Genu Varus, (L) Ext. Tibial Torsion,(R) Ext. Tibial Torsion Palpation Assessment Location One Palpation Location L medial knee Palpation Findings Soft Tissue Tightness, Tenderness Palpation Details Joint line tenderness PT-OP-K Range of Motion Start: 03/27/23 16:53 Freq: Status: Active Protocol: Document 03/28/23 13:32 AM (Rec: 03/28/23 15:04 AM [id number]) Knee Goniometric Range of Motion Knee Right Knee ROM WFL Yes Patient Position Supine Flexion Active (degrees) 126 Extension Active (degrees) 0 Comments Hamstring 90/90: 25 deg Left Knee ROM WFL Yes Patient Position Supine Flexion Active (degrees) 120 Extension Active (degrees) 5 Comments Hamstring 90/90 36 deg PT-OP-L Special Tests Start: 03/27/23 16:53 Freq: Status: Active Protocol: Document 03/28/23 13:32 AM (Rec: 03/28/23 15:04 AM [id number]) Special Tests Knee Special Tests Danika Test Test Results + on R Comments Pain with IR and ER PT-OP-M Strength Start: 03/27/23 16:53 Freq: Status: Active Protocol: Document 03/28/23 13:32 AM (Rec: 03/28/23 15:26 AM [id number]) Hip Strength Hip Manual Muscle Testing Right Flexion (L2) 4- Good- Abduction 4- Good- External Rotation 4- Good- Left Flexion (L2) 4- Good- Abduction 4- Good- External Rotation 4- Good- Knee Strength Knee Manual Muscle Testing Right Flexion (S2) 4 Good Extension (L3) 4 Good Left Flexion (S2) 4 Good Extension (L3) 4 Good Comments Pt with difficulty maintaining TKE with SLR on L. Pt required cueing for lower abdominal control PT-OP-Q Treatments Start: 03/27/23 16:53 Freq: Status: Active Protocol: Document 04/15/23 13:33 AM (Rec: 04/15/23 14:26 AM [id number]) Cardio Equipment Recumbent Stepper (Sci-Fit) Duration (Minutes) 6 Resistance L2 Seat Position 11 Gym Equipment Shuttle Recovery leg press Resistance 100# Akash, 50# unilateral Reps/Time x1 min BLE, x1 min ea LE Therapeutic Exercises Standing Exercises 4 Standing Exercise Name side steps Side bilateral Resistance GTB Reps/Minutes 2x20 ft 3 Standing Exercise Name Standing hip extension Resistance GTB Reps/Minutes x10 2 Standing Exercise Name Standing hip abd diagonal Side bilateral Resistance GTB Equipment Used theraband Reps/Minutes x10 Manual Therapy Treatment Soft Tissue Mobilization L knee Body Location patellar tendon, distal/medial quad and adductors Mobilization Type Instrument Assisted,Myofascial Release Intensity/Depth Moderate Body Position Hooklying PT-OP-T Assessment and Plan Start: 03/27/23 16:53 Freq: Status: Active Protocol: Document 04/15/23 13:33 AM (Rec: 04/15/23 14:26 AM [id number]) Physical Therapy Assessment Impairments Impairments Activity Tolerance,Balance, Edema,Functional Activities, Functional Mobility,Gait,Pain, ROM,Soft Tissue Mobility, Strength Goals Seven Impairment HEP Impairment Pt unsure of appropriate exercises for HEP. Assurance Analyst Goal (LTG) Pt independent with HEP. Goal met 04/15/23 LTG Duration 4 weeks Six Impairment Walking Impairment Pt reports that he has stopped walking for exercise secondary to increase in knee pain. Group Home Goal (LTG) Pt able to return to his walking exercise program and able to walk 7,500 steps without production of increased L knee pain. Goal Unmet as of 04/15/23: Pt has not increased his steps. Pt has taken up to 7000 at most, though continues to have intermittent pain. LTG Duration 4 weeks Five Impairment Biking Impairment Pt reports that he is unable to bike without increase in pain. Group Home Goal (LTG) Pt to report that he is able to return to biking without increase in L knee pain. Goal Unmet-Pt has not tried biking as of 04/15/23 LTG Duration 4 weeks Four Impairment Pain rating Impairment Pt with 6/10 pain when standing today. Short Term Goal (STG) Pt to report 3/10 pain when standing. STG Duration 2 weeks Group Home Goal (LTG) Pt to report <1/10 pain when standing. Goal unmet as of 04/15/23. Pt reports pain at 5/10 LTG Duration 4 weeks Three Impairment 5x STS test Impairment Pt able to complete 5 STS squats in 17.25 seconds Short Term Goal (STG) Pt able to complete 5 STS squats in 15 seconds. STG Duration 2 weeks Assurance Analyst Goal (LTG) Pt able complete 5 STS squats in 12 seconds. Goal met with 9.81 sec on 04/15 LTG Duration 4 weeks Two Impairment Balance Impairment Pt able to maintain L SLS for 12 seconds. Short Term Goal (STG) Pt able to maintain L SLS for 16 seconds STG Duration 2 weeks Assurance Analyst Goal (LTG) Pt able to maintain SLS for 20 sec Goal met: Pt able to hold for 30 seconds on 04/15/23 LTG Duration 4 weeks One Impairment LEFS Impairment Pt with 32/80 on LEFS Assurance Analyst Goal (LTG) PT with 60/80 on LEFS Goal unmet, though scored 50/ 80, which is significantly improved on 04/15/23 LTG Duration 4 weeks Assessment Summary Assessment Pt met 3/7 goals at d/c today. Pt with good understanding of HEP and vocalized that he will continue. Pt will have a cortisone injection tomorrow and will then be taking 3 week trip. Pt will contact PT upon return to start PT if symptoms continue or worsen. Physical Therapy Plan Frequency and Duration Frequency of Treatment 2x/Week Duration of treatment (weeks) 4 Plan of Care Start Date 03/28/23 Plan of Care End Date 04/25/23 Therapeutic Interventions Therapeutic Interventions Balance Training,Gait Training ,Home Exercise Program,Joint Mobilizations,Manual Therapy, Neuromuscular Re-education, Patient/Caregiver Education, Self-Care/Home Management,Soft Tissue Mobilization,Taping, Therapeutic Activities, Therapeutic Exercises Modalities Cold Pack/Ice Massage,Electric Stimulation,Hot Packs, Ultrasound Next Visit Focus/Plan Next Note Type Discharge Summary Next Visit Plan Pt d/c today
== END 2023-04-19 09:15 ==
LOC: PHYS 13:30
PROVIDERS: Family Provider Family Medicine; PCP Family Medicine; Referring Provider Physician Assistant; Visit Provider Physician Assistant
DX: S89.92XD Unspecified injury of left lower leg, subsequent encounter (principal); M17.12 Unilateral primary osteoarthritis, left knee
CPT/HCPCS: 97110; 97140; 97161

== ENCOUNTER → 2023-05-30 08:09 | Outpatient (CLI) | payer MEDICARE, BC, SELFPAY ==
--- NOTE | 2023-05-30 08:20 | DI.ECHO.S_ITS ---
[facility]---------+ [facility] +---------+ : : [address] : : : : [id number] : : : : Phone: [phone]+ Echocardiogram Report + + :Name: IVAN LLAMAS Study Date: 05/30/2023 Height: 69 in : :[facility] ReadingLocation: Weight: 195 lb : : Gender: Male BSA: 2.0 m2 : :: 1950 Age: 72 yrs BP: 171/90 mmHg: :Reason For Study: Hypertension : :Ordering Physician: KEL MILAN Performed By: Winsome Calvillo : :Referring: KEL MILAN : + + Interpretation Summary The left ventricle is normal in size. The left ventricular ejection fraction is normal. The ejection fraction is estimated to be 60-65%. The right ventricle is normal in size and function. No significant valvular pathology seen. The IVC is of normal diameter and collapses greater than 50% with a sniff. This suggests a low right atrial pressure of 3 mm Hg. Procedure: A two-dimensional transthoracic echocardiogram with color flow and Doppler was performed. The study quality was technically adequate. There is no prior echocardiogram noted for this patient. The patient was in normal sinus rhythm during the exam. Left Ventricle: The left ventricle is normal in size. Left ventricular wall thickness is mildly increased. There is mild concentric left ventricular hypertrophy. There is no thrombus. The ejection fraction is estimated to be 60-65%. The left ventricular ejection fraction is normal. There are no focal wall motion abnormalities. Diastolic parameters suggest a relaxation abnormality of the left ventricle, consistent with probable normal filling pressures. Right Ventricle: The right ventricle is normal in size and function. Atria: The left atrial size is normal. Right atrial size is normal. There is no Doppler evidence for an interatrial shunt. Mitral Valve: The mitral valve is normal. There is systolic anterior motion of the chordal apparatus. There is no mitral valve stenosis. There is trace mitral regurgitation. Aortic Valve: The aortic valve is trileaflet. There is mild aortic valve sclerosis. There is no aortic valve stenosis. Tricuspid Valve: The tricuspid valve is normal. There is no tricuspid stenosis. There is trace tricuspid regurgitation. Pulmonary artery pressures cannot be estimated because of the lack of a measurable TR jet velocity. Pulmonic Valve: The pulmonic valve is not well visualized. There is no pulmonic valvular stenosis. There is trace pulmonic regurgitation. Great Vessels: The aortic root is normal size. The ascending aorta is normal in size. The pulmonary artery is normal size. The IVC is of normal diameter and collapses greater than 50% with a sniff. This suggests a low right atrial pressure of 3 mm Hg. Pericardium/ Pleura There is no pericardial effusion. There is no pleural effusion. MMode/2D Measurements & Calculations LVIDd: 4.1 cm LVOT diam: 2.0 cm LVIDs: 2.2 cm Ao root diam: 3.4 cm FS: 46.3 % asc Aorta Diam: 3.2 cm IVSd: 1.1 cm LVPWd: 1.1 cm LV vela. diameter/BSA (cm/m^2): 2.0 LV sys. diameter/BSA (cm/m^2): 1.1 LA A2 area: 11.8 cm2 RA long axis: 4.2 cm LA A4 area: 8.6 cm2 RA area: 8.6 cm2 LA length (vol): 4.5 cm RA vol: 14.9 ml LA vol: 18.9 ml RA : 7.3 ml/m2 LA vol index: 9.2 ml/m2 RVD1 (basal): 3.1 cm LVLs ap4: 6.3 cm LVLd ap2: 7.6 cm TAPSE_phl: 2.8 cm LVLs ap2: 5.9 cm Doppler Measurements & Calculations Ao V2 max: 123.8 cm/sec LVOT Max Warren: 109.3 cm/sec Ao V2 mean: 83.0 cm/sec LV V1 max P.8 mmHg Ao max P.0 mmHg LV V1 VTI: 21.6 cm Ao mean P.0 mmHg JOSE RAMON(I,D): 2.6 cm2 Ao V2 VTI: 25.7 cm JOSE RAMON(V,D): 2.7 cm2 sev ratio: 0.84 JOSE RAMON indexed to BSA (cm^2/m^2): 1.3 MV E max warren: 66.8 cm/sec PA V2 max: 95.1 cm/sec MV A max warren: 101.0 cm/sec PA V2 mean: 63.7 cm/sec MV E/A: 0.66 PA mean P.0 mmHg Med Peak E' Warren: 8.7 cm/sec PA pr(Accel): 43.5 mmHg E/E' med: 7.7 Lat Peak E' Warren: 8.1 cm/sec E/E' lat: 8.2 E/e' average: 8.0 MV dec time: 0.25 sec SV(LVOT): 66.0 ml AV VR_phl: 0.88 Reading Physician:05:37 PM
== END ==
PROVIDERS: Family Provider Family Medicine; PCP Family Medicine; Referring Provider Family Medicine; Visit Provider Family Medicine
DX: R07.89 Other chest pain (principal); I10 Essential (primary) hypertension; I35.8 Other nonrheumatic aortic valve disorders
CPT/HCPCS: 93306

== ENCOUNTER → 2023-07-09 10:06 | Outpatient (CLI) | payer MEDICARE, BC, SELFPAY ==
--- NOTE | 2023-07-09 16:58 | DIAB.FU ---
Follow-up Diabetes Education Assessment Name: Dawn Rios (Eric) Date: 07/09/23 Time: [id number] Dx: Type II Diabetes Eric presents for Dm follow-up. Reports no change to Dm meds since last visit. hgA1c consistently at 6.6% last two labs. Plans for new labs/PCP visit this month. Continues on Metformin and Glipizide. Has questions about medication SE and actions. Not crazy about being medications. Started statin with Adelia's recommendation and saw significant reduction in LDL. Denies any SEs on statin, though again not happy about taking more meds. Been checking BP at home, 130s/80s. Feels BP has improved with meditation. Not wanting to start BP med. Has scheduled stress test. Continues with ED difficulty. Working on this with provider. Is aware that DM can impact ED. Having challenges with cooking for one, especially since passed 5 years ago. States that he throws out a lot of food, especially produce. Reports binge behaviors between 8-11pm. This includes ben almonds, whole wheat mini cakes, biscotti, sometimes fruit pops. Limited water reported. 2c coffee daily. Physical Activity: Orthopedic challenges with hip and knee pain. No rowing. Some walking. Down from his previous 2-3x per week. Currently averaging 3000 steps per day. Seeing a new PT in Aug. Self-Monitoring Blood Glucose: None, not interested at this time. Diabetes Medications: Metformin 2000mg Glipizide 2.5mg Pertinent Labs: Much improved hgA1c and lipids 01/2023 HgA1c 6.6% 10/2022 HgA1c: 6.6% Chol: 162 T LDL: 97 HDL: 49 07/2023: HgA1c 8.9% Chol: 314 T LDL: 223 HDL: 50 Past Medical History: (Last Updated 05/21/23 @ 14:15 by rKisti Delvalle DO) Benign essential HTN Chronic back pain (~2017) Chronic knee pain Chronic neck pain Erectile dysfunction Grieving Hearing loss HSV-2 (herpes simplex virus 2) infection Hyperlipidemia Low back pain Peripheral neuropathy Type 2 diabetes mellitus without complication, with no history of insulin use (~2019) Intervention: This participant was very receptive. Provided appropriate educational handouts. Discussed the following topics: Recent HgA1c results and goals HgA1c versus SMBG Medication management: actions, SE, pros/cons of DM medications Review of general nutrition recommendations and current intake Physical activity plan and impact on blood sugars Prevention of complications: heart health, erectile dysfunction Snack ideas and reducing binge evening eating Fluid intake Created SMART goals for patient self-care and success. Goals: Walk [place] park- met Walk 3x per week- in progress Set 10p snack and choose one option- not met Increase water intake- not met Restart walking safely- new Try snack idea discussed- new Follow-up: SUDARSHAN LORA follow-up in August. Joy Tolbert RDN, [facility] Certified Diabetes Care and Manufacturing Manager P: [phone] Thank you for this referral
== END ==
PROVIDERS: Family Provider Family Medicine; PCP Family Medicine; Referring Provider Family Medicine; Visit Provider Family Medicine
DX: E11.9 Type 2 diabetes mellitus without complications (principal); Z79.84 Long term (current) use of oral hypoglycemic drugs; Z71.3 Dietary counseling and surveillance
CPT/HCPCS: G0108

== ENCOUNTER → 2023-07-22 15:12 | Outpatient (CLI) | payer MEDICARE, BC, SELFPAY ==
--- NOTE | 2023-07-24 10:41 | DI.NM.S_ITS ---
DATE OF SERVICE: 07/22/2023 PROCEDURE PERFORMED: Exercise treadmill stress test without imaging. ORDERING PROVIDER: Kristi Delvalle DO INDICATIONS: The patient is a 72-year-old hypertensive diabetic male with diffuse musculoskeletal discomfort. FINDINGS: 1. The patient was able to exercise for 9 minutes on a standard Jas protocol suggesting excellent exercise capacity with an REBECCA of -33%, achieving 10.1 METS. 2. He had a normal heart rate response to exercise, achieving a maximum heart rate of 156 BPM (105% of his predicted maximum). He had a moderate hypertensive blood pressure response with a resting blood pressure of 140/80 increasing to a maximum of 223/85. 3. He had no chest discomfort or other anginal symptoms. 4. His resting ECG showed sinus rhythm with normal ST segments. With stress, there were no significant ST-segment shifts or arrhythmias. IMPRESSION: 1. Normal exercise treadmill stress test for ischemia. 2. Excellent exercise capacity without angina or arrhythmias. He had a moderate hypertensive blood pressure response to exercise. Dawn Rios - NACHO/holly/BRIDGET doc#: [id number]/job#: [id number] dd: 07/22/2023 16:57:00 dt: 07/22/2023 23:57:00 DICTATING MD/COPIES TO: Armando Esteves MD; Kristi Delvalle DO COPIES MNE: JULES;
== END ==
PROVIDERS: Family Provider Family Medicine; PCP Family Medicine; Referring Provider Family Medicine; Visit Provider Family Medicine
DX: R07.89 Other chest pain (principal); I10 Essential (primary) hypertension; R09.81 Nasal congestion; E11.9 Type 2 diabetes mellitus without complications
CPT/HCPCS: 93017

== ENCOUNTER → 2023-07-24 08:52 | Outpatient (CLI) | payer MEDICARE, BC, SELFPAY ==
[2023-07-24 10:17] LABS: Hemoglobin A1C% w Est Avg Glu 7.6 % (4.0-6.0)
[2023-07-24 10:30] LABS: Alanine Aminotransferase 25 IU/L (<50); Albumin 4.3 g/dL (3.5-5.0); Albumin Globulin Ratio 1.3 (1.0-2.8); Alkaline Phosphatase 51 U/L (38-126); Aspartate Aminotransferase 27 IU/L (17-59); Blood Urea Nitrogen 17 mg/dL (9-20); Calcium 9.6 mg/dL (8.4-10.2); Carbon Dioxide 29 mmol/L (22-32); Chloride 100 mmol/L (98-107); Cholesterol 182 mg/dL (140-199); Estimated Glomerular Filt Rate > 60 mL/min (>60); Globulin 3.2 g/dL (1.7-4.1); Glucose 170 mg/dL (80-110); HDL Cholesterol 47 mg/dL (40-60); HEMOLYSIS < 15 (0-50); LDL Cholesterol Calculated 93 mg/dL (<100); Potassium 4.4 mmol/L (3.4-5.1); Sodium 136 mmol/L (137-145); Total Protein 7.5 g/dL (6.3-8.2); Triglycerides 211 mg/dL (35-150)
[2023-07-24 10:58] LABS: Prostate Specific Antigen Scrn 1.02 ng/mL (0.1-4.0)
[2023-07-24 16:00] LABS: Creatinine Urine Random 148.6 mg/dL
[2023-07-24 16:02] LABS: Microalbumi Creatinin Ratio Ur 67.2 ug/mg CR (<30)
== END ==
PROVIDERS: Family Provider Family Medicine; PCP Family Medicine; Referring Provider Family Medicine; Visit Provider Family Medicine
DX: Z12.5 Encounter for screening for malignant neoplasm of prostate (principal); E11.9 Type 2 diabetes mellitus without complications; E78.5 Hyperlipidemia, unspecified; G62.9 Polyneuropathy, unspecified; N52.9 Male erectile dysfunction, unspecified
CPT/HCPCS: 36415; 80053; 80061; 82043; 82570; 83036; G0103

== ENCOUNTER → 2023-08-14 12:58 | Outpatient (CLI) | payer MEDICARE, BC, SELFPAY ==
--- NOTE | 2023-08-27 16:36 | DIAB.MNTFU ---
Follow-up Diabetes Medical Nutrition Therapy Assessment Name: Dawn Rios (Eric) Date: 08/14/23 Time: 105-245p Dx: Type II Diabetes Eric presents for follow-up regarding DM. States he has been on a plant-based diet with some eggs/cheese/fish, no other meat. Wants to try this for 30 days to see if lab work improves. Has stopped evening binging. Gait is noticeably different due to knee pain. Started PT in pool. Interested in stationary bike. Eating lot of veg. Wants to lose weight. meditation q morning and taking BP, which reports is 130/80. Higher in PCP visit. Reports possible hip replacement needed. Sees ortho for more info in Aug and sep. Motivated to get BG down with potential ortho sx. needed. Diet recall indicates high carb intake with prunes and breakfast. Little to eat mid day and then dinner. Anthropometrics: Ht: 69 Wt: 206# last PCP yesterday Physical Activity: PT in pool 1-2 x per week Self-Monitoring Blood Glucose: none but more open to this given potential ortho sx and need for better bg management for healing. Needs rx for meter/supplies. Diabetes Medications: Metformin 2000mg Glipizide 2.5mg Pertinent Labs: hga1c increased. TG up from 80 to 211. 07/2023 HgA1c 7.6% T H 01/2023 HgA1c 6.6% 10/2022 HgA1c: 6.6% Chol: 162 T LDL: 97 HDL: 49 07/2023: HgA1c 8.9% Chol: 314 T LDL: 223 HDL: 50 Past Medical History: (Last Updated 08/15/23 @ 18:13 by Kristi Delvalle DO) Benign essential HTN Chronic back pain (~2018) Chronic knee pain Chronic neck pain Encounter for subsequent annual wellness visit (AWV) in Medicare patient Erectile dysfunction Grieving Hearing loss HSV-2 (herpes simplex virus 2) infection Hyperlipidemia Low back pain Microalbuminuria due to type 2 diabetes mellitus Peripheral neuropathy Type 2 diabetes mellitus with microalbuminuria, without long-term current use of insulin Nutrition Rx: Plate Method Nutrition Diagnosis: - Inconsistent energy intake r/t knowledge deficit aeb diet recall- cont - Self monitoring deficit r/t stage of change preparation aeb pt report of SMBG - Predicted excessive CHO intake r/t prunes with breakfast aeb diet recall Intervention: This participant was very receptive. Provided appropriate educational handouts. Discussed the following topics: Meal planning and carb counting review Physical activity plan and progress and strategies with knee pain Usual recs for HgA1c and surgery SMBG: when to check, reasoning for checks, how to check Mid day snack to reduced fasting mid day and help with portions in evening Plant based diet benefits and sustainability Created SMART goals for patient self-care and success. Goals: Restart walking safely- not met Try snack idea discussed- not met Ask PT about stationary bike safety- new Ask ortho about hga1c req- new Add mid day snack- new move prunes to mid day- new Follow-up: SUDARSHAN LORA follow-up in 3-4 weeks. MIKALA msged provider about rx for SMBG. Joy Tolbert RDN, [facility] Certified Diabetes Care and Tire Maintenance Technician P: [phone] Thank you for this referral
== END ==
PROVIDERS: Family Provider Family Medicine; PCP Family Medicine; Referring Provider Family Medicine; Visit Provider Family Medicine
DX: E11.9 Type 2 diabetes mellitus without complications (principal); Z79.84 Long term (current) use of oral hypoglycemic drugs; Z71.3 Dietary counseling and surveillance
CPT/HCPCS: 97803

== ENCOUNTER → 2023-09-17 12:58 | Outpatient (CLI) | payer MEDICARE, BC, SELFPAY ==
--- NOTE | 2023-09-25 13:47 | DIAB.FU ---
Follow-up Diabetes Education Assessment Name: Dawn Rios (Eric) Date: 09/17/23 Time: 1220p Dx: Type II Diabetes Eric presents for follow-up visit. Reports continued plant based diet. Has been adding a small lunch/snack mid day, as discussed last visit. Some high carb intake with fig bars in the morning with breakfast. Recently had cortisone shot for knee pain, predicted hyperglycemia as a result but no SMBG currently. States ortho wants HgA1c of 7.5% or less for surgery. Reports bottom of feet numbness for a couple of years. Not checking BG due to feeling as though that makes the diagnosis feel very real. was keeping nuts as a snack previously when hgA1c was better. Keeps nuts in pantry, potential for rancidity over time. Physical Activity: continues PT pool therapy x 3 hr 2x per week. bought a stationary mini bike, though has not used yet. Self-Monitoring Blood Glucose: none. Has not picked up meter and strips. Diabetes Medications: Metformin 2000mg Glipizide 2.5mg Pertinent Labs: hga1c increased. TG up from 80 to 211. 07/2023 HgA1c 7.6% T H 01/2023 HgA1c 6.6% 10/2022 HgA1c: 6.6% Chol: 162 T LDL: 97 HDL: 49 07/2023: HgA1c 8.9% Chol: 314 T LDL: 223 HDL: 50 Past Medical History: (Last Updated 08/15/23 @ 18:13 by Kristi Delvalle DO) Benign essential HTN Chronic back pain (~2018) Chronic knee pain Chronic neck pain Encounter for subsequent annual wellness visit (AWV) in Medicare patient Erectile dysfunction Grieving Hearing loss HSV-2 (herpes simplex virus 2) infection Hyperlipidemia Low back pain Microalbuminuria due to type 2 diabetes mellitus Peripheral neuropathy Type 2 diabetes mellitus with microalbuminuria, without long-term current use of insulin Intervention: This participant was very receptive. Provided appropriate educational handouts. Discussed the following topics: Rationale for hga1c recs and surgery: healing time and infection Carb portions and meal timing Benefits of SMBG, when to check, rationale for checking, BG goals Review of general nutrition recommendations and current intake Physical activity plan and impact on blood sugars Prevention of complications: foot care Storage of nuts Snack ideas Created SMART goals for patient self-care and success. Goals: Ask PT about stationary bike safety- met Ask ortho about hga1c req- met Add mid day snack- met move prunes to mid day- met Ask about meter at pharmacy- new Store nuts in the fridge- new Eat nuts for snack- new Avoid fig bar or dried fruit with meals- new Follow-up: SUDARSHAN LORA follow-up in 2-3 weeks recommended. Eric would like to return in November. Some stage of change considerations and barriers. Encouraged him to call or message for sooner f/u prn. He agreed. oJy Tolbert RDN, [facility] Certified Diabetes Care and Body Liner P: [phone] Thank you for this referral
== END ==
PROVIDERS: Family Provider Family Medicine; PCP Family Medicine; Referring Provider Family Medicine; Visit Provider Family Medicine
DX: E11.9 Type 2 diabetes mellitus without complications (principal); Z79.84 Long term (current) use of oral hypoglycemic drugs; Z71.3 Dietary counseling and surveillance
CPT/HCPCS: G0108

== ENCOUNTER → 2023-09-28 10:16 | Outpatient (CLI) | payer MEDICARE, BC, SELFPAY ==
--- NOTE | 2023-09-28 10:17 | DI.MRI.S_ITS ---
PROCEDURE: MR KNEE LT WO CON INDICATIONS: sharp medial pain after walking in hole TECHNIQUE: Noncontrast sagittal PD fast spin echo and T2 fast spin echo with fat saturation, sagittal 3-D FLASH with fat saturation; coronal T1 spin echo and PD fast spin echo with fat saturation, and axial PD fast spin echo with fat saturation through the knee. COMPARISON: [facility], CR, XR KNEE LT 3V, 03/07/2023, 17:20. FINDINGS: Image quality: Diagnostic Menisci: Medial: Primarily horizontal tear involving the undersurface of the posterior horn. Lateral: Primarily horizontal tear involving the periphery. Cruciate ligaments: Suspected mild central mucoid degeneration of the ACL, without full-thickness defect. PCL appears intact Medial structures: MCL: Mild periligamentous edema. Mild focal signal abnormality in the mid tendon. Pes anserine tendons: Sepo-xc-ytihpuoy bursitis Semimembranosus: Mild insertional tendinopathy and tenosynovitis Lateral structures: LCL: Mild periligamentous edema and internal signal abnormality Biceps femoris: Intact IT band: Intact Popliteus tendon: Mild insertional tendinopathy Anterior structures: Extensor mechanism: Mild insertional tendinopathy at the quadriceps Fat pads: Moderate focal Hoffa's fat pad edema Medial retinaculum: Intact. Trochlea: Unremarkable morphology. Bone and joint: Bones: No acute fracture Cartilage: Multifocal osteophytes. No full-thickness defect or subchondral edema however overall dihz-ci-rhlqhrod heterogeneity and partial thickness thinning is present involving all 3 compartments, particularly on the patella Patellar enthesopathy. Joint space: Trace joint effusion Mix's cyst: Small Mix's cyst, possibly with recent rupture Soft tissues: Unremarkable IMPRESSION: Possible injury to the posteromedial corner structures, with pes anserine bursitis, partial tear of the MCL, and tendinopathy and tenosynovitis of the semimembranosus. There may be an adjacent small ruptured Mix's cyst. Primarily horizontal meniscal tears, likely degenerative. Suspected mucoid degeneration of the ACL without full-thickness defect. Suspected sprain also seen in the LCL, versus sequelae of prior injury/scar. Mild insertional tendinopathy of the quadriceps. Moderate focal Hoffa's fat pad edema is nonspecific. Batf-vu-fidohyeg degenerative changes without full-thickness cartilage defect. Partial thickness cartilage loss particularly seen at the patella. Multifocal osteophytes. Dictated by: Eric Bains M.D. on 09/30/2023 at 9:19 Approved by: Eric Bains M.D. on 09/30/2023 at 9:25
--- NOTE | 2023-09-28 10:19 | DI.MRI.S_ITS ---
PROCEDURE: MR KNEE RT WO CON INDICATIONS: osteoarthritis, right knee; LT KNEE PAIN TECHNIQUE: Noncontrast sagittal PD fast spin echo and T2 fast spin echo with fat saturation, sagittal 3-D FLASH with fat saturation; coronal T1 spin echo and PD fast spin echo with fat saturation, and axial PD fast spin echo with fat saturation through the knee. COMPARISON: [facility], MR, MR KNEE LT WO CON, 09/28/2023, 10:29. FINDINGS: Image quality: Diagnostic Menisci: Medial: There is free edge truncation with complex tear of the body and posterior horn Lateral: Possible small horizontal tear versus internal degenerative signal abnormality. Cruciate ligaments: Intact Medial structures: MCL: Intact Pes anserine tendons: Intact Semimembranosus: Intact Lateral structures: LCL: Mild thickening at the proximal aspect with signal abnormality Biceps femoris: Intact IT band: Intact Popliteus tendon: Mild insertional tendinopathy and tenosynovitis in the mid tendon Anterior structures: Extensor mechanism: Intact Fat pads: Moderate focal for Hoffa's fat pad edema. Mild prepatellar edema Medial retinaculum: Intact. Trochlea: Unremarkable morphology. Bone and joint: Bones: No acute fracture Cartilage: Multifocal osteophytes. No full-thickness defect or significant subchondral edema. Bitq-gj-odvuvppu cartilage heterogeneity and partial thickness thinning, particularly at the patella Joint space: Trace joint effusion Mix's cyst: None Soft tissues: No significant vascular or other soft tissue pathology. IMPRESSION: Cruciate and collateral ligaments are intact. Possible sprain versus prior injury/scar at the proximal LCL. Complex tear of the medial meniscus, with free edge truncation. Likely small degenerative tear of the lateral meniscus. Moderate focal Hoffa's fat at the edema. Trace joint effusion. Wzja-se-groavalq overall changes of osteoarthritis. Dictated by: Eric Bains M.D. on 09/30/2023 at 9:26 Approved by: Eric Bains M.D. on 09/30/2023 at 9:31
== END ==
LOC: MRI 10:17
PROVIDERS: Family Provider Family Medicine; PCP Family Medicine; Referring Provider Physician Assistant; Visit Provider Physician Assistant
DX: S83.231A Complex tear of medial meniscus, current injury, right knee, initial encounter (principal); S83.282A Other tear of lateral meniscus, current injury, left knee, initial encounter; S83.242A Other tear of medial meniscus, current injury, left knee, initial encounter; S89.92XA Unspecified injury of left lower leg, initial encounter; M65.862 Other synovitis and tenosynovitis, left lower leg; M17.0 Bilateral primary osteoarthritis of knee; M25.462 Effusion, left knee
CPT/HCPCS: 73721

== ENCOUNTER → 2023-11-13 07:34 | Outpatient (CLI) | payer MEDICARE, BC, SELFPAY ==
[2023-11-13 08:52] LABS: Hemoglobin A1C% w Est Avg Glu 7.5 % (4.0-6.0)
[2023-11-13 09:19] LABS: BUN Creatinine Ratio 19.8 (6-22); Blood Urea Nitrogen 19 mg/dL (9-20); Calcium 9.5 mg/dL (8.4-10.2); Carbon Dioxide 27 mmol/L (22-32); Chloride 100 mmol/L (98-107); Cholesterol 155 mg/dL (140-199); Estimated Glomerular Filt Rate > 60 mL/min (>60); Glucose 163 mg/dL (80-110); HDL Cholesterol 45 mg/dL (40-60); HEMOLYSIS < 15 (0-50); LDL Cholesterol Calculated 81 mg/dL (<100); Potassium 4.6 mmol/L (3.4-5.1); Sodium 136 mmol/L (137-145); Triglycerides 145 mg/dL (35-150)
[2023-11-13 11:03] LABS: Creatinine Urine Random 181.5 mg/dL
[2023-11-13 11:07] LABS: Microalbumi Creatinin Ratio Ur 42.9 ug/mg CR (<30); Microalbumin Urine Random 7.8 mg/dL (0-1.6)
== END ==
LOC: LAB 07:35
PROVIDERS: Family Provider Family Medicine; PCP Family Medicine; Referring Provider Family Medicine; Visit Provider Family Medicine
DX: E11.29 Type 2 diabetes mellitus with other diabetic kidney complication (principal); R80.9 Proteinuria, unspecified; I10 Essential (primary) hypertension
CPT/HCPCS: 36415; 80048; 80061; 82043; 82570; 83036

== ENCOUNTER → 2023-11-26 09:30 | Outpatient (CLI) | payer MEDICARE, BC, SELFPAY ==
--- NOTE | 2023-12-06 08:15 | DIAB.MNTFU ---
Follow-up Diabetes Medical Nutrition Therapy Assessment Name: Dawn Rios (Eric) Date: 11/26/23 Time: [id number] Dx: Type II Diabetes Eric presents for Dm follow-up. Wants to discuss diet and potential medications for Dm management. Brief discussion about GLP1 and SGLT2i with PCP last visit. Despite diet changes, hgA1c continues above goal at 7.5%. Continues with plant based proteins with added fish, egg, and cheese. Feels he is not eating enough veggies though. Fresh veggies go bad before he gets to eat them. Diet recall indicates mostly low to moderate CHO choices, with exception to some higher CHO snacks, ie fig bars. States evening snacking is improved but still a concern. When staying up late, tending to eat more. Anthropometrics: Ht: 6' Wt: 198# 11/2023 Prev Wt: 206# 08/2023 Physical Activity: Pool therapy 1-2 x per week; wants to start using electric bike. Has hand weights, but he is not using them. Self-Monitoring Blood Glucose: None and not interested at this time. Diabetes Medications: Metformin 2000mg Glipizide 2.5mg (not taking) Pertinent Labs: 11/2023 HgA1c: 7.5% 07/2023 HgA1c 7.6% T H 01/2023 HgA1c 6.6% 10/2022 HgA1c: 6.6% Chol: 162 T LDL: 97 HDL: 49 07/2023: HgA1c 8.9% Chol: 314 T LDL: 223 HDL: 50 Past Medical History: (Last Updated 08/15/23 @ 18:13 by Kristi Delvalle DO) Benign essential HTN Chronic back pain (~2018) Chronic knee pain Chronic neck pain Encounter for subsequent annual wellness visit (AWV) in Medicare patient Erectile dysfunction Grieving Hearing loss HSV-2 (herpes simplex virus 2) infection Hyperlipidemia Low back pain Microalbuminuria due to type 2 diabetes mellitus Peripheral neuropathy Type 2 diabetes mellitus with microalbuminuria, without long-term current use of insulin Nutrition Rx: Carbohydrates: Meal:45g Snack:15-30g Nutrition Diagnosis: Excessive CHO intake r/t evening snack choices aeb diet recall Intervention: This participant was very receptive. Provided appropriate educational handouts. Discussed the following topics: Nutrition review Snack options and carb content Meal timing SGLT2i v GLP1: action, SE, precautions, benefits, affordability Physical activity plan and progress Created SMART goals for patient self-care and success. Goals: Ask about meter at pharmacy- not met Store nuts in the fridge- in progress Eat nuts for snack- improved Avoid fig bar or dried fruit with meals- improved Go to bed at 11p-12a- new Stop eating after 9p- new Limit or avoid fig bars- new Ask [facility] about Jardiance preston- new Follow-up: SUDARSHAN LORA follow-up in 3-4 weeks Joy Tolbert RDN, [facility] Certified Diabetes Care and Er Physician P: [phone] Thank you for this referral
== END ==
PROVIDERS: Family Provider Family Medicine; PCP Family Medicine; Referring Provider Family Medicine; Visit Provider Family Medicine
DX: E11.9 Type 2 diabetes mellitus without complications (principal); Z79.84 Long term (current) use of oral hypoglycemic drugs; Z71.3 Dietary counseling and surveillance
CPT/HCPCS: G0270

== ENCOUNTER → 2024-01-02 09:27 | Outpatient (CLI) | payer MEDICARE, BC, SELFPAY ==
--- NOTE | 2024-01-16 11:13 | DIAB.MNTFU ---
Follow-up Diabetes Medical Nutrition Therapy Assessment Name: Dawn Rios (Eric) Date: 01/02/24 Time: 794-1002a Dx: Type II Diabetes Eric presents for DM follow-up. Main barriers to DM care for Eric seems to be stage of change. He reports he knows this is important, however having difficulty with motivation to make changes. Contemplation stage of change. Looking for motivation. Discussed the loss of his quite a bit today. May be impacting his motivation, understandably, since she passed as a healthy person otherwise from cancer. Jardiance was not affordable for him with his deductible and coinsurance. Restarted eating meat again since his brother was visiting. Feels proud that he did not eat meat for 4 months. Still meditating, which helps with his BP per report. Noticed increased urination frequency. Feeling as though he wants to do something about strength. Has stopped snacking after midnight. Anthropometrics: Ht: 6' Wt: 198# 11/2023 Prev Wt: 206# 08/2023 Physical Activity: Pool therapy on hold over the last two weeks, but he plans to restart Saturday and then 2 x per week; wants to start using electric bike. Has hand weights, but he is not using them. Self-Monitoring Blood Glucose: None and not interested at this time. Diabetes Medications: Metformin 2000mg Glipizide 2.5mg (not taking) Pertinent Labs: 11/2023 HgA1c: 7.5% 07/2023 HgA1c 7.6% T H 01/2023 HgA1c 6.6% 10/2022 HgA1c: 6.6% Chol: 162 T LDL: 97 HDL: 49 07/2023: HgA1c 8.9% Chol: 314 T LDL: 223 HDL: 50 Past Medical History: (Last Updated 08/15/23 @ 18:13 by Kristi Delvalle DO) Benign essential HTN Chronic back pain (~2018) Chronic knee pain Chronic neck pain Encounter for subsequent annual wellness visit (AWV) in Medicare patient Erectile dysfunction Grieving Hearing loss HSV-2 (herpes simplex virus 2) infection Hyperlipidemia Low back pain Microalbuminuria due to type 2 diabetes mellitus Peripheral neuropathy Type 2 diabetes mellitus with microalbuminuria, without long-term current use of insulin Nutrition Rx: Carbohydrates: Meal:45g Snack:15-30g Nutrition Diagnosis: Excessive CHO intake r/t evening snack choices aeb diet recall- improved Physical inactivity r/t stage of change contemplative and missing pool therapy recently aeb pt report Intervention: This participant was very receptive. Provided appropriate educational handouts. Discussed the following topics: What motivates him to stay healthy Finding purpose and motivation for healthy choices Benefits of limited meat intake Physical activity plan and benefits: blood sugar, blood pressure, maintaining independence Potential for CGM OTC this summer Created SMART goals for patient self-care and success. Goals: Go to bed at 11p-12a- +/- Stop eating after 9p- in progress Limit or avoid fig bars- met Ask [facility] about Jardiance preston- met Consider resistance training- new Follow-up: SUDARSHAN LORA follow-up rec within 4 weeks. Eric would like to f/u after next labs/PCP visit. Some concern for his BG management, as he is finding it difficult to move past stage of change barriers/motivation. May benefit from trial of CGM and potential OTC option this summer to see how lifestyle impacts BG. Will see him in February after labs. Joy Tolbert RDN, [facility] Certified Diabetes Care and Flakeboard Line Tender P: [phone] Thank you for this referral
== END ==
PROVIDERS: Family Provider Family Medicine; PCP Family Medicine; Referring Provider Family Medicine
DX: E11.9 Type 2 diabetes mellitus without complications (principal); Z71.3 Dietary counseling and surveillance
CPT/HCPCS: G0270

== ENCOUNTER → 2024-02-11 07:42 | Outpatient (CLI) | payer MEDICARE, BC, SELFPAY ==
[2024-02-11 08:58] LABS: Hemoglobin A1C% w Est Avg Glu 7.7 % (4.0-6.0)
[2024-02-11 09:59] LABS: Hep C Virus Ab w/Reflex Quant NEGATIVE s/c (NEGATIVE)
== END ==
PROVIDERS: Family Provider Family Medicine; PCP Family Medicine; Referring Provider Family Medicine; Visit Provider Family Medicine
DX: E11.29 Type 2 diabetes mellitus with other diabetic kidney complication (principal); R80.9 Proteinuria, unspecified; Z11.59 Encounter for screening for other viral diseases; E78.5 Hyperlipidemia, unspecified
CPT/HCPCS: 36415; 83036; 86803

== ENCOUNTER → 2024-02-26 08:59 | Outpatient (CLI) | payer MEDICARE, BC, SELFPAY ==
--- NOTE | 2024-03-24 16:41 | DIAB.MNTFU ---
Follow-up Diabetes Medical Nutrition Therapy Assessment Name: Dawn Rios (Eric) Date: 02/26/24 Time: [id number] Dx: Type II Diabetes Eric presents for DM follow-up. Reports increased eating out recently. States he thinks he eats too much CHO, ie 1/4-1/2 pound pasta in a sitting or trailmix in excess while watching TV. Eating twice per day, breakfast and dinner, which may be driving reason why portions at night are a challenge. States he lost 6-7# when he was not eating meat, but states he is eating meat again. Has not been able to start Jardiance due to cost .Has questions about getting rx from [facility] or compound pharmacy. Anthropometrics: Ht: 6' Wt: 197.5# 02/2024 198# 11/2023 206# 08/2023 Physical Activity: Pool therapy continues. Considering hiring development trainer. Self-Monitoring Blood Glucose: None and not interested at this time. Offered CGM sample. States he is on the fence about sample. Diabetes Medications: Metformin 2000mg Pertinent Labs: HgA1c: 6.6% 01/2023 7.6% 07/2023 7.5% 11/2023 7.7% 02/2024 Past Medical History: (Last Updated 08/15/23 @ 18:13 by Kristi Delvalle DO) Benign essential HTN Chronic back pain (~2018) Chronic knee pain Chronic neck pain Encounter for subsequent annual wellness visit (AWV) in Medicare patient Erectile dysfunction Grieving Hearing loss HSV-2 (herpes simplex virus 2) infection Hyperlipidemia Low back pain Microalbuminuria due to type 2 diabetes mellitus Peripheral neuropathy Type 2 diabetes mellitus with microalbuminuria, without long-term current use of insulin Nutrition Rx: Carbohydrates: Meal:45g Snack:15-30g Nutrition Diagnosis: Excessive CHO intake r/t long period of fasting during day resulting in large evening portions aeb diet recall- new Physical inactivity r/t stage of change contemplative aeb pt report- continued Self monitoring deficit r/t stage of change contemplative for CGM and not currently wanting to finger prick for SMBG aeb pt report - new Intervention: This participant was very receptive. Provided appropriate educational handouts. Discussed the following topics: Importance of meal timing and impact on evening portions Portions for BG management Physical activity options and goals Medication cost troubleshooting CGM benefits, application, and options Created SMART goals for patient self-care and success. Goals: Consider resistance training- not met Eat dinner at 5-6p- new Eat 3p snack with protein- new Portion out trailmix- new Ask pool gym about development trainer- new Follow-up: SUDARSHAN LORA follow-up rec within 4 weeks. Pt request 3 month follow-up. Joy Tolbert RDN, [facility] Certified Diabetes Care and Signal Repairer P: [phone] Thank you for this referral
== END ==
LOC: DIET 09:00
PROVIDERS: Family Provider Family Medicine; PCP Family Medicine; Referring Provider Family Medicine
DX: E11.9 Type 2 diabetes mellitus without complications (principal); Z71.3 Dietary counseling and surveillance
CPT/HCPCS: G0270

== ENCOUNTER → 2024-05-14 07:32 | Outpatient (CLI) | payer MEDICARE, SELFPAY ==
[2024-05-14 08:40] LABS: Hemoglobin A1C% w Est Avg Glu 7.6 % (4.0-6.0)
[2024-05-14 08:52] LABS: BUN Creatinine Ratio 14.9 (6-22); Blood Urea Nitrogen 15 mg/dL (9-20); Calcium 9.8 mg/dL (8.4-10.2); Carbon Dioxide 27 mmol/L (22-32); Chloride 99 mmol/L (98-107); Estimated Glomerular Filt Rate > 60 mL/min (>60); Glucose 147 mg/dL (80-110); HEMOLYSIS < 15 (0-50); Potassium 4.5 mmol/L (3.4-5.1); Sodium 134 mmol/L (137-145)
== END ==
PROVIDERS: Family Provider Family Medicine; PCP Family Medicine; Referring Provider Family Medicine; Visit Provider Family Medicine
DX: E11.29 Type 2 diabetes mellitus with other diabetic kidney complication (principal); R80.9 Proteinuria, unspecified; I10 Essential (primary) hypertension
CPT/HCPCS: 36415; 80048; 83036

== ENCOUNTER → 2024-05-27 10:01 | Outpatient (CLI) | payer MEDICARE, OTHER, SELFPAY ==
--- NOTE | 2024-05-27 10:06 | DIAB.MNTFU ---
Follow-up Diabetes Medical Nutrition Therapy Assessment Name: Dawn Rios (Eric) Date: 05/27/24 Time: 1005-11a Dx: Type II Diabetes Eric presents for DM follow-up. HgA1c recently 7.6%. States he was previously on a sulfonylurea but did not want to continue after hearing that it could exhaust insulin production. We did discuss potential for exhausting insulin production with persistent hyperglycemia. Other meds, SGLT2i and GLP1, have been cost prohibitive. States he eats out half the week. Has had a woman friend staying with him the last 2 weeks, which has been a positive impact on eating habits. Endorses more salads and reduced evening binging. Often still eating BID. This woman will be leaving to go back to [place] in one week. States he juana better off eating meat, but finds this difficult during the fall/winter season. Plans to go to [place] next month for Thanksgiving. Reports July ortho appt for hip/back/knee pain. Does not anticipate sx, but if needed he would need a hgA1c of 7.5% or less per report. Main concern as of recent is ED. has tried oral meds to help with this, but seems to have persistent circulation issues with potential roots in DM history and hyperglycemia. Reports feeling of neuropathy in feel pillow like under feet. Wants to reduce sugar. Wants to increase walks. Continues to find difficulty in motivation. Anthropometrics: Ht: 6' Wt: 189# reported -- personal goal of 180# 197.5# 02/2024 198# 11/2023 206# 08/2023 Physical Activity: Pool therapy discontinued. Still seeing PT. Considered hiring clinical trainer, but this is cost prohibitive. Self-Monitoring Blood Glucose: None and not interested at this time. Offered CGM sample. States he is on the fence about sample. Diabetes Medications: Metformin 2000mg Pertinent Labs: HgA1c: 6.6% 01/2023 7.6% 07/2023 7.5% 11/2023 7.7% 02/2024 7.6% 05/2024 Past Medical History: (Last Updated 08/15/23 @ 18:13 by Kristi Delvalle DO) Benign essential HTN Chronic back pain (~2018) Chronic knee pain Chronic neck pain Encounter for subsequent annual wellness visit (AWV) in Medicare patient Erectile dysfunction Grieving Hearing loss HSV-2 (herpes simplex virus 2) infection Hyperlipidemia Low back pain Microalbuminuria due to type 2 diabetes mellitus Peripheral neuropathy Type 2 diabetes mellitus with microalbuminuria, without long-term current use of insulin Nutrition Rx: Carbohydrates: Meal:45g Snack:15-30g Nutrition Diagnosis: Excessive CHO intake r/t long period of fasting during day resulting in large evening portions aeb diet recall- in progress/improved Physical inactivity r/t stage of change contemplative aeb pt report- continued Self monitoring deficit r/t stage of change contemplative for CGM and not currently wanting to finger prick for SMBG aeb pt report - continued Intervention: This participant was very receptive. Provided appropriate educational handouts. Discussed the following topics: Impact of hyperglycemia potentially on neuropathy and ED Reducing eating out Increasing safe activity Increasing veggies Medication options: potential for Jardiance if a MCR plan will cover, otherwise reconsiderations for sulfonlurea. Created SMART goals for patient self-care and success. Goals: Eat dinner at 5-6p- met Eat 3p snack with protein- not discussed Portion out trailmix- not discussed Ask pool gym about clinical trainer- not met Cook at home 3 days per week (protein/veggies)- new Follow-up: SUDARSHAN LORA follow-up in 2-3 weeks. Lifestyle change beyond current status seems to be challenging for Eric. Would recommend additional diabetes medication to help move hgA1c below 7%. Will discuss more in depth next visit. Joy Tolbert RDN, [facility] Certified Diabetes Care and Molecular Modeler P: [phone] Thank you for this referral
== END ==
PROVIDERS: Family Provider Family Medicine; PCP Family Medicine; Referring Provider Family Medicine
DX: E11.65 Type 2 diabetes mellitus with hyperglycemia (principal); Z79.84 Long term (current) use of oral hypoglycemic drugs; Z71.3 Dietary counseling and surveillance
CPT/HCPCS: 97803

== ENCOUNTER → 2024-07-16 12:54 | Outpatient (CLI) | payer MEDICARE, OTHER, SELFPAY ==
--- NOTE | 2024-09-08 15:21 | DIAB.MNTFU ---
Follow-up Diabetes Medical Nutrition Therapy Assessment Name: Dawn Rios (Eric) Date: 07/16/24 Time: Dx: Type II Diabetes Eric presents for DM follow-up. Endorses limited veggie intake. Choosing mostly chx and fish recently. Has questions about lifestyle change v additional medications. Historically has had a hard time making lifestyle changes. Would likely benefit from Dm medications, though these have been unaffordable. Has Sleep specialist appt today. UTD with dental. Open to trying CGM sample next visit. Might benefit from OTC option. Anthropometrics: Ht: 6' Wt: 189# reported previously -- personal goal of 180# 197.5# 02/2024 198# 11/2023 206# 08/2023 Self-Monitoring Blood Glucose: None and not interested at this time. Offered CGM sample. Diabetes Medications: Metformin 2000mg Pertinent Labs: HgA1c: 6.6% 01/2023 7.6% 07/2023 7.5% 11/2023 7.7% 02/2024 7.6% 05/2024 Past Medical History: (Last Updated 08/15/23 @ 18:13 by Kristi Delvalle DO) Benign essential HTN Chronic back pain (~2017) Chronic knee pain Chronic neck pain Encounter for subsequent annual wellness visit (AWV) in Medicare patient Erectile dysfunction Grieving Hearing loss HSV-2 (herpes simplex virus 2) infection Hyperlipidemia Low back pain Microalbuminuria due to type 2 diabetes mellitus Peripheral neuropathy Type 2 diabetes mellitus with microalbuminuria, without long-term current use of insulin Nutrition Rx: Carbohydrates: Meal:45g Snack:15-30g Nutrition Diagnosis: Excessive CHO intake r/t long period of fasting during day resulting in large evening portions aeb diet recall- in progress/improved Physical inactivity r/t stage of change contemplative aeb pt report- continued Self monitoring deficit r/t stage of change contemplative for CGM and not currently wanting to finger prick for SMBG aeb pt report - continued Intervention: This participant was very receptive. Provided appropriate educational handouts. Discussed the following topics: choosing lifestyle changes he can stick to Potential DM meds SGLT2i v GLP1 CGM pro/con, overall education Strategies for adding veggies Created SMART goals for patient self-care and success. Goals: Cook at home 3 days per week (protein/veggies)- not met Call [facility] about medication coverage for SGLT2i and GLP1- new Add veggies to meals- new Follow-up: SUDARSHAN LORA follow-up in 3-4 weeks Joy Tolbert RDN, [facility] Certified Diabetes Care and Rn Surgery [facility] P: [phone] Thank you for this referral
== END ==
LOC: DIET 12:54
PROVIDERS: Family Provider Family Medicine; PCP Family Medicine; Referring Provider Family Medicine
DX: E11.9 Type 2 diabetes mellitus without complications (principal); Z79.84 Long term (current) use of oral hypoglycemic drugs; Z71.3 Dietary counseling and surveillance
CPT/HCPCS: G0270

== ENCOUNTER → 2024-08-04 11:19 | Outpatient (CLI) | payer MEDICARE, OTHER, SELFPAY ==
[2024-08-04 12:43] LABS: Hemoglobin A1C% w Est Avg Glu 8.5 % (4.0-6.0)
[2024-08-04 12:55] LABS: Alanine Aminotransferase 23 IU/L (<50); Albumin 4.2 g/dL (3.5-5.0); Albumin Globulin Ratio 1.6 (1.0-2.8); Alkaline Phosphatase 55 U/L (38-126); Aspartate Aminotransferase 24 IU/L (17-59); BUN Creatinine Ratio 13.3 (6-22); Bilirubin Total 0.8 mg/dL (0.2-1.3); Blood Urea Nitrogen 14 mg/dL (9-20); Calcium 9.6 mg/dL (8.4-10.2); Carbon Dioxide 28 mmol/L (22-32); Chloride 99 mmol/L (98-107); Estimated Glomerular Filt Rate > 60 mL/min (>60); Globulin 2.6 g/dL (1.7-4.1); Glucose 220 mg/dL (80-110); HEMOLYSIS < 15 (0-50); Potassium 4.8 mmol/L (3.4-5.1); Sodium 133 mmol/L (137-145); Total Protein 6.8 g/dL (6.3-8.2)
[2024-08-04 14:23] LABS: Creatinine Urine Random 64.88 mg/dL
[2024-08-04 14:28] LABS: Microalbumin Urine Random 4.5 mg/dL (0-1.6)
== END ==
LOC: LAB 11:20
PROVIDERS: Family Provider Family Medicine; PCP Family Medicine; Referring Provider Family Medicine; Visit Provider Family Medicine
DX: E11.29 Type 2 diabetes mellitus with other diabetic kidney complication (principal); R80.9 Proteinuria, unspecified; E78.5 Hyperlipidemia, unspecified; N52.9 Male erectile dysfunction, unspecified
CPT/HCPCS: 36415; 80053; 82043; 82570; 83036

== ENCOUNTER → 2024-09-15 09:03 | Outpatient (CLI) | payer MEDICARE, OTHER, SELFPAY ==
--- NOTE | 2024-09-15 16:37 | DIAB.FU ---
Follow-up Diabetes Education Assessment Name: Dawn Rios (Eric) Date: 09/15/24 Time: 905-10a Dx: Type II Diabetes Eric presents for DM follow-up. Researched some pharmacies in [place]. Also called insurance regarding GLP1 and SGLT2i. Determined the most cost efficient way for a GLP1 is [place] Has questions about side effects and action of GLP1 v SGLT2i. Leaning toward GLP1 due to wt loss side effect, which he feels will help with his joint pain. Worries about self injection. Would like to bring first dose to our next visit. Wore sample CGM and was made more aware of his persistent elevated BG. Anthropometrics: Ht: 6' Wt: 203# 09/04/24 -- personal goal of 180# 201# 07/2024 197.5# 02/2024 198# 11/2023 206# 08/2023 Physical Activity: physical fitness trainer 1x per week. Self-Monitoring Blood Glucose: None and not interested at this time. Wore a CGM sample. Reports indicate frequent elevations, especially mid day and evening. TIR: 17% very high 49% high 34% in range 0% low or very low avmg/dl GMI: 8.2% std dev: 50mg/dl variance: 24.5% Diabetes Medications: Metformin 2000mg Pertinent Labs: HgA1c: 6.6% 01/2023 7.6% 07/2023 7.5% 11/2023 7.7% 02/2024 7.6% 05/2024 8.5% 07/2024 Past Medical History: Benign essential HTN Chronic back pain (~2018) Chronic knee pain Chronic neck pain Encounter for subsequent annual wellness visit (AWV) in Medicare patient Erectile dysfunction Grieving Hearing loss HSV-2 (herpes simplex virus 2) infection Hyperlipidemia Low back pain Microalbuminuria due to type 2 diabetes mellitus BARB (obstructive sleep apnea) Peripheral neuropathy Type 2 diabetes mellitus with microalbuminuria, without long-term current use of insulin Intervention: This participant was very receptive. Provided appropriate educational handouts. Discussed the following topics: BG review and trends and goals DM medications, SE, benefits, action, recommendations per ADA Injectable demonstration Created SMART goals for patient self-care and success. Goals: Wear CGM x 10.5 days- met Keep food journal- not met Call insurance GLP1 v SGLT2i- met If available, brick picker and bring Ozempic next visit- new Follow-up: SUDARSHAN LORA follow-up in 4 weeks Joy Tolbert RDN, [facility] Certified Diabetes Care and Intern Architect P: [phone] Thank you for this referral
== END ==
PROVIDERS: Family Provider Family Medicine; PCP Family Medicine; Referring Provider Family Medicine
DX: E11.9 Type 2 diabetes mellitus without complications (principal); Z79.84 Long term (current) use of oral hypoglycemic drugs; Z71.3 Dietary counseling and surveillance
CPT/HCPCS: G0108

== ENCOUNTER → 2024-10-09 13:48 | Outpatient (CLI) | payer MEDICARE, OTHER, SELFPAY ==
--- NOTE | 2024-11-03 08:52 | DIAB.MNTFU ---
Follow-up Diabetes Medical Nutrition Therapy Assessment Name: Dawn Rios (Eric) Date: 10/09/24 Time: 2-3p Dx: Type II Diabetes Eric presents for DM follow-up. Picked up Ozempic and brought today. States he can afford this, though does worry about cost ongoing and side effects. Has not made any diet changes. Snacking and cravings lately, difficulty with change. Wanting to lose wt. Anthropometrics: Ht: 6' Wt: 203# 09/04/24 -- personal goal of 180# 201# 07/2024 197.5# 02/2024 198# 11/2023 206# 08/2023 Physical Activity: service trainer 1x per week. Rode his bike today. Self-Monitoring Blood Glucose: None and not interested at this time. Diabetes Medications: Metformin 2000mg Ozempic- not started yet Pertinent Labs: HgA1c: 6.6% 01/2023 7.6% 07/2023 7.5% 11/2023 7.7% 02/2024 7.6% 05/2024 8.5% 07/2024 Past Medical History: Benign essential HTN Chronic back pain (~2017) Chronic knee pain Chronic neck pain Encounter for subsequent annual wellness visit (AWV) in Medicare patient Erectile dysfunction Grieving Hearing loss HSV-2 (herpes simplex virus 2) infection Hyperlipidemia Low back pain Microalbuminuria due to type 2 diabetes mellitus BARB (obstructive sleep apnea) Peripheral neuropathy Type 2 diabetes mellitus with microalbuminuria, without long-term current use of insulin Nutrition Rx: Carbohydrates: Meal:45g Snack:15-30g Nutrition Diagnosis: Excessive CHO intake r/t long period of fasting during day resulting in large evening portions aeb diet recall- in progress Physical inactivity r/t stage of change contemplative aeb pt report- improving Self monitoring deficit r/t stage of change precontemplative for finger prick for SMBG aeb pt report of not wanting to self monitor BG - continued Intervention: This participant was very receptive. Provided appropriate educational handouts. Discussed the following topics: Changes to his appetite recently and impact GLP1 may have Weight management strategies Eating frequency Return demo for injectable GLP1 GLP1 benefits, precautions, and Se Created SMART goals for patient self-care and success. Goals: If available, berry picker machine operator and bring Ozempic next visit- met Start Ozempic- new Try eating q 3-5 hours- new Follow-up: SUDARSHAN LORA follow-up in 3-4 weeks Joy Tolbert RDN, [facility] Certified Diabetes Care and Educational Paraprofessional P: [phone] Thank you for this referral
== END ==
PROVIDERS: Family Provider Family Medicine; PCP Family Medicine; Referring Provider Family Medicine
DX: E11.9 Type 2 diabetes mellitus without complications (principal); Z71.3 Dietary counseling and surveillance; Z79.84 Long term (current) use of oral hypoglycemic drugs
CPT/HCPCS: 97803

== ENCOUNTER → 2024-11-03 10:59 | Outpatient (CLI) | payer MEDICARE, OTHER, SELFPAY ==
--- NOTE | 2024-11-03 11:03 | DIAB.MNTFU ---
Follow-up Diabetes Medical Nutrition Therapy Assessment Name: Dawn Rios (Eric) Date: 11/03/24 Time: [id number] Dx: Type II Diabetes Eric presents for DM follow-up. Has been taking Ozempic without any SE. Plans to increase to 0.5mg next Saturday. Reports reduced appetite. Eating half portions of take out. binging on sugar at night has improved but still present per report. Snacks mostly on chocolate almonds, dark chocolate, and ice cream. Eating meals BID. Eats take out or at restaurant 5x per week between breakfast and dinner. Cooks some meals, but feels they go to waste. Considering making a protein shake with veggies/fruit. States he cannot buy fresh produce without it going bad. Cannot comfortably eat nuts, get stuck in his teeth. Also due to dental work, scheduled. Last eye exam 2021. Noticing some blurry vision. Smoking less marijuana, which likes helps with the appetite in the evening. Using c pap machine. Takes Mg for regular BM. Anthropometrics: Ht: 6' Wt: 203# 09/04/24 -- personal goal of 180# 201# 07/2024 197.5# 02/2024 198# 11/2023 206# 08/2023 Physical Activity: link trainer 1x per week and home resistance training 3x per week. Self-Monitoring Blood Glucose: None and not interested at this time. Diabetes Medications: Metformin 2000mg 0.25mg Ozempic Pertinent Labs: HgA1c: 6.6% 01/2023 7.6% 07/2023 7.5% 11/2023 7.7% 02/2024 7.6% 05/2024 8.5% 07/2024 Past Medical History: Benign essential HTN Chronic back pain (~2018) Chronic knee pain Chronic neck pain Encounter for subsequent annual wellness visit (AWV) in Medicare patient Erectile dysfunction Grieving Hearing loss HSV-2 (herpes simplex virus 2) infection Hyperlipidemia Low back pain Microalbuminuria due to type 2 diabetes mellitus BARB (obstructive sleep apnea) Peripheral neuropathy Type 2 diabetes mellitus with microalbuminuria, without long-term current use of insulin Nutrition Rx: Carbohydrates: Meal:45g Snack:15-30g Nutrition Diagnosis: Excessive CHO intake r/t long period of fasting during day resulting in large evening portions aeb diet recall- in progress Physical inactivity r/t stage of change contemplative aeb pt report- improved Self monitoring deficit r/t stage of change precontemplative for finger prick for SMBG aeb pt report of not wanting to self monitor BG - continued Intervention: This participant was very receptive. Provided appropriate educational handouts. Discussed the following topics: Reducing DM complications Reduced portions with eating out Strategies for batch cooking and freezing Strategies for storing and eating more fruits/veggies Potential shakes; veggies/fruit, [place] islander yogurt Created SMART goals for patient self-care and success. Goals: Start Ozempic- met Try eating q 3-5 hours- not met Schedule eye appt- new Follow dosing for Ozempic- new Start shakes- new Follow-up: SUDARSHAN LORA follow-up in 4-6 weeks Joy Tolbert RDN, [facility] Certified Diabetes Care and Overnight Caregiver P: [phone] Thank you for this referral
== END ==
PROVIDERS: Family Provider Family Medicine; PCP Family Medicine; Referring Provider Family Medicine
DX: E11.9 Type 2 diabetes mellitus without complications (principal); Z71.3 Dietary counseling and surveillance; Z79.85 Long-term (current) use of injectable non-insulin antidiabetic drugs; Z79.84 Long term (current) use of oral hypoglycemic drugs
CPT/HCPCS: 97803

== ENCOUNTER → 2025-01-08 10:52 | Outpatient (CLI) | payer MEDICARE, OTHER, SELFPAY ==
--- NOTE | 2025-01-08 10:56 | DIAB.MNTFU ---
Follow-up Diabetes Medical Nutrition Therapy Assessment Name: Dawn Rios (Eric) Date: 01/08/25 Time: Dx: Type II Diabetes Eric presents for DM follow-up. Has been taking Ozempic without any SE. Increased to 0.5mg. States he would like to limit increased doses. Endorses some impact on appetite and evening binging, however reports continued excessive chocolate and/or ice cream at night. Endorses constipation since starting GLP1, takes Mg which seems to help. Endorses inadequate fluid intake, which also likely contributes to BM concerns. Endorses BM q 3 days. Complete eye exam without concern. Complete dental exam, getting dental implants. His main concern today is numbness on the bottom of his feet. Wants to know what he can do about it. Historically, he seems to be in contemplative stage of change for lifestyle changes. He considers changes, but struggles with implementation per report. Diet recall: B: cream of buckwheat OR sami muffin L: nothing D: take out, ie Sinhala, Maldivian, or [place]er food sn: chocolate and/or ice cream water 8-12oz per day coffee 2 c per day Endorses reduced ETOH lately Less cooking at home per report. Difficulty with food waste and using produce before is spoils. we have reviewed strategies, but he endorses difficulty with implementing. States he has lost 10# had to move PCP appt to February. Anthropometrics: Ht: 6' Wt: 203# 09/04/24 -- personal goal of 180# 201# 07/2024 197.5# 02/2024 198# 11/2023 206# 08/2023 Physical Activity: strainer tender 1x per week and home resistance training 3x per week. Biking 1x per week. Walking 3x per week. Self-Monitoring Blood Glucose: None and not interested at this time. Diabetes Medications: Metformin 2000mg 0.5mg Ozempic Pertinent Labs: HgA1c: 6.6% 01/2023 7.6% 07/2023 7.5% 11/2023 7.7% 02/2024 7.6% 05/2024 8.5% 07/2024 Past Medical History: Benign essential HTN Chronic back pain (~2018) Chronic knee pain Chronic neck pain Encounter for subsequent annual wellness visit (AWV) in Medicare patient Erectile dysfunction Grieving Hearing loss HSV-2 (herpes simplex virus 2) infection Hyperlipidemia Low back pain Microalbuminuria due to type 2 diabetes mellitus BARB (obstructive sleep apnea) Peripheral neuropathy Type 2 diabetes mellitus with microalbuminuria, without long-term current use of insulin Nutrition Rx: Carbohydrates: Meal:45gSnack:15-30g Nutrition Diagnosis: Excessive CHO intake r/t long period of fasting during day resulting in large evening take out portions and sweets aeb diet recall- in progress Self monitoring deficit r/t stage of change precontemplative for finger prick for SMBG aeb pt report of not wanting to self monitor BG - continued Inadequate fluid intake r/t stage of change contemplative and increased need with constipation aeb diet recall and pt report and BM q 3 days Intervention: This participant was very receptive. Provided appropriate educational handouts. Discussed the following topics: Reducing DM complications Reduced portions of evening sweets Potential shakes; veggies/fruit, lithuanian yogurt Constipation MNT and increasing fluids Impact of hyperglycemia on neuropathy and erectile dysfunction hgA1c goal Barriers to change Created SMART goals for patient self-care and success. Goals: Schedule eye appt- met Follow dosing for Ozempic- met Start shakes- not met Aim for 2 glasses of water per day or more- new Follow-up: SUDARSHAN LORA follow-up in 6-8 weeks after labs and PCP visit Joy Tolbert RDN, [facility] Certified Diabetes Care and Laborer [employer] P: [phone] Thank you for this referral
== END ==
LOC: DIET 10:53
PROVIDERS: Family Provider Family Medicine; PCP Family Medicine; Referring Provider Family Medicine
DX: E11.9 Type 2 diabetes mellitus without complications (principal); Z79.85 Long-term (current) use of injectable non-insulin antidiabetic drugs; Z71.3 Dietary counseling and surveillance; Z79.84 Long term (current) use of oral hypoglycemic drugs
CPT/HCPCS: 97803

== ENCOUNTER → 2025-01-28 07:30 | Outpatient (CLI) | payer MEDICARE, OTHER, SELFPAY ==
[2025-01-28 08:55] LABS: Blood Urea Nitrogen 21 mg/dL (9-20); Calcium 9.4 mg/dL (8.4-10.2); Carbon Dioxide 29 mmol/L (22-32); Chloride 97 mmol/L (98-107); Cholesterol 166 mg/dL (140-199); Estimated Glomerular Filt Rate > 60 mL/min (>60); Glucose 139 mg/dL (70-99); HDL Cholesterol 45 mg/dL (40-60); HEMOLYSIS < 15 (0-50); LDL Cholesterol Calculated 97 mg/dL (<100); Potassium 4.8 mmol/L (3.4-5.1); Sodium 136 mmol/L (137-145); Triglycerides 121 mg/dL (35-150)
[2025-01-28 09:01] LABS: Hemoglobin A1C% w Est Avg Glu 6.5 % (4.0-6.0)
== END ==
PROVIDERS: Family Provider Family Medicine; PCP Family Medicine; Referring Provider Family Medicine; Visit Provider Family Medicine
DX: E11.29 Type 2 diabetes mellitus with other diabetic kidney complication (principal); R80.9 Proteinuria, unspecified; I10 Essential (primary) hypertension
CPT/HCPCS: 36415; 80048; 80061; 83036

== ENCOUNTER → 2025-03-12 10:45 | Outpatient (CLI) | payer MEDICARE, OTHER, SELFPAY ==
--- NOTE | 2025-04-20 15:28 | DIAB.MNTFU ---
Follow-up Diabetes Medical Nutrition Therapy Assessment Name: Dawn Rios (Eric) Date: 03/12/25 Time: [id number] Dx: Type II Diabetes Eric presents for DM follow-up. Continues taking Ozempic. Endorses wt loss, down to 175# reported. hgA1c improved to 6.5% in 01/2025. Reports reduced appetite. Improved constipation since last visit. Feels appetite has been cut in half. [place] foods upset GI. Endorses reduced binge eating in the evening. Recently started a relationship with a woman, and reports she cooks often for him. She works on a farm and increased access to veggCallApp. Endorses R foot pain/numbness, more than the L foot. Diet recall: B: eggs OR cream of buckwheat L: nothing D: soup or half sandwich or split meal eating out sn: 1 fudge bar + 3-4 chocolates water 16oz per day coffee 2 c per day Anthropometrics: Ht: 6' Wt: 188# at last PCP and 175# reported today 03/2025 203# 09/04/24 -- personal goal of 180# 201# 07/2024 197.5# 02/2024 198# 11/2023 206# 08/2023 Physical Activity: Reported previous visit: strainer tender 1x per week and home resistance training 3x per week. Biking 1x per week. Walking 3x per week. Self-Monitoring Blood Glucose: None and not interested at this time. Diabetes Medications: Metformin 2000mg 0.5mg Ozempic Pertinent Labs: HgA1c: 6.6% 01/2023 7.6% 07/2023 7.5% 11/2023 7.7% 02/2024 7.6% 05/2024 8.5% 07/2024 6.5% 01/2025 Past Medical History: Benign essential HTN Chronic back pain (~2018) Chronic knee pain Chronic neck pain Encounter for subsequent annual wellness visit (AWV) in Medicare patient Erectile dysfunction Grieving Hearing loss HSV-2 (herpes simplex virus 2) infection Hyperlipidemia Low back pain Microalbuminuria due to type 2 diabetes mellitus BARB (obstructive sleep apnea) Peripheral neuropathy Type 2 diabetes mellitus with microalbuminuria, without long-term current use of insulin Nutrition Rx: Carbohydrates: Meal:45g Snack:15-30g Nutrition Diagnosis: Inadequate fluid intake r/t stage of change and limited thirst aeb diet recall and pt report - improved/in progress Intervention: This participant was very receptive. Provided appropriate educational handouts. Discussed the following topics: Hydration improvement and goals Improvement in DM and weight management and nutrition Created SMART goals for patient self-care and success. Goals: Aim for 2 glasses of water per day or more- met Aim for 3 glasses of water per day or more- new Continue nutrition changes- new Follow-up: SUDARSHAN LORA follow-up in 3 months Joy Tolbert RDN, [facility] Certified Diabetes Care and Crayon Molding Machine Operator P: [phone] Thank you for this referral
== END ==
PROVIDERS: PCP Family Medicine; Referring Provider Family Medicine
DX: E11.9 Type 2 diabetes mellitus without complications (principal); Z71.3 Dietary counseling and surveillance; Z79.85 Long-term (current) use of injectable non-insulin antidiabetic drugs; Z79.84 Long term (current) use of oral hypoglycemic drugs
CPT/HCPCS: 97803

== ENCOUNTER → 2025-05-05 07:48 | Outpatient (CLI) | payer MEDICARE, OTHER, SELFPAY ==
[2025-05-05 09:08] LABS: Hemoglobin A1C% w Est Avg Glu 6.5 % (4.0-6.0)
== END ==
PROVIDERS: PCP Family Medicine; Referring Provider Family Medicine; Visit Provider Family Medicine
DX: E11.29 Type 2 diabetes mellitus with other diabetic kidney complication (principal); R80.9 Proteinuria, unspecified
CPT/HCPCS: 36415; 83036